=== PATIENT | female | born 1945 | race Caucasian/White ===

== ENCOUNTER → 2017-07-17 13:17 | Outpatient (CLI) | payer MEDICARE, SELFPAY ==
--- NOTE | 2017-07-17 13:24 | CT_ITS ---
STUDY: CT WRIST WITHOUT CONTRAST RIGHT REASON FOR EXAM: Female, 71 years old. Pain denies injury RADIATION DOSAGE (If Supplied By Facility): CTDIvol = ( 24.58 ) mGy, DLP = ( 517.58 ) mGycm. Individualized dose optimization techniques were used for this CT.? TECHNIQUE: Multiple axial images of the wrist were obtained from the distal radius and ulna to the mid phalanges. Sagittal coronal reformatted images are performed. COMPARISON: None. FINDINGS: The visualized fourth fifth second metacarpophalangeal joint show no significant evidence of degenerative change. However there is joint space narrowing and osteophyte formation seen in the third digit metacarpophalangeal joint. There is trace degenerative change in the first metacarpophalangeal joint. There is visualization of osteophyte formation at the first carpometacarpal joint. There is advanced degenerative change at the scaphoid trapezium joint space with bony erosion sclerosis and minimal heterotopic bone formation. There is partially visualized degenerative change in the distal interphalangeal joint of the first digit. There is a small focus of bone cyst or erosion within the lunate without evidence of collapse. There is a small focus of bone cysts involving the triquetrum and slight irregularity without evidence of an acute fracture. There is visualized degenerative change within the hamate and the triquetrum. There is minimal sclerosis or narrowing of the radiocarpal joint. There is a well-corticated density distal to the ulna suggesting possible old fracture. There is bony demineralization of the wrist which is somewhat patchy seen on images such as image #47 axial view of the coronal view image #23. There is no visualized soft tissue mass. There is minimal visible soft tissue swelling. CT/Extremity Upper without Contra IMPRESSION: There are mixed degenerative changes seen in the metacarpal joints and distal interphalangeal joint of the first digit with common osteoarthritic areas of the first carpometacarpal joint and the scaphoid trapezium joint space. Findings are most suggestive of probable osteoarthritis. Recommend correlation with rheumatoid laboratory values. There is no visualized evidence of an acute fracture. There is a somewhat patchy appearance of the bony mineralization of the distal radius which may represent osteoporosis however if possible recommend consideration for follow-up bone scan and/or MRI as well as correlation with any metastatic or metabolic bone history. Electronically Signed: Gabriela Teran MD at 13:59 EDT Tel , Service support ,
== END ==
PROVIDERS: Family Provider Student in an Organized Health Care Education/Training Program; PCP Student in an Organized Health Care Education/Training Program; Visit Provider Specialist
DX: M19.031 Primary osteoarthritis, right wrist (principal)
CPT/HCPCS: 73200

== ENCOUNTER → 2017-10-12 16:42 | Outpatient (CLI) | payer MEDICARE, SELFPAY | PROVIDERS: Visit Provider Obstetrics & Gynecology | DX: N76.4 Abscess of vulva (principal) | CPT/HCPCS: 87070; 87077; 87186; 87205 ==

== ENCOUNTER 2017-12-24 10:14 | Day surgery (SDC) | payer MEDICARE, SELFPAY ==
[2017-12-24] VITALS (9 sets, daily range): BP systolic 91–155; BP diastolic 65–88; PULSE 73–81; RESP 16; TEMP 36.1–37.3; O2SAT 93–97; BMI 35.6
--- NOTE | 2017-12-24 | IMM_PTH ---
PATIENT: JAD GORMAN [place] [facility] [id number] AGE/SX: 72/F ROOM: RE12/24/[address]: Dr. Elana Salamanca MD : 1945 BED: DIS: 12/24/2017 SPEC #: [id number] RECD: 12/25/17 14:45 STATUS: KHADRA REQ #: [id number] HAKEEM: 12/24/17 00:[address]: Elana Salamanca DEPT: IMMUNOHISTOCHEMISTRY RECD BY: Carolina Hoang ENTERED: 12/25/17 14:47 SP TYPE: IMMUNO OTHR DR: Dr. Addi Nicole, DO Tissues: A - Uterine cervix, NOS Procedures: MSH2 (add) MLH-1 (add) MSH6 (add) Anti-PMS2 (add) CEA (add) CK20 (add) CK7 (add) KI-67 (add) P53 (add) AK (add) Vimentin (add) 34BE12 (add) ER (initial) PHYSICIAN & [address] [address] SPECIMEN INFORMATION: Tissue Source: B - Uterine polyps Clinical Info: Postmenopausal bleeding, endometrial hyperplasia Specimen Number: [id number] CPT code: 50401, 24099 x12 METHODOLOGY: Deparaffinized sections of prefer/formalin-fixed tissue or PAP/DQ stained slides are incubated with monoclonal/polyclonal antibodies/oligonucleotide probes. Localization is made via biotin free immunoperoxidase method. Appropriate controls are performed and reacted as expected. Results on target cell population are indicated in the following table: RESULTS: ANTIBODY / CLONE RESULT Block B ER (6F11) positive, dim AK (1E2) positive, dim CK7 (OV-TL12/30) positive CK20 (KS20.8) negative Vimentin (V9) positive CEA (11-7/TF-3HB-1) negative 34BE12 (34BE12) positive, focal Ki-67 (30-9) positive, moderate to high P53 (DO-7) positive, >95% MSH2 (25D12) positive MSH6 (44) positive MLH-1 (M1) positive PMS2 (FPW8578) positive These tests were developed and their performance characteristics determined by [facility]. They may not have been cleared or approved by the U.S. Food and Drug Administration. The FDA has determined that such clearance or approval is not necessary. INTERPRETATION: B. Uterine polyps: Endometrial adenocarcinoma, FIGO 3/3. AM:tony 12/26/17
--- NOTE | 2017-12-24 12:05 | UTC_PTH ---
PATIENT: JAD GORMAN LOC: [facility] [place] U#:[id number] AGE/SX: 72/F ROOM: RE12/24/[address]: Dr. Elana Salamanca MD : 1945 BED: DIS: 12/24/2017 SPEC #: [id number] RECD: 12/24/17 13:52 STATUS: KHADRA REIleana #: [id number] HAKEEM: 12/24/17 12:[address]: Elana Salamanca DEPT: SURGICAL PATHOLOGY RECD BY: Devan Carrasco ENTERED: 12/24/17 14:37 SP TYPE: CO CUR OTHR DR: Dr. Addi Nicole, DO Tissues: A - Uterine cervix, NOS B - POLYP Procedures: Surgery Specimen Level IV HEADER OPERATION: Hysteroscopy, D & C, polypectomy, Symphion PRE-OP DIAGNOSIS: Postmenopausal bleeding, endometrial hyperplasia, abnormal findings on diagnostic imaging TISSUE SUBMITTED: A - Uterine curettings, B - Uterine polyps MICROSCOPIC DIAGNOSIS A. Endometrium, curettings: Endometrial adenocarcinoma, , FIGO grade 3. B. Uterine polyps, biopsy: Endometrial adenocarcinoma,, FIGO grade 3. See Comment. AM:tony 12/25/17 COMMENT B. Immunohistochemistry ([id number]) supports the above diagnosis. Sections show a high grade endometrial adenocarcinoma with glandular, solid and focal papillary architrecture Case has been reviewed in consultation with Dr. Story who concurs with the above diagnosis. IDC:SJ MICROSCOPIC DESCRIPTION . GROSS DESCRIPTION A - Received in fixative is one container labeled with the patient's name and designated uterine curettings. The specimen consists of multiple irregular fragments of parada-pink soft tissue mixed with blood clot that in aggregate measure 3 x 2.5 x 0.3 cm. The specimen is totally submitted in one cassette. B - Received in fixative is one container labeled with the patient's name and designated uterine polyps. The specimen consists of multiple irregular fragments of parada-pink soft tissue that in aggregate measure 3 x 2.5 x 0.3 cm. The specimen is totally submitted in one cassette. / JEN:tony 12/24/17 TC:0 CPT: 69715 x2
--- NOTE | 2017-12-24 12:07 | PCM.DC.D&C ---
Discharge Diet: No Restrictions Discharge Activity: May not drive while taking narcotic pain medications., May Shower, May Take a Tub Bath Return to work on:: 12/24/17 May resume sexual activity in: 1 week Call your doctor if you observe: Fever of 101 or Higher, Inability to have a bowel movement, Using more than one pad per hour, Uncontrolled pain Additional Instructions: tylenol or ibuprofen for milder pain and cramping. Tylenol #3 for more moderate to severe pain. Allergies/Adverse Reactions: Allergies naproxen [From Aleve] Allergy (Verified 12/20/17 09:28) Hives Medications to take at Discharge Celecoxib [Celebrex] 200 mg PO DAILY 12/20/17 Duloxetine Hcl [Cymbalta] 60 mg PO DAILY 12/20/17 Gabapentin [Neurontin] 300 mg PO DAILY 12/20/17 Hydrochlorothiazide [Hctz] 12.5 mg PO DAILY 12/20/17 Losartan Potassium [Cozaar] 100 mg PO DAILY 12/20/17 Magnesium 250 mg PO DAILY 12/20/17 Montelukast Sodium [Singulair] 10 mg PO DAILY 12/20/17 Multivitamin/Iron/Folic Acid [One Daily Multivitamin-Iron Tb] 1 each PO DAILY 12/20/17 Turmeric Root Extract [Turmeric] 500 mg PO DAILY 12/20/17 Acetaminophen/Codeine #3 [Tylenol#3] 1 tablet PO Q6H PRN PRN 2 Days #5 tablet 12/24/17 The following prescriptions were given: Acetaminophen/Codeine #3 [Tylenol#3] 1 tablet PO Q6H PRN PRN 2 Days #5 tablet PRN Reason: Mod-Severe Pain (4-12/26) Primary Care Physician: Addi Nicole DO [Primary Care Provider] - Test Results: Test results from this visit will be discussed in further detail at your follow-up appointment, if applicable. Please Follow Up With: Elana Salamanca MD - [phone] When: in 2 wks for postop check up Proposed Discharge Date: 12/24/17
--- NOTE | 2017-12-24 12:12 | DCINST_ITS ---
Discharge Diet: No Restrictions Discharge Activity: May not drive while taking narcotic pain medications., May Shower, May Take a Tub Bath Return to work on:: 12/24/17 May resume sexual activity in: 1 week Call your doctor if you observe: Fever of 101 or Higher, Inability to have a bowel movement, Using more than one pad per hour, Uncontrolled pain Additional Instructions: tylenol or ibuprofen for milder pain and cramping. Tylenol #3 for more moderate to severe pain. Allergies/Adverse Reactions: Allergies naproxen [From Aleve] Allergy (Verified 12/20/17 09:28) Hives Medications to take at Discharge Celecoxib [Celebrex] 200 mg PO DAILY 12/20/17 Duloxetine Hcl [Cymbalta] 60 mg PO DAILY 12/20/17 Gabapentin [Neurontin] 300 mg PO DAILY 12/20/17 Hydrochlorothiazide [Hctz] 12.5 mg PO DAILY 12/20/17 Losartan Potassium [Cozaar] 100 mg PO DAILY 12/20/17 Magnesium 250 mg PO DAILY 12/20/17 Montelukast Sodium [Singulair] 10 mg PO DAILY 12/20/17 Multivitamin/Iron/Folic Acid [One Daily Multivitamin-Iron Tb] 1 each PO DAILY 12/20/17 Turmeric Root Extract [Turmeric] 500 mg PO DAILY 12/20/17 Acetaminophen/Codeine #3 [Tylenol#3] 1 tablet PO Q6H PRN PRN 2 Days #5 tablet 12/24/17 The following prescriptions were given: Acetaminophen/Codeine #3 [Tylenol#3] 1 tablet PO Q6H PRN PRN 2 Days #5 tablet PRN Reason: Mod-Severe Pain (4-12/26) Primary Care Physician: Addi Nicole DO [Primary Care Provider] - Test Results: Test results from this visit will be discussed in further detail at your follow- up appointment, if applicable. Please Follow Up With: Elana Salamanca MD - [phone] When: in 2 wks for postop check up Proposed Discharge Date: 12/24/17
--- NOTE | 2017-12-24 18:34 | OP.PCM_ITS ---
Operative Report Date of Procedure: 12/24/17 PROCEDURE: Hysteroscopy, Dilation and curettage, Endometrial polypectomy (Symphion) Preoperative Diagnosis: Thickened endometrial stripe on pelvic ultrasound Cervical stenosis Postop diagnosis: Thickened endometrial stripe on pelvic ultrasound Cervical stenosis Anesthesia: MAC IV sedation Rashi Pittman CRNA 10 cc 2% lidocaine paracervical block (Brittany Salamanca) Surgeon: Elana Salamanca MD EBL: Minimal for case Drains: Red Martin, minimal clear yellow urine Complications: none Fluids: replacement Findings: Atrophic appearing cervix, stenotic Fluffy appearing endometrium. Tubal ostia poorly visualized Possible endometrial polyp at posterior lower uterine segment. removed by Symphion Narrative account After the R,B,Alternatives of the procedure were reviewed with the patient and her , informed consent was obtained. The patient was taken to the operating room with an IV running and placed in dorsal supine position of the operating table. She was given MAC IV sedation and repositioned to the dorsal lithotomy position and prepped and draped in the usual sterile fashion. A graves speculum was placed into the vagina and the cervix was brought into view. The cervix was atrophic appearing and Hegar dilators were opened. A single toothed tenaculum was applied to the anterior lip of the cervix. The cervix was instilled with 10cc of 2% lidocaine as a paracervical block using a 20 G spinal needle. The cervix was then gently probed and sequentially dilated to allow admission of the hysteroscope into the endometrial cavity. The hysteroscopy was performed with findings noted as above. Photos were taken. There was fluffy appearing endometrium throughout the uterine cavity with possible small polyps noted at posterior lower uterine segment. Several directed biopsies were taken with the Symphion. A sharp curettage was performed and multiple small pieces of tissue were withdrawn and set aside. One final pass was conducted with the sharp curette tip advanced through the cervix to the uterine fundus . The multiple pieces of tissue were set aside for later pathology review. Excellent hemostasis was noted. The single toothed tenaculum was removed from the cervix and a RayTec was used to remove any remaining tissue and blood from the upper va leydi and cervix. The procedure was terminated. The speculum was removed. The patient was returned to dorsal supine position and awakened from IV sedation and transferred to her recovery room bed in stable condition after tolerating the procedure well. Sponge, lap, needle and instrument counts were correct x two. medications given intraoperatively included 10 cc of 2% lidocaine without epinephrine instilled as a paracervical block. For a complete listing of the medications given intraoperatively, see the anesthesia record.
== END 2017-12-24 15:33 | disposition home or self-care (01) ==
LOC: SDC 10:17 → AC 10:17
PROVIDERS: Family Provider Student in an Organized Health Care Education/Training Program; PCP Student in an Organized Health Care Education/Training Program; Referring Provider Obstetrics & Gynecology; Visit Provider Obstetrics & Gynecology
PROC: (CPT 58558; principal; 2017-12-24 11:50)
DX: C54.0 Malignant neoplasm of isthmus uteri (principal); N88.2 Stricture and stenosis of cervix uteri; N95.0 Postmenopausal bleeding; I10 Essential (primary) hypertension; Z79.899 Other long term (current) drug therapy
CPT/HCPCS: 58558; 88305; 88341; 88342; J7120; J2405

== ENCOUNTER 2018-01-29 06:24 | Day surgery (SDC) | payer MEDICARE, SELFPAY ==
[2018-01-29] VITALS (8 sets, daily range): BP systolic 130–143; BP diastolic 70–87; PULSE 81–90; RESP 14–18; TEMP 36.2–37.1; O2SAT 95–96; BMI 35.4
[2018-01-29] MEDS: Cefazolin 2 GM in 0.9% Normal Saline 100 ML IV (07:54)
[2018-01-29] MEDS: Bupiv/Epi 0.5% Mpf 30 ML Vial (08:22)
--- NOTE | 2018-01-29 08:44 | RAD_ITS ---
STUDY: X-RAY CHEST REASON FOR EXAM: Female, 72 years old. Port placement. TECHNIQUE: Single AP portable view of the chest. COMPARISON: None. FINDINGS: A right-sided portacatheter as been placed. The tip is in the mid portion of the superior vena cava. The lungs are clear and expanded. There is no demonstrated pleural abnormality. Normal size heart. Normal mediastinum and mendez. Normal visualized pulmonary arteries. There is atherosclerotic calcification of the aortic arch with tortuosity. Minimal dextroscoliosis. Normal visualized ribs, clavicles, and shoulders. There is no demonstrated abnormality of the visualized soft tissue structures of the upper abdomen. RAD/CXR for Line Placement IMPRESSION: The tip of the mario catheter is in the midportion of the superior vena cava. Electronically Signed: Bulmaro Alas MD at 9:16 EST Tel [phone], Service support ,
--- NOTE | 2018-01-29 08:56 | OP.PCM_ITS ---
Problem List (1) Encounter for adjustment or management of vascular access device Status: Acute (2) Endometrial adenocarcinoma Status: Acute Report of Operation Date of Procedure: 01/29/18 Pre-Operative Diagnosis: Endometrial carcinoma need for vascular access port Post-Operative Diagnosis: Same Surgery/Procedure Performed:: Ultrasound and fluoroscopy-guided right chest port placement utilizing right IJ Description of Procedure: After obtaining informed consent patient was brought back to the operating room MAC anesthesia was induced and the right chest and neck were prepped in normal sterile fashion. Ultrasound was used to evaluate both IJ is in the right IJ was selected. Next, using a needle, the right IJ was accessed and a guidewire was passed on into the superior vena cava under fluoroscopy guidance. A small incision was made over the puncture site and the dilator introducer was placed over the guidewire. Next this was capped and the pocket was made for the port. 1% lidocaine with epinephrine was injected in the proposed port site. An incision was made with scalpel. Electrocautery was used to make a pocket under the skin and subcutaneous tissue. Hemostasis was obtained. Next, the catheter was tunneled up to the neck incision site and placed through the introducer. The peel-away introducer was removed and the position of the catheter was confirmed on fluoroscopy. Next, the catheter was trimmed and attached to the port with the locking device. Interrupted 2-0 PDS were used to anchor the port to the chest wall and then the port was placed inside the pocket. The pocket was then flushed with saline and the port irrigated with saline. There was good blood return and the port flushed easily. Next, heparin was injected into the port. The skin was closed with subcutaneous interrupted 3-0 Vicryl sutures and Steri strips. A single 3-0 Vicryl sutures placed under the skin at the neck incision site. Steri-Strips were placed as well as op sites. Patient tolerated procedure well, was taken to PACU in stable condition. Chest x-ray will be obtained. Grafts/Implants Used: 8 [place] [employer]
--- NOTE | 2018-01-29 08:56 | DCINST_ITS ---
Discharge Diet: No Restrictions - Pain medication may cause nausea. You should typically eat light foods as you take your pain medication. Discharge Activity: Return to Normal Activity, May Shower - with your bandage in place in 1-2 days after surgery. DO NOT SHOWER WHEN YOUR PORT IS ACCESSED. Call your doctor if your incision/area has: Continuous Slow Oozing, Sudden Increased Bleeding, Increased Pain/ Swelling, Increased Redness Call your doctor if you observe: Fever of 101 or Higher Remove Dressing in (days):: 3 - When you remove the bandage, leave the steri- strips intact until they fall off. Allergies/Adverse Reactions: Allergies naproxen [From Aleve] Allergy (Verified 01/24/18 13:11) Hives Medications to take at Discharge Celecoxib [Celebrex] 200 mg PO DAILY 12/20/17 Duloxetine Hcl [Cymbalta] 60 mg PO DAILY 12/20/17 Gabapentin [Neurontin] 300 mg PO DAILY 12/20/17 Hydrochlorothiazide [Hctz] 12.5 mg PO DAILY 12/20/17 Losartan Potassium [Cozaar] 100 mg PO DAILY 12/20/17 Montelukast Sodium [Singulair] 10 mg PO DAILY 12/20/17 Docusate Sodium [Colace] 100 mg PO BID 01/28/18 Primary Care Physician: Addi Nicole DO [Primary Care Provider] - Test Results: Test results from this visit will be discussed in further detail at your follow- up appointment, if applicable. Please Follow Up With: Yovani Sterling MD When: Please call to schedule 2 week follow up appointment. [phone]
== END 2018-01-29 09:46 | disposition home or self-care (01) ==
LOC: SDC 06:24 → AC 06:26
PROVIDERS: Family Provider Student in an Organized Health Care Education/Training Program; PCP Student in an Organized Health Care Education/Training Program; Referring Provider Surgery; Visit Provider Surgery
PROC: (CPT 36571; principal; 2018-01-29 07:45)
DX: Z45.2 Encounter for adjustment and management of vascular access device (principal); C54.1 Malignant neoplasm of endometrium; I10 Essential (primary) hypertension; M19.90 Unspecified osteoarthritis, unspecified site; Z79.899 Other long term (current) drug therapy
CPT/HCPCS: 00532; 36571; 71045; 77001; J7120; C1788

== ENCOUNTER → 2018-01-30 07:31 | Outpatient (CLI) | payer MEDICARE, SELFPAY ==
--- NOTE | 2018-01-30 07:32 | CT_ITS ---
STUDY: CT CHEST WITH CONTRAST REASON FOR EXAM: Female, 72 years old. New diagnosis of endometrial carcinoma. RADIATION DOSAGE (If Supplied By Facility): CTDIvol = ( 19.09 ) mGy, DLP = ( 1863.3 ) mGycm TECHNIQUE: Transaxial imaging was performed following intravenous administration of 100 ml of Isovue 300 contrast material. Multiplanar coronal and sagittal images were reformatted. Individualized dose optimization techniques were used for this CT. COMPARISON: Comparison is made with prior study dated May 04, 2009. FINDINGS: Images appearance of the thyroid more prominent on the left side. This most likely represents goitrous change. A right-sided portacatheter is seen. Small benign-appearing bilateral axillary lymph nodes. Minimal increased interstitial markings of the lung bases suggests a mild degree of scarring. There is no demonstrated pleural abnormality. Normal heart and pericardium. Normal mediastinum. Normal hilar regions. Normal enhanced pulmonary arteries. Normal aorta arch and descending thoracic aorta. There are degenerative changes of the thoracic spine. Fatty infiltration of the liver. Small hiatal hernia. CT/Chest WITH Contrast IMPRESSION: Findings suggest mild degree of the scarring at the lung bases. Electronically Signed: Bulmaro Alas MD at 12:59 EST Tel [phone], Service support ,
--- NOTE | 2018-01-30 07:32 | CT_ITS ---
STUDY: CT ABDOMEN AND PELVIS WITH CONTRAST REASON FOR EXAM: Female, 72 years old. Endometrial cancer, new diagnosis. Power port placed yesterday. History of total abdominal hysterectomy and bilateral salpingo-oophorectomy. History of hypertension. RADIATION DOSAGE (If Supplied By Facility): DLP = ( 1863.3 ) mGycm TECHNIQUE: Transaxial images were obtained from the dome of the diaphragm to the symphysis pubis without oral contrast. 100 ml of Isovue 300 contrast was administered. Sagittal and coronal images were reconstructed. Individualized dose optimization techniques were used for this CT. COMPARISON: CT chest 01/30/2018. FINDINGS: Body wall soft tissues: No acute process. Osseous structures: Mild scoliosis, osteopenia, moderate prominent degenerative disc disease between L3 and S1 associated with mild facet arthropathy, L4-L5 grade 1 spondylolisthesis with disc bulge contributing to bilateral foraminal stenosis. Inferior chest: Lung bases are clear. Normal distal esophagus. Borderline cardiomegaly without pericardial effusion, with no visible coronary calcifications. Hepatobiliary: Gallbladder absent. Normal liver parenchyma, intrahepatic biliary tree and common bile duct. Pancreas: Minimal pancreatic ductal ectasia and mild pancreatic atrophy. No suspicious lesions. Spleen: Normal. Adrenal glands: Normal. Urogenital: Normal kidneys with symmetric nephrograms. Normal collecting systems, ureters, urinary bladder. Uterus absent. There is no adnexal mass or cyst. Pelvic floor and sidewalls and retroperitoneum: There is no lymphadenopathy of the pelvic floor or pelvic sidewalls, or within the retroperitoneum. Just to the left of the distal most abdominal aorta, intimately associated with the margin of the proximal left common iliac artery there is an oval homogeneously low-density circumscribed lesion measuring approximately 4.4 cm craniocaudal, up to 2.6 cm transverse, and up to 3.1 cm anterior-posterior. The central density of this collection is approximately 10 Hounsfield units, near water density. This is inconsistent with an enlarged lymph node. This could be a lymphatic sac fluid collection of the retroperitoneum, or chronic seroma. Lymphatic sac Cisterna Chyli typically presents more proximally in the retroperitoneum near the diaphragmatic tushar. An alternative etiology might be a metastatic lesion from a cystic/mucinous neoplasm. Vasculature: Mild atherosclerosis. Stomach: No acute process. Small bowel and mesentery: Normal small bowel and mesentery. There is no evidence of mesenteric or omental mass or lymphadenopathy. Large bowel: Normal appendix. Normal large bowel and rectum. Free fluid or free air: None. 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 Discussed in detail above, including differential considerations. Prior imaging is not available for direct comparison. Correlate with any outside imaging if available. This lesion may be amenable to percutaneous sampling/drainage via a left paraspinous approach with CT guidance, if desired. PET/CT may be indicated depending upon suspicion of malignancy. At a minimum, close interval surveillance follow-up would be recommended, follow-up contrast-enhanced CT abdomen and pelvis within 3 months for surveillance of stability. There is no other acute abdominopelvic abnormality. Electronically Signed: Rikki Coon, at 15:20 EST Tel , Service support ,
== END ==
PROVIDERS: Family Provider Student in an Organized Health Care Education/Training Program; PCP Student in an Organized Health Care Education/Training Program; Referring Provider Internal Medicine Medical Oncology; Visit Provider Internal Medicine Medical Oncology
DX: C54.1 Malignant neoplasm of endometrium (principal)
CPT/HCPCS: 71260; 74177; Q9967

== ENCOUNTER → 2018-04-13 08:36 | Outpatient (CLI) | payer MEDICARE, SELFPAY ==
[2018-01-31 09:56] VITALS: BMI 35.6
[2018-02-21 10:58] VITALS: BMI 35.7
[2018-03-28 10:32] VITALS: BMI 36.3
--- NOTE | 2018-04-13 08:49 | BI_ITS ---
MAMMOGRAPHY - BILATERAL SCREENING REASON FOR EXAM: Female, 72 years old. Routine annual screening examination. PERTINENT HISTORY: Mother with breast cancer. History of bilateral breast reduction. TECHNIQUE: Digital bilateral breast kelsea (3D mammographic acquisition) in the CC and MLO projections. 2-D mediolateral oblique (MLO) and craniocaudad (CC) views of both breasts were obtained. CAD: Full Field Digital Mammography with Computer Added Detection was performed. COMPARISON: Comparison is made with prior study dated March 07, 2017 and February 22, 2016. FINDINGS: Breast Composition: There are scattered areas of fibroglandular density. There are no dominant masses or suspicious calcifications. No other significant abnormalities are identified. There has been no significant change since the prior study. BI/SCREENING MAMM (CAD), BILAT IMPRESSION: Stable bilateral screening mammogram. Yearly follow-up mammogram recommended. (A) ASSESSMENT CATEGORY: BIRADS Category 1: Negative. A letter regarding these results will be sent to the patient by the facility within 30 days. Approximately 10% of breast cancers are not detected by mammography. A normal mammogram should not delay biopsy of a clinically suspicious abnormality. [id number] Electronically Signed: Bulmaro Alas MD at 9:37 EST , Service support ,
== END ==
PROVIDERS: Family Provider Student in an Organized Health Care Education/Training Program; PCP Student in an Organized Health Care Education/Training Program; Referring Provider Obstetrics & Gynecology; Visit Provider Obstetrics & Gynecology
DX: Z12.31 Encounter for screening mammogram for malignant neoplasm of breast (principal); Z80.3 Family history of malignant neoplasm of breast
CPT/HCPCS: 77063; 77067

== ENCOUNTER → 2018-08-13 07:36 | Outpatient (CLI) | payer MEDICARE, SELFPAY ==
[2018-01-31 09:56] VITALS: BMI 35.6
[2018-07-17 09:16] VITALS: BMI 36.7
[2018-07-31 09:01] VITALS: BMI 36.7
--- NOTE | 2018-08-13 07:40 | CT_ITS ---
STUDY: CT CHEST WITH CONTRAST REASON FOR EXAM: Female, 72 years old. Endometrial cancer. RADIATION DOSAGE (If Supplied By Facility): CTDIvol = ( 20.62 ) mGy, DLP = ( 2094.59 ) mGycm TECHNIQUE: Transaxial imaging was performed following intravenous administration of 100 IV Isovue 300. Individualized dose optimization techniques were used for this CT. COMPARISON: January 30, 2018 FINDINGS: There is a stable round low-attenuation focus within the left lobe of the thyroid gland which may reflect an underlying cyst. There is no new focal consolidation. There is minimal stable atelectasis and/or scarring at the left lung base. There is minimal stable dependent atelectasis within the lower lobes. Normal heart and pericardium. Normal mediastinum. Normal hilar regions. Normal enhanced pulmonary arteries. There is atherosclerotic calcification of the aortic arch. There are multi-level degenerative changes of the thoracic spine. There is a Mediport within the right anterior chest wall. Please note there is a separate dedicated CT report of the abdomen and pelvis. CT/Chest WITH Contrast IMPRESSION: Stable examination demonstrating no evidence of metastases. Electronically Signed: Sarah Riddle MD at 17:05 EDT Tel , Service support ,
--- NOTE | 2018-08-13 07:43 | CT_ITS ---
STUDY: CT ABDOMEN AND PELVIS WITH CONTRAST REASON FOR EXAM: Female, 72 years old. Endometrial cancer. RADIATION DOSAGE (If Supplied By Facility): CTDIvol = ( 20.62 ) mGy, DLP = ( 2094.59 ) mGycm TECHNIQUE: Transaxial images were obtained from the dome of the diaphragm to the symphysis pubis without oral contrast. 100 IV/Oral Isovue 300 was administered. Sagittal and coronal images were reconstructed. Individualized dose optimization techniques were used for this CT. COMPARISON: January 30, 2018 FINDINGS: Please note there is a separate dedicated CT report of the chest. There is decreased attenuation of the liver consistent with steatosis. There is non-visualization of the gallbladder, which may be secondary to either contraction or a prior cholecystectomy. Normal spleen. Normal pancreas. Normal bilateral adrenal glands. Normal right kidney. Normal left kidney. Normal visualized stomach. Normal small intestine. Normal colon. The appendix is visualized and appears normal. There is diffuse atherosclerotic calcification of the abdominal aorta, without a demonstrated aneurysm. Normal inferior vena cava. There is an interval decrease in size of a round low-attenuation focus abutting the distal abdominal aorta and left common iliac artery measuring 2.1 x 1.9 x 3.8 cm previously measuring by my measurements 3.0 x 2.8 x 4.1 cm. There is a stable round low-attenuation focus within the right gonadal vein (image 67 series 3). Normal urinary bladder. There is absence of the uterus consistent with a prior hysterectomy. There is a small umbilical hernia containing fat. There are diffuse degenerative changes of the visualized lumbar spine. There is a stable grade 1 anterior spondylolisthesis of L4 on L5. CT/Abdomen/Pelvis WITH Contrast IMPRESSION: Interval decrease in size of round low-attenuation focus within the distal left retroperitoneum which may reflect an enlarged lymph node. 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 Fatty infiltration of the liver. Atherosclerosis. Electronically Signed: Sarah Riddle MD at 16:57 EDT Tel , Service support ,
[2018-08-13 08:24] LABS: Absolute Lymphocyte Count 0.47 X10^3/ul (0.83-4.51); Absolute Neutrophil Count 2.5 X10^3/uL (2.0-7.7); Basophil# 0.01 X10^3/uL; Basophil% 0.3 % (0-1); Eosinophil# 0.19 X10^3/uL; Eosinophils% 5.1 % (0-5); Hematocrit 32.2 % (37-47); Hemoglobin 10.7 g/dl (12.0-15.0); Lymphocyte # 0.47 X10^3/ul (4.0); Lymphocyte % 12.7 % (19-41); Mean Corp Hgb Conc 33.2 g/gl (32-36); Mean Corpuscular Hgb 31.9 pg (27.0-32.0); Mean Corpuscular Volume 96.1 fL (81-99); Mean Platelet Vol. 9.5 fl (6.2-12.0); Monocyte# 0.56 X10^3/uL; Monocyte% 15.2 % (0-10); Neutrophil # 2.46 X10^3/uL (2.7-7.7); Neutrophil % 66.7 % (47-70); Platelet Count 190 K/mm3 (150-450); RBC Distribution Width CV 16.1 % (11.6-14.6); Red Blood Count 3.35 M/mm3 (4.2-5.4); White Blood Count 3.7 K/mm3 (4.4-11.0)
[2018-08-13 08:27] LABS: Differential Indicated SCAN CRITERIA MET; POSITIVE COUNT NO; POSITIVE DIFFERENTIAL YES; POSITIVE MORPHOLOGY NO
[2018-08-13 08:54] LABS: AST(SGOT) 21 U/L (15-37); Alanine Aminotransfer ALT/SGPT 29 U/L (13-56); Albumin, Serum 3.4 g/dL (3.2-5.0); Alkaline Phosphatase 95 U/L (45-117); Anion Gap 9 (5-15); BUN 11 mg/dL (7-18); Calcium,Total 8.9 mg/dL (8.5-10.1); Chloride 103 mmol/L (98-107); EST Glomerular Filtration Rate 58 mL/min (>60); Est Glom Filt Rate - Afr Amer 70 mL/min (>60); Globulin 3.4 g/dL (2.2-4.2); Glucose 111 mg/dL (74-106); Potassium 3.7 mmol/L (3.5-5.1); Protein, Total 6.8 g/dL (6.4-8.2); Sodium Level 141 mmol/L (136-145)
[2018-08-14 12:05] LABS: Pathologist Review Reviewed
[2018-08-14 15:51] LABS: Cancer Antigen 125 11.4 U/mL (0.0-38.1)
== END ==
PROVIDERS: Family Provider Student in an Organized Health Care Education/Training Program; PCP Student in an Organized Health Care Education/Training Program; Referring Provider Internal Medicine Medical Oncology; Visit Provider Internal Medicine Medical Oncology
DX: C54.1 Malignant neoplasm of endometrium (principal)
CPT/HCPCS: 71260; 74177; 80053; 85025; 86304; Q9967; A4216

== ENCOUNTER → 2018-12-30 07:09 | Outpatient (CLI) | payer MEDICARE, SELFPAY ==
[2018-01-31 09:56] VITALS: BMI 35.6
[2018-11-06 10:32] VITALS: BMI 36.9
--- NOTE | 2018-12-30 07:10 | CT_ITS ---
STUDY: CT ABDOMEN AND PELVIS WITH CONTRAST REASON FOR EXAM: Female, 73 years old. PET/CT October 17, 2018. CT abdomen pelvis August 13, 2018. RADIATION DOSAGE (If Supplied By Facility): DLP = ( 1152.40 ) mGycm TECHNIQUE: Transaxial images were obtained from the dome of the diaphragm to the symphysis pubis with oral contrast. 100CC ml of Isovue 300 contrast was administered. Sagittal and coronal images were reconstructed. Individualized dose optimization techniques were used for this CT. COMPARISON: None. FINDINGS: The visualized lung bases are clear. The visualized portions of the heart and pericardium are within normal limits. The gallbladder is absent. There is decreased hepatic attenuation. There are no suspicious hepatic lesions. The spleen is normal in size. The pancreas is within normal limits. The adrenal glands are within normal limits. There are no obstructing renal stones. There is no hydronephrosis. There are no focal renal lesions. Normal visualized stomach. There is no bowel obstruction or inflammation. Post hysterectomy changes are present. The aorta is normal in caliber. There is no abdominal or pelvic free air, free fluid, or fluid collection. There is very mild bilateral pelvic periureteral lymph node prominence. There are no destructive osseous lesions. Multilevel degenerative changes are present throughout the spine. Grade 1 spondylolisthesis is present at the L4-L5 level. CT/Abdomen/Pelvis WITH Contrast IMPRESSION: No acute abdominal or pelvic pathology. Very mild bilateral periureteral pelvic lymph node prominence, previously described, nonspecific. Correlate clinically. Fatty liver. Electronically Signed: Jef Maarvilla, at 17:27 EDT Tel , Service support ,
[2018-12-30 08:42] LABS: Absolute Lymphocyte Count 0.46 X10^3/uL (0.83-4.51); Absolute Neutrophil Count 2.7 X10^3/uL (2.0-7.7); Basophil# 0.03 X10^3/uL; Basophil% 0.8 % (0-1); Eosinophil# 0.34 X10^3/uL; Eosinophils% 8.8 % (0-5); Hemoglobin 13.6 g/dL (12.0-15.0); Lymphocyte # 0.46 X10^3/ul (4.0); Lymphocyte % 11.9 % (19-41); Mean Corp Hgb Conc 33.2 g/dL (32-36); Mean Corpuscular Hgb 30.2 pg (27.0-32.0); Mean Corpuscular Volume 91.1 fL (81-99); Mean Platelet Vol. 8.9 fl (6.2-12.0); Monocyte# 0.36 X10^3/uL; Monocyte% 9.3 % (0-10); NRBC Flagged by Analyzer 0 % (0-5); Neutrophil # 2.68 X10^3/uL (2.7-7.7); Neutrophil % 68.9 % (47-70); POSITIVE DIFFERENTIAL YES; Platelet Count 247 K/mm3 (150-450); RBC Distribution Width CV 13.3 % (11.6-14.6); RBC Distribution Width SD 44.6 fl (35.1-43.9); White Blood Count 3.9 K/mm3 (4.4-11.0)
[2018-12-30 08:43] LABS: Differential Indicated SCAN CRITERIA MET
[2018-12-30 08:58] LABS: ALB/GLOB Ratio 1.1 RATIO (0.9-2.4); AST(SGOT) 27 U/L (15-37); Alanine Aminotransfer ALT/SGPT 41 U/L (13-56); Albumin, Serum 3.8 g/dL (3.2-5.0); Alkaline Phosphatase 84 U/L (45-117); Anion Gap 5 (5-15); BUN 11 mg/dL (7-18); BUN/Creat Ratio 11.6 RATIO (10-20); Chloride 102 mmol/L (98-107); Creatinine, Serum 0.95 mg/dL (0.55-1.02); EST Glomerular Filtration Rate 62 mL/min (>60); Est Glom Filt Rate - Afr Amer 75 mL/min (>60); Globulin 3.5 g/dL (2.2-4.2); Glucose 105 mg/dL (74-106); Potassium 3.6 mmol/L (3.5-5.1); Protein, Total 7.3 g/dL (6.4-8.2); Sodium Level 138 mmol/L (136-145)
[2018-12-30 15:04] LABS: Pathologist Review Reviewed
[2018-12-31 09:59] LABS: Cancer Antigen 125 8.6 U/mL (0.0-38.1)
== END ==
PROVIDERS: Family Provider Student in an Organized Health Care Education/Training Program; PCP Student in an Organized Health Care Education/Training Program; Referring Provider Internal Medicine Medical Oncology; Visit Provider Internal Medicine Medical Oncology
DX: C54.1 Malignant neoplasm of endometrium (principal)
CPT/HCPCS: 74177; 80053; 85025; 86304; Q9967; A4216

== ENCOUNTER → 2019-04-17 10:47 | Outpatient (CLI) | payer MEDICARE, SELFPAY ==
[2018-01-31 09:56] VITALS: BMI 35.6
[2019-01-01 14:02] VITALS: BMI 41.5
--- NOTE | 2019-04-17 10:50 | BI_ITS ---
MAMMOGRAPHY - BILATERAL SCREENING REASON FOR EXAM: Female, 73 years old. Routine annual screening examination. PERTINENT HISTORY: Mother with breast cancer. Remote bilateral breast reduction surgery. TECHNIQUE: Digital bilateral breast robert (3D mammographic acquisition) in the CC and MLO projections. 2-D mediolateral oblique (MLO) and craniocaudad (CC) views of both breasts were obtained. CAD: Full Field Digital Mammography with Computer Added Detection was performed. COMPARISON: Comparison is made with prior study dated April 13, 2018 and March 07, 2017. FINDINGS: Breast Composition: There are scattered areas of fibroglandular density. There are no dominant masses or suspicious calcifications. Stable small bilateral benign appearing axillary lymph nodes. No other significant abnormalities are identified. There has been no significant change since the prior study. BI/SCREEN MAMM (CAD) W/ROBERT BILAT IMPRESSION: Stable bilateral screening mammogram. Yearly follow-up mammogram recommended. (A) ASSESSMENT CATEGORY: BIRADS Category 2: Benign. A letter regarding these results will be sent to the patient by the facility within 30 days. Approximately 10% of breast cancers are not detected by mammography. A normal mammogram should not delay biopsy of a clinically suspicious abnormality. [id number] Electronically Signed: Bulmaro Alas, at 12:14 EST , Service support ,
== END ==
PROVIDERS: Family Provider Student in an Organized Health Care Education/Training Program; PCP Student in an Organized Health Care Education/Training Program; Referring Provider Student in an Organized Health Care Education/Training Program; Visit Provider Student in an Organized Health Care Education/Training Program
DX: Z12.31 Encounter for screening mammogram for malignant neoplasm of breast (principal); Z80.3 Family history of malignant neoplasm of breast
CPT/HCPCS: 77063; 77067

== ENCOUNTER → 2019-06-30 07:32 | Outpatient (CLI) | payer MEDICARE, SELFPAY ==
[2018-01-31 09:56] VITALS: BMI 35.6
[2019-01-01 14:02] VITALS: BMI 41.5
--- NOTE | 2019-06-30 07:36 | CT_ITS ---
STUDY: CT ABDOMEN AND PELVIS WITH CONTRAST REASON FOR EXAM: Female, 73 years old. Endometrial cancer surveillance, c/o abdominal discomfort. Prior cholecystectomy, JODIE/BSO, radiation, chemotherapy 07/2018. RADIATION DOSAGE (If Supplied By Facility): CTDIvol = ( 20.93 ) mGy, DLP = ( 1124.06 ) mGycm TECHNIQUE: Transaxial images were obtained from the dome of the diaphragm to the symphysis pubis with oral contrast. Oral and amp; IV Readi-CAT and amp; 100mL Isovue-370 was administered. Sagittal and coronal images were reconstructed. Individualized dose optimization techniques were used for this CT. COMPARISON: Comparison is made with prior examination December 30, 2018. FINDINGS: The visualized lung bases are unremarkable. The visualized portions of the heart are within normal limits. There is decreased attenuation of the liver consistent with steatosis. The patient is status post cholecystectomy. Normal spleen. Normal pancreas. There is a small, circumscribed, smooth, low attenuation left adrenal mass, consistent with an adrenal adenoma. This measures 1 cm. Normal right adrenal gland. Normal right kidney. Small left parapelvic renal cysts. Normal visualized stomach. Normal small intestine. Normal colon. The appendix is visualized and appears normal. There is scattered atherosclerotic calcification of the abdominal aorta, without a demonstrated aneurysm. Normal inferior vena cava. Normal retroperitoneum. Normal urinary bladder. There is absence of the uterus consistent with a prior hysterectomy. The patient is status post bilateral salpingo-oophorectomy. Normal abdominal wall. There are diffuse degenerative changes of the visualized lumbar spine. CT/Abdomen/Pelvis WITH Contrast IMPRESSION: Diffuse fatty infiltration of the liver. There has been no change since prior study. Electronically Signed: Bulmaro Alas, at 8:46 EDT , Service support ,
[2019-06-30 07:56] LABS: CREATININE FINGERSTICK 0.9 mg/dL (0.55-1.02); EGFR FINGERSTICK > 60.0000 mL/min (>60)
[2019-06-30 08:15] LABS: Absolute Lymphocyte Count 0.79 X10^3/uL (0.83-4.51); Absolute Neutrophil Count 3.3 X10^3/uL (2.0-7.7); Basophil# 0.02 X10^3/uL; Basophil% 0.4 % (0-1); Eosinophil# 0.23 X10^3/uL; Eosinophils% 4.6 % (0-5); Hematocrit 41.1 % (37-47); Hemoglobin 13.7 g/dL (12.0-15.0); Lymphocyte # 0.79 X10^3/ul (4.0); Lymphocyte % 15.8 % (19-41); Mean Corp Hgb Conc 33.3 g/dL (32-36); Mean Corpuscular Hgb 30.8 pg (27.0-32.0); Mean Corpuscular Volume 92.4 fL (81-99); Mean Platelet Vol. 9.4 fl (6.2-12.0); Monocyte# 0.68 X10^3/uL; Monocyte% 13.6 % (0-10); NRBC Flagged by Analyzer 0 % (0-5); Neutrophil # 3.28 X10^3/uL (2.7-7.7); Neutrophil % 65.4 % (47-70); Platelet Count 245 K/mm3 (150-450); RBC Distribution Width CV 12.7 % (11.6-14.6); RBC Distribution Width SD 42.8 fl (35.1-43.9); Red Blood Count 4.45 M/mm3 (4.2-5.4)
[2019-06-30 08:33] LABS: ALB/GLOB Ratio 1.1 RATIO (0.9-2.4); AST(SGOT) 22 U/L (15-37); Alanine Aminotransfer ALT/SGPT 38 U/L (13-56); Albumin, Serum 3.6 g/dL (3.2-5.0); Alkaline Phosphatase 79 U/L (45-117); Anion Gap 4 (5-15); BUN 15 mg/dL (7-18); BUN/Creat Ratio 15.5 RATIO (10-20); Chloride 104 mmol/L (98-107); Creatinine, Serum 0.97 mg/dL (0.55-1.02); EST Glomerular Filtration Rate 60 mL/min (>60); Est Glom Filt Rate - Afr Amer 73 mL/min (>60); Globulin 3.4 g/dL (2.2-4.2); Glucose 95 mg/dL (74-106); LDH 182 U/L (84-246); Potassium 3.8 mmol/L (3.5-5.1); Sodium Level 138 mmol/L (136-145)
[2019-06-30] MEDS: 0.9% Saline Lock 10 ML Syringe IV (08:53)
[2019-07-01 12:43] LABS: Cancer Antigen 125 6.8 U/mL (0.0-38.1)
== END ==
PROVIDERS: Family Provider Student in an Organized Health Care Education/Training Program; PCP Student in an Organized Health Care Education/Training Program; Referring Provider Internal Medicine Medical Oncology; Visit Provider Internal Medicine Medical Oncology
DX: C54.1 Malignant neoplasm of endometrium (principal)
CPT/HCPCS: 74177; 80053; 83615; 85025; 86304; Q9967; A4216

== ENCOUNTER → 2019-11-26 14:06 | Outpatient (CLI) | payer MEDICARE, SELFPAY ==
[2018-01-31 09:56] VITALS: BMI 35.6
[2019-11-26 12:06] VITALS: BMI 37.5
--- NOTE | 2019-11-26 14:10 | VDLE_ITS ---
Reason For Study: Pain RIGHT LEFT GSV is normal. CFV is compressible, spontaneous, phasic, CFV is compressible, spontaneous, phasic, competent, and demonstrates normal competent and demonstrates normal augmentation. augmentation. FV is compressible, spontaneous, phasic, competent and demonstrates normal augmentation. POP V is compressible, spontaneous, phasic, competent and demonstrates normal augmentation. T/P Trunk is compressible. PTV is compressible. RT PerV is compressible. Procedure Exam performed in department. A preliminary report was called and/or faxed to Dr. Bustos. Interpretation Summary There is no evidence of right lower extremity deep vein thrombosis. Right great saphenous vein appears patent and compressible segmentally. Patent and compressible left common femoral vein Ordering Physician: David Bustos Referring Physician: Addi Nicole Performed By: Alix Lyons, KEYONA, RVT
== END ==
PROVIDERS: PCP Student in an Organized Health Care Education/Training Program; Referring Provider Internal Medicine Cardiovascular Disease; Visit Provider Internal Medicine Cardiovascular Disease
DX: M79.661 Pain in right lower leg (principal)
CPT/HCPCS: 93971

== ENCOUNTER → 2019-12-24 08:18 | Outpatient (CLI) | payer MEDICARE, SELFPAY ==
[2018-01-31 09:56] VITALS: BMI 35.6
[2019-07-02 13:41] VITALS: BMI 37.7
[2019-11-26 12:06] VITALS: BMI 37.5
--- NOTE | 2019-12-24 08:19 | CT_ITS ---
STUDY: CT ABDOMEN AND PELVIS WITH CONTRAST REASON FOR EXAM: Female, 74 years old. ENDOMETRIAL CA FOLLOW UP. PRIOR HYSTERECTOMY WITH CHEMO AND RADIATION 2 YEARS AGO RADIATION DOSAGE (If Supplied By Facility): CTDIvol = ( 17.60 ) mGy, DLP = ( 1128.96 ) mGycm TECHNIQUE: Transaxial images were obtained from the dome of the diaphragm to the symphysis pubis with oral contrast. 100 mL ISOVUE-300 was administered. Sagittal and coronal images were reconstructed. Individualized dose optimization techniques were used for this CT. COMPARISON: 06/30/2019 FINDINGS: There are chronic interstitial fibrotic changes of the lung bases. The visualized portions of the heart are within normal limits. There is decreased attenuation of the liver consistent with steatosis. Normal gallbladder and extrahepatic biliary system. Normal spleen. Normal pancreas. Stable nodular thickening of the left adrenal gland. The right adrenal gland is normal. No solid renal masses or hydronephrosis. Normal visualized stomach. Normal small intestine. There is moderate fecal retention throughout the colon but no colon wall thickening or pericolonic stranding. There is non-visualization of the appendix. Mild scattered atherosclerosis of the abdominal aorta. Normal inferior vena cava. Normal retroperitoneum. Normal urinary bladder. There is absence of the uterus consistent with a prior hysterectomy. No pelvic sidewall adenopathy or pelvic mass. Normal abdominal wall. Degenerative disc disease at multiple lumbar levels with acquired canal stenosis at L3-L4 and L4-L5. Anterolisthesis of L4-L5 due to facet arthropathy is stable. CT/Abdomen/Pelvis WITH Contrast IMPRESSION: 1. Since 06/30/2019, stable exam. No intra-abdominal/pelvic mass/metastasis. Electronically Signed: Eliud Barillas MD ([place]) at 11:30 EDT , Service support ,
[2019-12-24 08:51] LABS: CREATININE FINGERSTICK 0.7 mg/dL (0.55-1.02)
[2019-12-24 09:04] LABS: Absolute Lymphocyte Count 0.62 X10^3/uL (0.83-4.51); Basophil# 0.02 X10^3/uL; Basophil% 0.5 % (0-1); Eosinophil# 0.22 X10^3/uL; Eosinophils% 5.1 % (0-5); Hematocrit 41.2 % (37-47); Hemoglobin 13.7 g/dL (12.0-15.0); Lymphocyte # 0.62 X10^3/ul (4.0); Lymphocyte % 14.3 % (19-41); Mean Corp Hgb Conc 33.3 g/dL (32-36); Mean Corpuscular Hgb 31.1 pg (27.0-32.0); Mean Corpuscular Volume 93.4 fL (81-99); Mean Platelet Vol. 9.5 fl (6.2-12.0); Monocyte# 0.52 X10^3/uL; NRBC Flagged by Analyzer 0 % (0-5); Neutrophil # 2.95 X10^3/uL (2.7-7.7); Neutrophil % 67.9 % (47-70); Platelet Count 240 K/mm3 (150-450); RBC Distribution Width CV 12.2 % (11.6-14.6); RBC Distribution Width SD 42.4 fl (35.1-43.9); Red Blood Count 4.41 M/mm3 (4.2-5.4); White Blood Count 4.3 K/mm3 (4.4-11.0)
[2019-12-24] MEDS: 0.9% Saline Lock 10 ML Syringe IV (09:12)
[2019-12-24 09:21] LABS: ALB/GLOB Ratio 1.1 RATIO (0.9-2.4); AST(SGOT) 20 U/L (15-37); Alanine Aminotransfer ALT/SGPT 39 U/L (13-56); Albumin, Serum 3.6 g/dL (3.2-5.0); Alkaline Phosphatase 78 U/L (45-117); Anion Gap 4 (5-15); BUN 12 mg/dL (7-18); BUN/Creat Ratio 12.2 RATIO (10-20); Calcium,Total 9.1 mg/dL (8.5-10.1); Chloride 103 mmol/L (98-107); Creatinine, Serum 0.98 mg/dL (0.55-1.02); EST Glomerular Filtration Rate 59 mL/min (>60); Est Glom Filt Rate - Afr Amer 71 mL/min (>60); Globulin 3.4 g/dL (2.2-4.2); Glucose 106 mg/dL (74-106); LDH 180 U/L (84-246); Potassium 3.6 mmol/L (3.5-5.1); Sodium Level 138 mmol/L (136-145)
[2019-12-25 05:12] LABS: Cancer Antigen 125 7.5 U/mL (0.0-38.1)
== END ==
PROVIDERS: PCP Student in an Organized Health Care Education/Training Program; Referring Provider Internal Medicine Medical Oncology; Visit Provider Internal Medicine Medical Oncology
DX: C54.1 Malignant neoplasm of endometrium (principal)
CPT/HCPCS: 74177; 80053; 83615; 85025; 86304; A4216

== ENCOUNTER → 2020-04-19 09:44 | Outpatient (CLI) | payer MEDICARE, SELFPAY ==
[2018-01-31 09:56] VITALS: BMI 35.6
[2019-11-26 12:06] VITALS: BMI 37.5
--- NOTE | 2020-04-19 09:47 | BI_ITS ---
MAMMOGRAPHY - BILATERAL SCREENING REASON FOR EXAM: Female, 74 years old. Routine annual screening examination. PERTINENT HISTORY: Mother with breast cancer. History of remote bilateral breast reduction surgery. TECHNIQUE: Digital bilateral breast robert (3D mammographic acquisition) in the CC and MLO projections. 2-D mediolateral oblique (MLO) and craniocaudad (CC) views of both breasts were obtained. CAD: Full Field Digital Mammography with Computer Added Detection was performed. COMPARISON: Comparison is made with prior study dated 04/17/2019 and 04/13/2018. FINDINGS: Breast Composition: There are scattered areas of fibroglandular density. There are no dominant masses or suspicious calcifications. Stable small benign-appearing bilateral axillary lymph nodes. No other significant abnormalities are identified. There has been no significant change since the prior study. BI/SCRN MAMM (CAD)W/ROBERT BILAT IMPRESSION: Stable bilateral screening mammogram. Yearly follow-up mammogram recommended. (A) ASSESSMENT CATEGORY: BIRADS Category 2: Benign. A letter regarding these results will be sent to the patient by the facility within 30 days. Approximately 10% of breast cancers are not detected by mammography. A normal mammogram should not delay biopsy of a clinically suspicious abnormality. [id number] Electronically Signed: Bulmaro Alas MD at 14:14 EST , Service support ,
== END ==
PROVIDERS: PCP Student in an Organized Health Care Education/Training Program; Referring Provider Student in an Organized Health Care Education/Training Program; Visit Provider Student in an Organized Health Care Education/Training Program
DX: Z12.31 Encounter for screening mammogram for malignant neoplasm of breast (principal)
CPT/HCPCS: 77063; 77067

== ENCOUNTER 2020-05-17 09:33 | Outpatient (RCR) | payer MEDICARE, SELFPAY ==
[2018-01-31 09:56] VITALS: BMI 35.6
[2019-11-26 12:06] VITALS: BMI 37.5
== END 2020-05-17 23:59 ==
LOC: IMMUN 09:33
PROVIDERS: PCP Student in an Organized Health Care Education/Training Program; Visit Provider Family Medicine
DX: Z23 Encounter for immunization (principal)
CPT/HCPCS: 0011A; 0012A

== ENCOUNTER → 2020-06-23 08:08 | Outpatient (CLI) | payer MEDICARE, SELFPAY ==
[2018-01-31 09:56] VITALS: BMI 35.6
[2019-11-26 12:06] VITALS: BMI 37.5
--- NOTE | 2020-06-23 08:14 | CT_ITS ---
STUDY: CT ABDOMEN AND PELVIS WITH CONTRAST REASON FOR EXAM: Female, 74 years old. Abdominal pain, distention, history of uterine cancer RADIATION DOSAGE (If Supplied By Facility): CTDIvol = ( 16.55 ) mGy, DLP = ( 1172.48 ) mGycm TECHNIQUE: Transaxial images were obtained from the dome of the diaphragm to the symphysis pubis without oral contrast. Oral and amp; IV Readi-CAT and amp; 100mL Isovue-300 was administered. Sagittal and coronal images were reconstructed. Individualized dose optimization techniques were used for this CT. COMPARISON: 12/24/2019 FINDINGS: The visualized lung bases are unremarkable. The visualized portions of the heart are within normal limits. There is decreased attenuation of the liver consistent with steatosis. There is non-visualization of the gallbladder, which may be secondary to either contraction or a prior cholecystectomy. Normal spleen. Normal pancreas. Normal bilateral adrenal glands. Normal right kidney. Normal left kidney. Normal visualized stomach. Normal small intestine. Retained stool noted throughout the colon. There is non-visualization of the appendix. Normal abdominal aorta. Normal inferior vena cava. Normal retroperitoneum. Normal urinary bladder. Normal abdominal wall. There are diffuse degenerative changes of the visualized lumbar spine, and pelvis. There is a grade 1 spondylolisthesis at L4-5 CT/Abdomen/Pelvis WITH Contrast IMPRESSION: Fatty liver, no discrete lesion No free intraperitoneal fluid, air, or suspicious adenopathy No CT evidence of metastasis Degenerative bony changes No interval change Electronically Signed: Juan Diego Hmalin MD at 9:51 EDT , Service support ,
[2020-06-23] MEDS: 0.9 % NaCl (Sterile) Posiflush 10 mL IV (08:40)
[2020-06-23] MEDS: 0.9% Saline Lock 10 ML Syringe IV (08:40)
== END ==
PROVIDERS: PCP Student in an Organized Health Care Education/Training Program; Referring Provider Internal Medicine Medical Oncology; Visit Provider Internal Medicine Medical Oncology
DX: C54.1 Malignant neoplasm of endometrium (principal); Z85.42 Personal history of malignant neoplasm of other parts of uterus
CPT/HCPCS: 74177; Q9967; A4216

== ENCOUNTER → 2020-07-26 07:50 | Outpatient (CLI) | payer MEDICARE, SELFPAY ==
[2018-01-31 09:56] VITALS: BMI 35.6
[2020-06-28 14:02] VITALS: BMI 37.5
--- NOTE | 2020-07-26 07:53 | NM_ITS ---
CLINICAL: 74-year-old female with reported history of endometrial carcinoma and current complaint of low back discomfort. WHOLE BODY 99m Tc MDP RADIONUCLIDE BONE SCINTIGRAPHY COMPARISON: CT of the abdomen-pelvis report 06/23/2020 FINDINGS: Following the intravenous administration of 26.0 mCi of 99m Tc MDP, whole body bone images reveal: 1. Increased radiopharmaceutical concentration is demonstrated in the mid cervical spine posteriorly on the right, lower cervical spine posteriorly on the left, fifth lumbar vertebra posteriorly on the left, the acromioclavicular and sternoclavicular compartments of both shoulders, the right knee, the posterior compartment of the left ankle. 2. The remaining skeletal structures are scintigraphically unremarkable with normal-appearing renal images and urinary bladder activity identified. NM/Bone Scan Whole Body IMPRESSION: 1. The increase in radiopharmaceutical concentration defined in the cervical and lumbar spine, bilateral shoulders, the right knee and left ankle is most consistent with degenerative arthritis. Dedicated plain film radiography may be of benefit in the region of the lower lumbar spine. 2. There is no definitive typical scintigraphic evidence of diffuse axial skeletal metastatic disease on the current examination. Electronically Signed: Rikki Alves DO at 22:16 EDT Tel , Service support ,
== END ==
PROVIDERS: PCP Student in an Organized Health Care Education/Training Program; Referring Provider Internal Medicine Medical Oncology; Visit Provider Internal Medicine Medical Oncology
DX: C54.1 Malignant neoplasm of endometrium (principal); M54.9 Dorsalgia, unspecified
CPT/HCPCS: 78306; A9503; A4216

== ENCOUNTER → 2020-07-29 10:26 | Outpatient (CLI) | payer MEDICARE, SELFPAY ==
[2018-01-31 09:56] VITALS: BMI 35.6
[2020-07-28 14:38] VITALS: BMI 37.3
--- NOTE | 2020-07-29 10:27 | RAD_ITS ---
STUDY: X-RAY - LUMBAR SPINE REASON FOR EXAM: Female, 74 years old. BACK PAIN TECHNIQUE: 5 view(s) of the lumbar spine were obtained. COMPARISON: None FINDINGS: Normal lumbar lordosis. Mild levoscoliosis centered at L3. 10 mm of anterolisthesis of L4 on L5. There is multilevel endplate spondylosis of the lumbar vertebrae. There is multi-level degenerative disc disease with multi-level disc space narrowing. The soft tissue structures are unremarkable. RAD/L/S Spine Min 4 Views IMPRESSION: Mild levoscoliosis with degenerative disc disease and 10 mm of anterolisthesis of L4 on L5. Electronically Signed: Rikki Valdez MD at 10:53 EDT Tel , Service support ,
--- NOTE | 2020-07-29 10:27 | RAD_ITS ---
STUDY: X-RAY - PELVIS REASON FOR EXAM: Female, 74 years old. BACK PAIN TECHNIQUE: One view of the pelvis was obtained. COMPARISON: None. FINDINGS: There is a non-specific bowel gas pattern. Normal visualized soft tissue structures. Normal bilateral iliac wings, sacroiliac joints and visualized sacrum. Normal visualized bilateral superior and inferior pubic rami. Normal pubic symphysis. Normal ischial tuberosities. Normal visualized right femoral head. Normal right acetabulum. Normal right hip joint. Normal visualized left femoral head. Normal left acetabulum. Normal left hip joint. RAD/Pelvis 1 or 2 Views IMPRESSION: Normal x-ray examination of the pelvis. Electronically Signed: Rikki Valdez MD at 10:52 EDT Tel , Service support ,
== END ==
PROVIDERS: PCP Student in an Organized Health Care Education/Training Program; Referring Provider Internal Medicine Medical Oncology; Visit Provider Internal Medicine Medical Oncology
DX: M43.16 Spondylolisthesis, lumbar region (principal); M51.36 Other intervertebral disc degeneration, lumbar region; M48.061 Spinal stenosis, lumbar region without neurogenic claudication
CPT/HCPCS: 72110; 72170

== ENCOUNTER 2020-08-19 10:30 | Outpatient (RCR) | payer MEDICARE, SELFPAY ==
[2018-01-31 09:56] VITALS: BMI 35.6
[2020-07-28 14:38] VITALS: BMI 37.3
--- NOTE | 2020-08-09 13:41 | HP.PTEVAL_ITS ---
Patient's Visit Information JAD GORMAN is a 74 year old F referred to Physical Therapy by Dr. Addi Nicole DO with a diagnosis of Midline LBP. Date of Evaluation: 08/09/20 Physical Therapist: Keon Livingston DPT, OCS, CSCS - Visit Plan Frequency: 2-3x /Week Duration: 4-6 Weeks Plan: 2-3x/week for 4-6 weeks for. 1. Neutral spine focus and strengthening. 2. strech ROM low back flexion bias to HEP. MH, lossing tx as needed. Pt has vacation scheduled in two weeks which we will work around. - Subjective Early June had some sciatica for the first time ever. Descried as LBP adn L leg. Back does not hurt anymore for the most part, left with pain from L knee to L ankle going numb intermittently. Toes are numb all the time from previous chemo endometrial CA. These symptoms happen with standing. Feels pretty good in sitting. Retired 8 yrs ago and is admitedly sedentary and lazy. 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 Sunday tried to use weed eater ad back hurt during but she worked through it for 45 minutes. Hurt a little bit the following day. Basic ADLS are getting done. Cleans floors on knees and it does not hurt. No active hobbies. No regular exercises. Can lean on cat at [employer] and walk, without it she is done qucikly. - Pain L leg numbness Pain Intensity (Out of 10): 0 Pain Intensity Range: 0, 3 - Objective Increased lumbar lordosis posture, kyphoitc thoracic spine. No tenderness in musce tissue in low back or upper gluts. Walking I with short steps adn no antalgia. Transfers I, steps reciprocally with one rail, some weakness feeling on L. LB ext min deficits no pain, flexion mod deficits no pain, SB mod deficts no pain. Walking 200 feet today gives L anterior lower leg numbness. reflexes 2/3 patella R adn 1/3 , achilles 2/3 B. Sensation LE WNL to gross light touch. Strength is 4-/5 throughout LE except L hip flexion whcih is 3+ - Goals Goal 1:: Pt I in appropriate NS ex for LB Goal Time Frame: 4-6 Weeks Goal 2:: Walk 400 feet without any evidence of symptoms in LE. Goal Time Frame: 4-6 Weeks Goal 3:: Pt score 10 or less on oswestry Goal Time Frame: 4-6 Weeks Goal 4:: Pt feel 75% better in overall activity and function Goal Time Frame: 4-6 Weeks - Rehabilitation Potential Physical Therapy Diagnosis: Likely stenosis limiting walking distance. Rehabilitation Potential: Fair - Anticipated Interventions Patient/Client Instruction: Educate patient on: Condition For the Purpose of:: To decrease pain, To increase ROM, To improve muscle performance and motor function Therapeutic Exercise to Include: Strength training, Postural training, Flexibilty training, Gait and locomotor training, Neuromotor development, Passive ROM, Active ROM For the Purpose of:: To decrease pain, To increase ROM, To improve nutrient delivery to tissue, To improve muscle performance and motor function, To increase tolerance to activity/condition/position, To improve gait and locomotor functions Manual Therapy Techniques to Include: Mobilization, Soft tissue mobilization For the Purpose of:: To decrease pain, To increase ROM Thermo therapy (hot pack): Yes Pelvic traction supine: Yes For the Purpose of:: To decrease pain Thank you for the opportunity to evaluate your patient. For Medicare and Medicare HMO plans, please review the plan of care and approve it. It will need to be FAXED BACK to us at [phone] for Medicare purposes. For Medicare only, by signing this I certify the plan of care. Please let me know if there are questions or concerns regarding this plan of care. Physician Signature: Date:
--- NOTE | 2020-09-02 11:17 | HP.PTREVAL ---
Dr. Addi Nicole, DO, It has been my pleasure to treat JAD GORMAN over the last 6 visits for Midline LBP. Please see the progress note below for an update on the physical therapy plan of care! Subjective: Vacation was good. L leg numb from knee to ankle, did not get worse or better while she was gone. L hip hurts at t iems and she has to sit. About the same as before vacation. Sciatica is gone. Pt wants to f/u with knee doctor before continuing any therapy or going back to Dr. Nicole. Objective/Function: ext and flexion of spine still very stiff but no pain. Has numbness L distal leg laterally consistently. No other major changes. Pt wanted to see knee doctor as she had injections 6 weeks ago and wants to know options there. Willing to f/u in 2-3 weeks and learn strengthening at that time if still problematic. Plan Plan: f/u 3 weeks to check LB and leg numbness symptoms and teach mat strength as needed /desired. may need to get back to dr. Nicole if not improving or f/u after taht in PT if willing to do strengthening. Goals Goal 1:: Pt I in appropriate NS ex for LB Goal Time Frame: 4-6 Weeks Goal Progress: stretch, not strength yet Goal 2:: Walk 400 feet without any evidence of symptoms in LE. Goal Time Frame: 4-6 Weeks Goal Progress: still numbnes much of anthony Goal 3:: Pt score 10 or less on oswestry Goal Time Frame: 4-6 Weeks Goal Progress: close Goal 4:: Pt feel 75% better in overall activity and function Goal Time Frame: 4-6 Weeks Goal Progress: Goal Met Anticipated Interventions Patient/Client Instruction: Educate patient on: Condition For the Purpose of:: To decrease pain, To increase ROM, To improve muscle performance and motor function Therapeutic Exercise to Include: Strength training, Postural training, Flexibilty training, Gait and locomotor training, Neuromotor development, Passive ROM, Active ROM For the Purpose of:: To decrease pain, To increase ROM, To improve nutrient delivery to tissue, To improve muscle performance and motor function, To increase tolerance to activity/condition/position, To improve gait and locomotor functions Manual Therapy Techniques to Include: Mobilization, Soft tissue mobilization For the Purpose of:: To decrease pain, To increase ROM Thermo therapy (hot pack): Yes Pelvic traction supine: Yes For the Purpose of:: To decrease pain Please do not hesitate to contact me at [phone] by phone or if you have questions or concerns regarding this new plan of care! Sincerely, Keon Livingston, DPT, OCS, CSCS
--- NOTE | 2020-10-28 12:12 | HP.PT.NRP ---
JAD GORMAN was seen in my office for initial evaluation on 08/09/20. The following Plan of Care was established for this patient: Initial Frequency: 2-3x /Week Initial Duration: 4-6 Weeks Patient/Client Instruction: Educate patient on: Condition For the Purpose of:: To decrease pain, To increase ROM, To improve muscle performance and motor function Therapeutic Exercise to Include: Strength training, Postural training, Flexibilty training, Gait and locomotor training, Neuromotor development, Passive ROM, Active ROM For the Purpose of:: To decrease pain, To increase ROM, To improve nutrient delivery to tissue, To improve muscle performance and motor function, To increase tolerance to activity/condition/position, To improve gait and locomotor functions Manual Therapy Techniques to Include: Mobilization, Soft tissue mobilization For the Purpose of:: To decrease pain, To increase ROM Thermo therapy (hot pack): Yes Pelvic traction supine: Yes For the Purpose of:: To decrease pain This patient was last seen in our office 09/02/20. Pertinent comments regarding their Physical therapy will appear below: Pt seen 7 visits and was 80% improved at last attendance. She was to f/u one month later but cancelled that visit. at this point, I will discontinue due to nonattendance. At this point I will be discontinuing this patient from physical therapy. I would be happy to see this patient again in the future if found appropriate by the physician. Thank you! Keon Livingston, DPT, OCS, CSCS Balance/Gait/Functional tests - Balance/Special Test Scores Oswestry Low Back Score: 11
== END 2020-08-19 19:00 | disposition home or self-care (01) ==
LOC: PT 10:30
PROVIDERS: PCP Student in an Organized Health Care Education/Training Program; Referring Provider Student in an Organized Health Care Education/Training Program; Visit Provider Student in an Organized Health Care Education/Training Program
DX: M54.5 Low back pain (principal)
CPT/HCPCS: 97012; 97110; 97162; 97530

== ENCOUNTER → 2020-12-23 08:02 | Outpatient (CLI) | payer MEDICARE, SELFPAY ==
[2018-01-31 09:56] VITALS: BMI 35.6
--- NOTE | 2020-12-23 08:15 | CT_ITS ---
CT of the left lower extremity without contrast INDICATION: Left knee arthrosis, preop knee arthroplasty TECHNIQUE: Multiple thin section axial CT images of the left lower extremity were obtained through the hip, knee, and ankle without the administration of intravenous contrast and filmed in bone windows. Furthermore, multiple sagittal and coronal reconstructions were performed. Dose limiting techniques were utilized. FINDINGS: No abnormal soft tissue mass, lymphadenopathy, or fluid collection. Left hip: No acute fracture or dislocation. No lytic or blastic lesions. No severe arthrosis. Left knee: No acute fracture or dislocation. No lytic or blastic lesions. Moderate joint space narrowing of the medial compartment consistent with moderate arthrosis. Mild lateral compartment arthrosis. Some lateral tibial translation. Left ankle: No acute fracture or dislocation. No lytic or blastic lesions. No arthrosis. IMPRESSION: Moderate left knee arthrosis. Electronically Signed: Rikki Valdez MD at 12:42 EDT Tel , Service support , CT/Extremity Lower without Contra
--- NOTE | 2020-12-23 08:15 | RAD_ITS ---
STUDY: X-RAY CHEST REASON FOR EXAM: Female, 75 years old. Preoperative evaluation. TECHNIQUE: Frontal and lateral views of the chest. COMPARISON: Chest CT dated 08/13/2018. FINDINGS: Right internal jugular catheter with tip projected over the upper SVC. The lungs are clear and expanded. There is no demonstrated pleural abnormality. Cardiomegaly. Normal mediastinum and mendez. Normal visualized pulmonary arteries. Aortic tortuosity with calcification. Diffuse thoracic spondylosis. Normal visualized ribs, clavicles, and shoulders. There is no demonstrated abnormality of the visualized soft tissue structures of the upper abdomen. RAD/Chest PA and Lateral IMPRESSION: Cardiomegaly with no acute or active cardiopulmonary disease. Right internal jugular catheter with tip projected over the upper SVC. Electronically Signed: Bruce Pollard MD at 10:00 EDT , Service support ,
[2020-12-23 09:13] LABS: Absolute Lymphocyte Count 0.57 X10^3/uL (0.83-4.51); Basophil# 0.03 X10^3/uL; Basophil% 0.5 % (0-1); Eosinophil# 0.38 X10^3/uL; Eosinophils% 6.9 % (0-5); Hematocrit 42.9 % (37-47); Hemoglobin 14.2 g/dL (12.0-15.0); Lymphocyte # 0.57 X10^3/ul (0.83-4.51); Lymphocyte % 10.3 % (19-41); Mean Corp Hgb Conc 33.1 g/dL (32-36); Mean Corpuscular Hgb 30.7 pg (27.0-32.0); Mean Corpuscular Volume 92.7 fL (81-99); Monocyte# 0.55 X10^3/uL; Monocyte% 9.9 % (0-10); NRBC Flagged by Analyzer 0 % (0-5); Neutrophil # 3.98 X10^3/uL (2.7-7.7); Neutrophil % 71.9 % (47-70); POSITIVE DIFFERENTIAL YES; Platelet Count 260 K/mm3 (150-450); RBC Distribution Width CV 12.7 % (11.6-14.6); RBC Distribution Width SD 43.3 fl (35.1-43.9); Red Blood Count 4.63 M/mm3 (4.2-5.4); White Blood Count 5.5 K/mm3 (4.4-11.0)
[2020-12-23 09:25] LABS: Differential Indicated SCAN CRITERIA MET
[2020-12-23 09:56] LABS: Anion Gap 8 (5-15); BUN 16 mg/dL (7-18); BUN/Creat Ratio 16.1 RATIO (10-20); Chloride 105 mmol/L (98-107); Creatinine, Serum 0.99 mg/dL (0.55-1.02); EST Glomerular Filtration Rate 58 mL/min (>60); Est Glom Filt Rate - Afr Amer 70 mL/min (>60); Glucose 128 mg/dL (74-106); Potassium 3.9 mmol/L (3.5-5.1); Sodium Level 142 mmol/L (136-145)
== END ==
PROVIDERS: Physician Assistant Surgical; PCP Student in an Organized Health Care Education/Training Program; Referring Provider Specialist; Visit Provider Specialist
DX: Z01.818 Encounter for other preprocedural examination (principal); M21.162 Varus deformity, not elsewhere classified, left knee
CPT/HCPCS: 36415; 71046; 73700; 80048; 85025

== ENCOUNTER → 2020-12-31 13:14 | Outpatient (CLI) | payer MEDICARE, SELFPAY ==
[2018-01-31 09:56] VITALS: BMI 35.6
[2020-12-31 14:21] LABS: Albumin, Serum 3.4 g/dL (3.2-5.0)
== END ==
PROVIDERS: PCP Student in an Organized Health Care Education/Training Program; Referring Provider Specialist; Visit Provider Specialist
DX: Z01.812 Encounter for preprocedural laboratory examination (principal)
CPT/HCPCS: 36415; 82040

== ENCOUNTER 2021-04-12 09:45 | Emergency (ER) | payer MEDICARE, SELFPAY ==
[2018-01-31 09:56] VITALS: BMI 35.6
[2021-04-12 09:46] VITALS: BP 163/91; PULSE 102; RESP 16; TEMP 36.2; O2SAT 95; BMI 36.9
--- NOTE | 2021-04-12 10:09 | EDS_ITS ---
HPI HPI - URI History of Present Illness Chief Complaint: Nosebleed Informant: patient and spouse/S.O. Onset/Context/Timing Onset: Hours (2-3) Context: Sudden Onset (atraumatic) Timing: Continuous Location: left side Current Severity: Severe Maximum Severity: Severe Narrative Narrative: Patient was spontaneous left-sided nosebleed that started a couple hours prior to evaluation. She states when holding her nose, the bleeding does not stop and just goes back into her throat and she has been swallowing some blood. No vomiting. No lightheadedness, chest pain, or any other symptoms of anemia. No history of this. Does not take any antiplatelet or anticoagulant me dications. ROS ROS ED Constitutional Constitutional ED: Denies chills or fever(s) Eyes Eyes: Denies change in vision or diplopia ENT ENT ED: Reports as per HPI and epistaxis; Denies sinus pain or sore throat Cardiovascular Cardiovascular: Denies chest pain or palpitations Respiratory/Chest Respiratory/Chest: Denies cough or dyspnea Gastrointestinal Gastrointestinal: Denies abdominal pain, diarrhea, nausea or vomiting Genitourinary Genitourinary ED: Denies dysuria or hematuria Musculoskeletal Musculoskeletal: Denies back pain or neck pain Integumentary Denies abscess or rash Neurologic Neurologic: Denies headache(s), paresthesias or weakness Psychiatric Psychiatric: Denies anxiety or suicidal thoughts [facility] Medical History Chemotherapy management, encounter for Educational circumstance Encounter for adjustment or management of vascular access device Endometrial adenocarcinoma Essential (primary) hypertension Hyperlipidemia Hypertrophic obstructive cardiomyopathy (HOCM) Osteoarthritis Peripheral neuropathy Home Medications celecoxib 200 mg PO DAILY 12/20/17 [History Last Taken Unknown] duloxetine 60 mg PO DAILY 12/20/17 [History Last Taken Unknown] losartan 100 mg PO DAILY 12/20/17 [History Last Taken 01/29/18 05:00 100 MG] montelukast 10 mg PO DAILY 12/20/17 [History Last Taken Unknown] lorazepam 0.5 mg PO TID PRN PRN 06/19/18 [History Last Taken Unknown] amitriptyline 25 mg PO QHS 07/25/18 [History Last Taken Unknown] cholecalciferol (vitamin D3) 2,000 unit PO DAILY 07/25/18 [History Last Taken Unknown] multivit with min-folic acid 200 mcg PO QHS 09/09/18 [History Last Taken Unknown] lidocaine-prilocaine 1 applicatio TP DAILY PRN PRN 30 Days #1 tube 09/22/19 [Rx Last Taken Unknown] furosemide 20 mg tablet 20 mg PO DAILY PRN tab 11/26/19 [History Last Taken Unknown] magnesium 250 mg tablet 250 mg PO DAILY 11/26/19 [History Last Taken Unknown] pyridoxine (vitamin B6) 100 mg tablet 100 mg PO DAILY 11/26/19 [History Last Taken Unknown] gabapentin 300 mg capsule 900 mg PO QHS cap 11/25/20 [History Last Taken Unknown] oxybutynin chloride 5 mg tablet 5 mg PO DAILY 11/25/20 [History Last Taken Unknown] metoprolol succinate 50 mg tablet,extended release 24 hr 50 mg PO DAILY #90 tab 12/17/20 [Rx Last Taken Unknown] meloxicam 7.5 mg tablet 7.5 mg PO tab 01/20/21 [History Last Taken Unknown] oxycodone 5 mg tablet ea PO 01/20/21 [History Last Taken Unknown] Allergy/AdvReac Type Severity Reaction Status Date / Time naproxen [From Aleve] Allergy Intermediate Hives Verified 04/12/21 09:46 Family History Father Diabetes Myocardial infarction Mother Breast cancer Macular degeneration Glaucoma Daughter Endometrial cancer Grandmother Cervical cancer Brother Glaucoma Surgical History H/O bilateral breast reduction surgery History of colonoscopy History of dilation and curettage History of tonsillectomy and adenoidectomy History of total hysterectomy Hx of cholecystectomy Hx of left knee surgery s/p port placement Status post hysteroscopic polypectomy Social History Smoking Status: Never smoker alcohol intake: never substance use type: does not use caffeine: Yes Type: coffee EXAM Physical Exam Const Vital Signs: 04/12/21 09:46 Temperature 97.1 F L Temperature Source Temporal Pulse Rate 102 H Respiratory Rate 16 Blood Pressure 163/91 H Blood Pressure Mean 115 Pulse Ox 95 Oxygen Delivery Method Room Air Positive well nourished and well developed General Appearance ED: well developed and NAD HEENT Reports moist mucous membranes HEENT Narrative: Left naris is full of clots, there is mild active bleeding posteriorly in the oropharynx, and minimal oozing anteriorly. Limited evaluation due to clots. Right side is clear. No stridor, handling secretions. normocephalic and atraumatic Eyes PERRL and EOMs intact bilaterally Neck full ROM and supple Resp normal respiratory effort and no use of accessory muscles Back/Spine normal ROM General Back: other FROM Extremity normal to inspection General Extremety ED: Negative for edema, pulses abnormal or tenderness General Extremity: Negative for edema or pulses abnormal Neuro oriented x3, CN's II-XII intact bilaterally and no sensory deficits noted Sensorium / Orientation: awake and alert Motor Exam: strength 5/5 throughout Skin no rashes or lesions noted and no wounds MDM MDM MDM Narrative Medical decision making narrative: See the procedure note, her labs were noted she is not anemic, her vital signs remained stable although a little hypertensive as she was anxious. Hemostasis was obtained with a an anterior rapid Rhino. She will follow up with otolaryngology in 2 days for removal. We discussed managing tips at home and reasons to return. Lab Data Attestation: I reviewed the patient's lab results. Labs: Laboratory Results - last 24 hr 04/12/21 10:18 WBC 5.8 RBC 4.89 Hgb 14.6 Hct 44.9 MCV 91.8 MCH 29.9 MCHC 32.5 RDW Std Deviation 43.9 RDW Coeff of Yajaira 13.1 Plt Count 259 MPV 10.2 Procedures Other Procedures Procedure(s): Epistaxis care/nasal packing: Initially patient was unable to blow clots out of the left naris. I assisted her with suction using the Yankauer gently anteriorly, we were able to bring the clot more anterior and then she was able to pull it out and then blow the rest of the clots and blood from the left side, until she was able to blow air through both sides clearly. She had persistent brisk venous oozing from the left side. Immediately, [address] Garner's solution was instilled, the patient did feel the liquid in her posterior oropharynx, and she held pressure for 10 minutes breathing through her mouth. This resulted in temporary hemostasis without swallowing blood, however when she let off the pressure the bleeding persisted. It was brisk and further evaluation was very limited. Therefore emergently, a 5.5 cm rapid Rhino not inflatable was inserted. Patient was observed for another 15 or 20 minutes, and good hemostasis was obtained. No posterior oropharyngeal bleeding. Her labs were noted. Tolerated relatively well without complications. Critical Care Time Critical Care Time: Yes Critical care time (excluding procedures): 30-74 minutes (30 min), Including time spent:, Discussing w/Patient &/or Family/Telephone Clerks Supervisor and Performing Direct Patient Care at Bedside (not including procedure of nasal packing) Discharge Plan Triage Chief Complaint: Nosebleed ED Provider: Eric Umana Dx/Rx/DC Orders Clinical Impression: Acute anterior epistaxis Instructions: ED Epistaxis (Adult) Prescriptions: No Action furosemide 20 mg tablet 20 mg PO DAILY PRN (Reason: edema) RF: 0 magnesium 250 mg tablet 250 mg PO DAILY RF: 0 pyridoxine (vitamin B6) 100 mg tablet 100 mg PO DAILY RF: 0 metoprolol succinate [Toprol XL] 50 mg tablet extended release 24 hr 50 mg PO DAILY Qty: 90 RF: 3 oxybutynin chloride 5 mg tablet 5 mg PO DAILY RF: 0 meloxicam 7.5 mg tablet 7.5 mg PO RF: 0 oxycodone 5 mg tablet PO RF: 0 celecoxib 200 MG capsule 200 mg PO DAILY RF: 0 montelukast 10 MG tablet 10 mg PO DAILY RF: 0 losartan 100 MG tablet 100 mg PO DAILY RF: 0 duloxetine 60 MG capsule 60 mg PO DAILY RF: 0 gabapentin 300 mg capsule 900 mg PO QHS RF: 0 lorazepam 0.5 MG tablet 0.5 mg PO TID PRN PRN (Reason: Anxiety) RF: 0 amitriptyline 25 MG tablet 25 mg PO QHS RF: 0 cholecalciferol (vitamin D3) 2,000 UNIT capsule 2,000 unit PO DAILY RF: 0 multivit with min-folic acid 200 MCG tablet,chewable 200 mcg PO QHS RF: 0 lidocaine-prilocaine 30 GM cream 1 applicatio TP DAILY PRN PRN (Reason: Not Specified) 30 Days Qty: 1 RF: 2 Primary Care Provider: Addi Nicole Referrals: Keon Caldera MD [STAFF PHYSICIAN] - 04/14/21 (Call for appointment. If they are not able to get you into the , that is okay.) Addi Nicole DO [Primary Care Provider] - Disposition Disposition: Home, Self Care
[2021-04-12] MEDS: Mixture 30 ML Bottle 5 ML TOPICAL (10:20)
[2021-04-12 10:25] LABS: Hematocrit 44.9 % (37-47); Hemoglobin 14.6 g/dL (12.0-15.0); Mean Corp Hgb Conc 32.5 g/dL (32-36); Mean Corpuscular Hgb 29.9 pg (27.0-32.0); Mean Corpuscular Volume 91.8 fL (81-99); Mean Platelet Vol. 10.2 fl (6.2-12.0); Platelet Count 259 K/mm3 (150-450); RBC Distribution Width CV 13.1 % (11.6-14.6); RBC Distribution Width SD 43.9 fl (35.1-43.9); Red Blood Count 4.89 M/mm3 (4.2-5.4); White Blood Count 5.8 K/mm3 (4.4-11.0)
== END 2021-04-12 11:31 | disposition home or self-care (01) ==
PROVIDERS: Emergency Provider Emergency Medicine; PCP Student in an Organized Health Care Education/Training Program; Visit Provider Emergency Medicine
DX: R04.0 Epistaxis (principal); I42.1 Obstructive hypertrophic cardiomyopathy; E78.5 Hyperlipidemia, unspecified; I10 Essential (primary) hypertension; M19.90 Unspecified osteoarthritis, unspecified site; G62.9 Polyneuropathy, unspecified; Z79.899 Other long term (current) drug therapy
CPT/HCPCS: 30901; 85027; 99283; A4216

== ENCOUNTER 2021-04-19 10:32 | Outpatient (CLI) | payer MEDICARE, SELFPAY ==
[2018-01-31 09:56] VITALS: BMI 35.6
--- NOTE | 2021-04-19 10:54 | BI_ITS ---
MAMMOGRAPHY - BILATERAL SCREENING REASON FOR EXAM: Female, 75 years old. Routine annual screening examination. PERTINENT HISTORY: Mother with breast cancer. History of prior bilateral breast reduction surgery. History of endometrial carcinoma. TECHNIQUE: Digital bilateral breast robert (3D mammographic acquisition) in the CC and MLO projections. 2-D mediolateral oblique (MLO) and craniocaudad (CC) views of both breasts were obtained. CAD: Full Field Digital Mammography with Computer Added Detection was performed. COMPARISON: Comparison is made with prior study dated 04/19/2020 and 04/17/2019. FINDINGS: Breast Composition: There are scattered areas of fibroglandular density. There are no dominant masses or suspicious calcifications. Stable small benign-appearing bilateral axillary lymph nodes. No other significant abnormalities are identified. There has been no significant change since the prior study. BI/SCRN MAMM (CAD)W/ROBERT BILAT IMPRESSION: Stable bilateral screening mammogram. Yearly follow-up mammogram recommended. (A) ASSESSMENT CATEGORY: BIRADS Category 2: Benign. A letter regarding these results will be sent to the patient by the facility within 30 days. Approximately 10% of breast cancers are not detected by mammography. A normal mammogram should not delay biopsy of a clinically suspicious abnormality. [id number] Electronically Signed: Bulmaro Alas MD at 12:30 EST ,
== END 2021-04-19 23:59 | disposition short-term general hospital (02) ==
PROVIDERS: PCP Student in an Organized Health Care Education/Training Program; Referring Provider Student in an Organized Health Care Education/Training Program; Visit Provider Student in an Organized Health Care Education/Training Program
DX: Z12.31 Encounter for screening mammogram for malignant neoplasm of breast (principal)
CPT/HCPCS: 77063; 77067

== ENCOUNTER → 2022-04-20 | Outpatient (CLI) | payer MEDICARE, SELFPAY ==
[2018-01-31 09:56] VITALS: BMI 35.6
--- NOTE | 2022-04-20 09:40 | BI_ITS ---
MAMMOGRAPHY - BILATERAL SCREENING REASON FOR EXAM: Female, 76 years old. Routine annual screening examination. PERTINENT HISTORY: Mother with breast cancer. Remote bilateral breast reduction surgery. TECHNIQUE: Digital bilateral breast robert (3D mammographic acquisition) in the CC and MLO projections. 2-D mediolateral oblique (MLO) and craniocaudad (CC) views of both breasts were obtained. CAD: Full Field Digital Mammography with Computer Added Detection was performed. COMPARISON: Comparison is made with prior study dated 04/19/2021 and 04/19/2020. FINDINGS: Breast Composition: There are scattered areas of fibroglandular density. There are no dominant masses or suspicious calcifications. No other significant abnormalities are identified. There has been no significant change since the prior study. BI/SCRN MAMM (CAD)W/ROBERT BILAT IMPRESSION: Stable bilateral screening mammogram. Yearly follow-up mammogram recommended. (A) ASSESSMENT CATEGORY: BIRADS Category 1: Negative. A letter regarding these results will be sent to the patient by the facility within 30 days. Approximately 10% of breast cancers are not detected by mammography. A normal mammogram should not delay biopsy of a clinically suspicious abnormality. [id number] Electronically Signed: Bulmaro Alas MD at 11:24 EST ,
== END | disposition home or self-care (01) ==
PROVIDERS: PCP Student in an Organized Health Care Education/Training Program; Visit Provider Student in an Organized Health Care Education/Training Program
DX: Z12.31 Encounter for screening mammogram for malignant neoplasm of breast (principal)
CPT/HCPCS: 77063; 77067

== ENCOUNTER → 2022-12-28 | Outpatient (CLI) | payer MEDICARE, SELFPAY ==
[2018-01-31 09:56] VITALS: BMI 35.6
--- NOTE | 2022-12-28 14:39 | ECHOCS_ITS ---
Reason For Study: HOCM Procedure This was a 2D Doppler, Color Flow transthoracic echocardiogram. The study was technically difficult. Contrast injection was performed. Exam performed in department. Left Ventricle Normal LV size. Left ventricular systolic function is normal. The estimated ejection fraction is 65 %. Stage 1 diastolic dysfunction. Valsalva LV gradient 30 mmHg. No regional wall motion abnormalities noted. Right Ventricle Normal RV size. Normal systolic function. Atria Normal left atrium. Mitral Valve Normal mitral valve. Tricuspid Valve Normal tricuspid valve. Aortic Valve Normal aortic valve. Pulmonic Valve The pulmonic valve is not well visualized. Great Vessels Normal aortic root. The pulmonary artery is normal size. Normal inferior vena cava. Pericardium/Pleural No pericardial effusion. Medication 22 gauge I.V. with prn adaptor inserted into right arm. Diluted definity 2.5ml given slow IV push to enhance endocardial definition. MMode/2D Measurements & Calculations LVIDd: 4.0 cm IVSd: 0.74 cm Ao root diam: 3.1 cm LVIDs: 2.3 cm LVPWd: 0.85 cm LA dimension: 3.9 cm FS: 43.3 % LAV(MOD-sp4): 44.9 ml LA A4 area: 16.1 cm2 TAPSE: 2.1 cm Time Measurements MV dec time: 0.35 sec Doppler Measurements & Calculations MV E max joseph: 54.5 cm/sec Lat Peak E' Joseph: 5.6 cm/sec Med Peak E' Joseph: 8.4 cm/sec MV A max joseph: 105.6 cm/sec E/E' lat: 9.8 E/E' med: 6.5 MV E/A: 0.52 MV V2 max: 125.5 cm/sec MV P1/2t max joseph: 78.6 cm/sec Ao V2 max: 129.6 cm/sec MV max P.3 mmHg MV P1/2t: 119.3 msec Ao max P.7 mmHg MV V2 mean: 57.2 cm/sec MV dec slope: 192.9 cm/sec2 MV mean P.6 mmHg MV V2 VTI: 29.7 cm MVA(P1/2t): 1.8 cm2 LV V1 max: 84.9 cm/sec PA V2 max: 83.1 cm/sec LV V1 max P.9 mmHg ECHO/Echo Complete W/ Contrast Interpretation Summary Normal LV size. Left ventricular systolic function is normal. The estimated ejection fraction is 65 %. Stage 1 diastolic dysfunction. Valsalva LV gradient 30 mmHg. Contrast injection was performed. Ordering Physician: David Bustos Referring Physician: David Bustos Performed By: Damon Hess RCS
== END | disposition home or self-care (01) ==
LOC: CVS 14:38
PROVIDERS: PCP Student in an Organized Health Care Education/Training Program; Referring Provider Internal Medicine Cardiovascular Disease; Visit Provider Internal Medicine Cardiovascular Disease
DX: I42.1 Obstructive hypertrophic cardiomyopathy (principal)
CPT/HCPCS: 93306; Q9957; A4216; C8929

== ENCOUNTER → 2023-04-24 | Outpatient (CLI) | payer MEDICARE, SELFPAY ==
[2018-01-31 09:56] VITALS: BMI 35.6
[2023-03-01 07:28] VITALS: BMI 35.6
--- NOTE | 2023-04-24 09:10 | BI_ITS ---
MAMMOGRAPHY - BILATERAL SCREENING REASON FOR EXAM: Female, 77 years old. Routine annual screening examination. PERTINENT HISTORY: Mother with breast cancer. History of prior bilateral breast reduction surgery. History of remote endometrial cancer. TECHNIQUE: Digital bilateral breast robert (3D mammographic acquisition) in the CC and MLO projections. 2-D mediolateral oblique (MLO) and craniocaudad (CC) views of both breasts were obtained. CAD: Full Field Digital Mammography with Computer Added Detection was performed. COMPARISON: Comparison is made with prior study dated April 20, 2022 and April 19, 2021. FINDINGS: Breast Composition: There are scattered areas of fibroglandular density. There are no dominant masses or suspicious calcifications. No other significant abnormalities are identified. There has been no significant change since the prior study. BI/SCRN MAMM (CAD)W/ROBERT BILAT IMPRESSION: Stable bilateral screening mammogram. Yearly follow-up mammogram recommended. (A) ASSESSMENT CATEGORY: BIRADS Category 1: Negative. A letter regarding these results will be sent to the patient by the facility within 30 days. Approximately 10% of breast cancers are not detected by mammography. A normal mammogram should not delay biopsy of a clinically suspicious abnormality. [id number] Electronically Signed: Bulmaro Alas MD at 9:59 EST ,
--- OUTSIDE RECORDS SUMMARY | 2023-04-24 09:29 | XMS RPT_ITS | CCD ---
Author Name Unknown Address [address] [place] [address] Organization [facility] Care Team Providers Care Marble Setter Helper Name Role Phone Thiago Shah Unavailable Unavailable PROVIDER, UNKNOWN Unavailable Unavailable Corey Addi Unavailable Unavailable Thiago Shah Unavailable Unavailable PROVIDER, UNKNOWN Unavailable Unavailable Corey Addi Unavailable Unavailable ADDI TRIVEDI DO Primary Care Physician Addi Trivedi DO Primary Care Provider Addi Trivedi DO Primary Care Provider ADDI TRIVEDI DO Primary Care Physician ADELAIDA RON MD Attending Unavailable TRIVEDI DO ADDI Primary Care Unavailable ADELAIDA RON MD Attending Unavailable TRIVEDI DOADDI Primary Care Unavailable ADELAIDA RON MD Attending Unavailable TRIVEDI DO, ADDI Primary Care Unavailable ADELAIDA RON MD Attending Unavailable TRIVEDI DOADDI Primary Care Unavailable ADELAIDA RON MD Attending Unavailable TRIVEDI DO ADDI Primary Care Unavailable Trivedi DO Addi Nanci Primary Care Provider Addi Trivedi DO Primary Care Provider Addi Trivedi Primary Care Provider Thiago Shah MD Unavailable Magi Whelan APRN, CNP Unavailable MAGI VILLA Attending Unavailable TRIVEDI, ADDI Primary Care Unavailable MAGI VILLA Attending Unavailable TRIVEDI, ADDI Primary Care Unavailable TRIVEDI, ADDI L Primary Care Unavailable TRIVEDI, ADDI L Attending Unavailable TRIVEDI, ADDI L Primary Care Unavailable TRIVEDI ADDI L Primary Care Unavailable TRIVEDI, ADDI L Referring Unavailable TRIVEDI, ADDI L Primary Care Unavailable TRIVEDI, ADDI L Attending Unavailable ADDI TRIVEDI Primary Care Unavailable ADDI TRIVEDI Attending Unavailable ADDI TRIVEDI Primary Care Unavailable ADDI TRIVEDI Referring Unavailable ADDI TRIVEDI Primary Care Unavailable ADDI TRIVEDI Referring Unavailable ADDI TRIVEDI Primary Care Unavailable ADDI TRIVEDI Referring Unavailable Allergies Allergy Classification Reported Allergen(s) Allergy Type Date of Onset Reaction(s) Facility (6 sources) Naproxen; Translations: [naproxen] Drug Allergy 6 [facility] (20 sources) Grass pollen; Translations: [GRASS POLLEN] Propensity to adverse reactions [address] [place] [address] Work Phone: (20 sources) Naproxen; Translations: [NAPROXEN SODIUM] Drug Allergy 6 [facility] Work Phone: (20 sources) Seasonal [Other] Propensity to adverse reactions 6 [facility] Work Phone: (1 source) Grass pollen Drug Intolerance 6 [facility] (1 source) OTHER; Translations: [OTHER] Propensity to adverse reactions (disorder) 6 [facility] Repository Medications Current Medications Medication Drug Class(es) Dates Sig (Normalized) Sig (Original) amLODIPine 5 mg oral tablet (9 sources) Dihydropyridine Calcium Channel Jd Start: 06-28-2022 End: 12-20-2022 amLODIPine (Norvasc) 5 MG tablet Take 5 mg by mouth. 0 06/28/2022 Active Completed/Discontinued Medications Medication Drug Class(es) Dates Sig (Normalized) Sig (Original) amitriptyline hydrochloride 25 mg oral tablet (20 sources) Tricyclic Antidepressant Start: 09-15-2022 take 1 tablet by mouth once daily at bedtime amitriptyline (ELAVIL) 25 mg tablet Take 1 tablet by mouth daily at bedtime. 90 tablet 1 09/15/2022 Active Problems Active Problems Problem Classification Problem Date Documented Date Episodic/Chronic Anxiety disorders (20 sources) Anxiety disorder, unspecified; Translations: [Anxiety] Onset: 11-22-2012 11-22-2012 Chronic Cancer of ovary (2 sources) Malignant neoplasm of unspecified ovary; Translations: [Malignant neoplasm of unspecified ovary] Onset: 01-02-2018 Chronic Cancer of uterus (15 sources) Malignant neoplasm of endometrium; Translations: [Endometrial carcinoma] Onset: 01-03-2018 06-17-2018 Chronic Chronic obstructive pulmonary disease and bronchiectasis (1 source) Bronchitis; Translations: [Bronchitis, not specified as acute or chronic] Episodic Disorders of lipid metabolism (20 sources) Mixed hyperlipidemia; Translations: [Mixed hyperlipidemia] Onset: 10-18-2018 10-18-2018 Chronic Diverticulosis and diverticulitis (20 sources) Diverticulosis of colon; Translations: [Diverticulosis of large intestine without perforation or abscess without bleeding] Onset: 12-01-2009 12-01-2009 Chronic Essential hypertension (20 sources) Essential (primary) hypertension; Translations: [Benign essential hypertension] Onset: 10-23-2007 10-23-2007 Chronic Genitourinary symptoms and ill-defined conditions (20 sources) Mixed urinary incontinence; Translations: [Mixed incontinence] Onset: 10-20-2020 10-20-2020 Chronic Immunizations and screening for infectious disease (1 source) Needs influenza immunization; Translations: [Encounter for immunization] Episodic Menopausal disorders (1 source) Vaginal dryness; Translations: [Menopausal and female climacteric states] 02-20-2023 Chronic Mood disorders (9 sources) Dysthymia; Translations: [Dysthymic disorder] Onset: 06-29-2022 06-29-2022 Chronic Nonmalignant breast conditions (20 sources) Fibrocystic disease of breast; Translations: [Diffuse cystic mastopathy of unspecified breast] Onset: 02-28-2007 02-28-2007 Chronic Nutritional deficiencies (20 sources) Vitamin D deficiency; Translations: [Vitamin D deficiency, unspecified] Onset: 04-23-2020 04-23-2020 Chronic Osteoarthritis (20 sources) Unspecified osteoarthritis, unspecified site; Translations: [Arthritis of right knee] Onset: 01-03-2018 04-23-2020 Chronic Other and ill-defined heart disease (20 sources) Cardiomegaly; Translations: [Cardiomegaly] Onset: 10-17-2018 10-25-2018 Chronic Other and ill-defined heart disease (20 sources) Left ventricular hypertrophy; Translations: [Cardiomegaly] Onset: 04-23-2020 04-23-2020 Chronic Other bone disease and musculoskeletal deformities (5 sources) Senile osteopenia; Translations: [Other specified disorders of bone density and structure, unspecified site] Onset: 11-01-2022 11-01-2022 Episodic Other circulatory disease (1 source) Wheeze - rhonchi; Translations: [Other specified symptoms and signs involving the circulatory and respiratory systems] Episodic Other connective tissue disease (10 sources) History of prosthetic unicompartmental arthroplasty of left knee; Translations: [Presence of left artificial knee joint] Onset: 01-21-2021 01-21-2021 Chronic Other connective tissue disease (10 sources) History of prosthetic unicompartmental arthroplasty of right knee; Translations: [Presence of right artificial knee joint] Onset: 02-28-2022 Chronic Other inflammatory condition of skin (20 sources) Rosacea; Translations: [Rosacea, unspecified] Onset: 06-16-2008 06-16-2008 Chronic Other lower respiratory disease (1 source) Lower respiratory tract infection; Translations: [Unspecified acute lower respiratory infection] Episodic Other nervous system disorders (1 source) Other chronic pain; Translations: [Chronic midline low back pain without sciatica] Onset: 10-31-2022 Chronic Other non-traumatic joint disorders (1 source) Arthropathy, unspecified; Translations: [Arthritis, multiple joint involvement] Onset: 02-28-2023 Chronic Other nutritional; endocrine; and metabolic disorders (20 sources) Obese class II; Translations: [Obesity, unspecified] Onset: 06-17-2018 06-17-2018 Chronic Other nutritional; endocrine; and metabolic disorders (4 sources) Body mass index 40+ - severely obese; Translations: [Body mass index (BMI) 40.0-44.9, adult] Onset: 11-01-2022 11-01-2022 Chronic Other nutritional; endocrine; and metabolic disorders (1 source) Body mass index (BMI) 40.0-44.9, adult; Translations: [Body mass index (BMI) 40.0-44.9, adult ([facility])] Onset: 11-01-2022 Chronic Other skin disorders (1 source) Other skin changes; Translations: [Vesicle of skin] Onset: 12-13-2023 Episodic Other upper respiratory disease (20 sources) Allergic rhinitis; Translations: [Allergic rhinitis, unspecified] Onset: 10-23-2007 06-30-2020 Chronic Elizabeth-; endo-; and myocarditis; cardiomyopathy (except that caused by tuberculosis or sexually transmitted disease) (8 sources) Hypertrophic cardiomyopathy; Translations: [Other hypertrophic cardiomyopathy] Onset: 06-29-2022 06-29-2022 Chronic Spondylosis; intervertebral disc disorders; other back problems (20 sources) Intervertebral disc disorder of cervical region with myelopathy; Translations: [Cervical disc disorder with myelopathy, unspecified cervical region] Onset: 10-09-2014 10-09-2014 Chronic Spondylosis; intervertebral disc disorders; other back problems (20 sources) Cervical radiculopathy; Translations: [Radiculopathy, cervical region] Onset: 12-02-2013 12-02-2013 Episodic Unclassified (2 sources) Endometrial Cancer; Translations: [Endometrial Cancer] Onset: 02-20-2023 Unclassified (1 source) Chronic midline low back pain without sciatica; Translations: [Chronic midline low back pain without sciatica] Onset: 10-31-2022 Past or Other Problems Problem Classification Problem Date Documented Da te Episodic/Chronic Biliary tract disease (20 sources) Gallstone; Translations: [Calculus of gallbladder without cholecystitis without obstruction] Onset: 05-27-2009 05-27-2009 Episodic Cancer of uterus (20 sources) History of malignant neoplasm of endometrium; Translations: [Personal history of malignant neoplasm of other parts of uterus] Onset: 04-23-2020 04-23-2020 Episodic Diabetes mellitus without complication (20 sources) Impaired fasting glycemia; Translations: [Impaired fasting glucose] Onset: 01-21-2021 01-21-2021 Episodic Mycoses (20 sources) Onychomycosis due to dermatophyte ; Translations: [Tinea unguium] Onset: 07-06-2009 07-06-2009 Episodic Nutritional deficiencies (14 sources) Cobalamin deficiency; Translations: [Deficiency of other specified B group vitamins] Onset: 10-26-2021 Episodic Other bone disease and musculoskeletal deformities (1 source) Other specified disorders of bone density and structure, unspecified site; Translations: [Osteopenia, senile] Onset: 11-01-2022 Episodic Other gastrointestinal disorders (20 sources) Constipation; Translations: [Constipation, unspecified] Onset: 11-12-2009 11-12-2009 Episodic Other lower respiratory disease (20 sources) Dyspnea; Translations: [Shortness of breath] Onset: 10-18-2018 10-18-2018 Episodic Other nervous system disorders (20 sources) Skin sensation disturbance; Translations: [Unspecified disturbances of skin sensation] Onset: 10-09-2014 10-09-2014 Episodic Other non-traumatic joint disorders (11 sources) Shoulder joint pain; Translations: [Pain in unspecified shoulder] Onset: 10-09-2014 10-09-2014 Episodic Other non-traumatic joint disorders (20 sources) Pain in right knee; Translations: [Pain in joint, lower leg] Onset: 10-20-2020 10-20-2020 Episodic Other screening for suspected conditions (not mental disorders or infectious disease) (8 sources) Patient encounter status; Translations: [Encounter for screening mammogram for malignant neoplasm of breast] Onset: 11-01-2022 Episodic Skin and subcutaneous tissue infections (20 sources) Pustule ; Translations: [Local infection of the skin and subcutaneous tissue, unspecified] Onset: 06-17-2018 06-17-2018 Episodic Sprains and strains (20 sources) Neck sprain; Translations: [Sprain of joints and ligaments of unspecified parts of neck, initial encounter] Onset: 03-14-2011 03-14-2011 Episodic Results Test Name Value Interpretation Reference Range Facil ity Vital Signs Date Time Vital Sign Value Performing Clinician Facility 02-20-2023 11:30-0500 Body height 152.4 cm Magi Yuri [employer] Work Phone: [email or web address] 02-20-2023 11:30-0500 Body mass index (BMI) [Ratio] 39.45 kg/m2 Magi Villa FINISHING POWDER PRESS OPERATOR [employer] Work Phone: [email or web address] 02-20-2023 11:30-0500 Body weight 91.63 kg Magi Villa FINISHING POWDER PRESS OPERATOR [employer] Work Phone: [email or web address] 02-20-2023 11:30-0500 Diastolic blood pressure 83 mm[Hg] Magi Villa FINISHING POWDER PRESS OPERATOR [employer] Work Phone: [email or web address] 02-20-2023 11:30-0500 Heart rate 70 /min Magi Yuri FINISHING POWDER PRESS OPERATOR - [employer]STATE SALES MANAGER Work Phone: [facility] 02-20-2023 11:30-0500 Systolic blood pressure 135 mm[Hg] Magi Bondod FINISHING POWDER PRESS OPERATOR - REAL ESTATE SALES MANAGER Work Phone: [facility] 02-27-2022 10:43-0500 Body temperature 97.7 [degF] Addi Trivedi DO Work Phone: [facility] 02-27-2022 10:43-0500 Body weight 90.27 kg Addi Trivedi DO Work Phone: [facility] 02-27-2022 10:43-0500 Diastolic blood pressure 80 mm[Hg] Addi Trivedi DO Work Phone: [facility] 02-27-2022 10:43-0500 Heart rate 80 /min Addi Trivedi DO Work Phone: [facility] 02-27-2022 10:43-0500 Respiratory rate 16 /min Addi Trivedi DO Work Phone: [facility] 02-27-2022 10:43-0500 Systolic blood pressure 132 mm[Hg] Addi Trivedi DO Work Phone: [facility] 01-17-2022 11:27-0400 Body temperature 99.19 [degF] Basilio Leslie FINISHING POWDER PRESS OPERATOR.REAL ESTATE SALES MANAGER Work Phone: [facility] 01-17-2022 11:27-0400 Body weight 91.63 kg Basilio Leslie FINISHING POWDER PRESS OPERATOR.REAL ESTATE SALES MANAGER Work Phone: [facility] 01-17-2022 11:27-0400 Diastolic blood pressure 80 mm[Hg] Basilio Anuj FINISHING POWDER PRESS OPERATOR.REAL ESTATE SALES MANAGER Work Phone: [facility] 01-17-2022 11:27-0400 Heart rate 78 /min Basilio Anuj FINISHING POWDER PRESS OPERATOR.REAL ESTATE SALES MANAGER Work Phone: [facility] 01-17-2022 11:27-0400 Respiratory rate 16 /min Basilio Anuj FINISHING POWDER PRESS OPERATOR.REAL ESTATE SALES MANAGER Work Phone: [facility] 01-17-2022 11:27-0400 SaO2% (BldA) [Mass fraction] 95 % Basilio Leslie APRN.REAL ESTATE SALES MANAGER Work Phone: [facility] 01-17-2022 11:27-0400 Systolic blood pressure 122 mm[Hg] Basilio Leslie APRN.REAL ESTATE SALES MANAGER Work Phone: [facility] 12-27-2021 11:07-0400 Diastolic Blood Pressure NBP [address] ADELAIDA RON MD [facility] 12-27-2021 11:07-0400 Heart rate 82 /min DR ADELAIDA RON MD [facility] 12-27-2021 11:07-0400 Systolic Blood Pressure NBP [address] ADELAIDA RON MD [facility] 12-27-2021 10:41-0400 Diastolic Blood Pressure NBP [address] ADELAIDA RON MD [facility] 12-27-2021 10:41-0400 Heart rate 77 /min DR ADELAIDA RON MD [facility] 12-27-2021 10:41-0400 Respiratory rate 18 /min DR ADELAIDA RON MD [facility] 12-27-2021 10:41-0400 Systolic Blood Pressure NBP [address] ADELAIDA RON MD [facility] 12-27-2021 10:33-0400 Diastolic Blood Pressure NBP [address] ADELAIDA RON MD [facility] 12-27-2021 10:33-0400 Heart rate 78 /min DR ADELAIDA RON MD [facility] 12-27-2021 10:33-0400 Respiratory rate 15 /min DR ADELAIDA RON MD [facility] 12-27-2021 10:33-0400 Systolic Blood Pressure NBP [address] ADELAIDA RON MD [facility] 12-27-2021 10:23-0400 Respiratory rate 19 /min DR ADELAIDA RON MD [facility] 12-27-2021 09:55-0400 Body temperature 96.26 [degF] DR ADELAIDA RON MD [facility] 12-27-2021 07:10-0400 Body height 152.[address] ADELAIDA RON MD [facility] 12-27-2021 07:10-0400 Body temperature 98.96 [degF] DR ADELAIDA RON MD [facility] 12-27-2021 07:10-0400 Body weight [address] ADELAIDA RON MD [facility] 12-27-2021 07:10-0400 Heart rate 79 /min DR ADELAIDA RON MD [facility] 12-16-2021 08:13-0400 Body height 152.[address] ADELAIDA RON MD [facility] 12-16-2021 08:13-0400 Body weight [address] ADELAIDA RON MD [facility] 12-16-2021 08:13-0400 Body weight 38.75 kg/m2 DR ADELAIDA RON MD [facility] 12-16-2021 08:13-0400 diastolic 80 mm[Hg] DR ADELAIDA RON MD [facility] 12-16-2021 08:13-0400 Heart rate 74 /min DR ADELAIDA RON MD [facility] 12-16-2021 08:13-0400 Respiratory rate 20 /min DR ADELAIDA RON MD [facility] 12-16-2021 08:13-0400 systolic 148 mm[Hg] DR ADELAIDA RON MD [facility] 10-26-2021 15:12-0400 Body temperature 97.81 [degF] Addi Trivedi DO Work Phone: [facility] 10-26-2021 15:12-0400 Body weight 90.27 kg Addi Trivedi DO Work Phone: [facility] 10-26-2021 15:12-0400 Diastolic blood pressure 84 mm[Hg] Addi Trivedi DO Work Phone: [facility] 10-26-2021 15:12-0400 Heart rate 76 /min Addi Trivedi DO Work Phone: [facility] 10-26-2021 15:12-0400 Respiratory rate 16 /min Addi Trivedi DO Work Phone: [facility] 10-26-2021 15:12-0400 Systolic blood pressure 130 mm[Hg] Addi Trivedi DO Work Phone: [facility] 07-26-2021 10:07-0400 Body temperature 96.8 [degF] Addi Trivedi DO Work Phone: [facility] 07-26-2021 10:07-0400 Body weight 90.27 kg Addi Trivedi DO Work Phone: [facility] 07-26-2021 10:07-0400 Diastolic blood pressure 90 mm[Hg] Addi Trivedi DO Work Phone: [facility] 07-26-2021 10:07-0400 Heart rate 68 /min Addi Trivedi DO Work Phone: [facility] 07-26-2021 10:07-0400 Respiratory rate 20 /min Addi Trivedi DO Work Phone: [facility] 07-26-2021 10:07-0400 Systolic blood pressure 150 mm[Hg] Addi Trivedi DO Work Phone: [facility] 01-18-2021 17:25-0400 Diastolic Blood Pressure NBP [address] ADELAIDA RON MD [facility] 01-18-2021 17:25-0400 Heart rate 78 /min DR ADELAIDA RON MD [facility] 01-18-2021 17:25-0400 Respiratory rate 18 /min DR ADELAIDA RON MD [facility] 01-18-2021 17:25-0400 Systolic Blood Pressure NBP [address] ADELAIDA RON MD [facility] 01-18-2021 16:30-0400 Diastolic Blood Pressure NBP [address] ADELAIDA RON MD [facility] 01-18-2021 16:30-0400 Heart rate 70 /min DR ADELAIDA RON MD [facility] 01-18-2021 16:30-0400 Respiratory rate 18 /min DR ADELAIDA RON MD [facility] 01-18-2021 16:30-0400 Systolic Blood Pressure NBP [address] ADELAIDA RON MD [facility] 01-18-2021 15:20-0400 Diastolic Blood Pressure NBP [address] ADELAIDA RON MD [facility] 01-18-2021 15:20-0400 Heart rate 62 /min DR ADELAIDA RON MD [facility] 01-18-2021 15:20-0400 Respiratory rate 16 /min DR ADELAIDA RON MD [facility] 01-18-2021 15:20-0400 Systolic Blood Pressure NBP [address] ADELAIDA RON MD [facility] 01-18-2021 14:59-0400 Heart rate 76 /min DR ADELAIDA RON MD [facility] 01-18-2021 14:44-0400 Heart rate 78 /min DR ADELAIDA RON MD [facility] 01-18-2021 14:29-0400 Body temperature 96.44 [degF] DR ADELAIDA RON MD [facility] 01-18-2021 13:45-0400 Body temperature 96.8 [degF] DR ADELAIDA RON MD [facility] 01-18-2021 11:53-0400 Heart rate 71 /min DR ADELAIDA RON MD [facility] 01-18-2021 11:09-0400 Body height 152.[address] ADELAIDA RON MD [facility] 01-18-2021 11:09-0400 Body temperature 98.42 [degF] DR ADELAIDA RON MD [facility] 01-18-2021 11:09-0400 Body weight 88.[address] ADELAIDA RON MD [facility] 01-18-2021 11:09-0400 Heart rate 76 /min DR ADELAIDA RON MD [facility] 01-07-2021 12:51-0400 Body height 152.[address] ADELAIDA RON MD [facility] 01-07-2021 12:51-0400 Body weight 90.[address] ADELAIDA RON MD [facility] 01-07-2021 12:51-0400 Body weight 38.97 kg/m2 DR ADELAIDA RON MD [facility] 01-07-2021 12:51-0400 diastolic 88 mm[Hg] DR ADELAIDA RON MD [facility] 01-07-2021 12:51-0400 Heart rate 78 /min DR ADELAIDA RON MD [facility] 01-07-2021 12:51-0400 Respiratory rate 20 /min DR ADELAIDA RON MD [facility] 01-07-2021 12:51-0400 systolic 154 mm[Hg] DR ADELAIDA RON MD [facility] Encounters Encounter Date Encounter Type Care Provider Facility Start: 02-26-2023 End: 02-27-2023 ambulatory ADDI TRIVEDI Facility:[facility] Start: 02-20-2023 End: 02-20-2023 ambulatory MAGI VILLA [facility] Start: 02-20-2023 End: 02-20-2023 Office outpatient visit 25 minutes Magi Villa FINISHING POWDER PRESS OPERATOR - [employer] SALES MANAGER Work Phone: [facility] Gynecologic Oncology Procedures Date Procedure Procedure Detail Performing Clinician Start: 11-07-2022 Dxa bone density study 1/> sites axial skel Addi Trivedi DO Work Phone: Start: 08-01-2022 Follow-up visit Follow-up MAGI VILLA Start: 06-29-2022 Lipid 1996 panel - Serum or Plasma Bone Wstr Work Phone: Start: 02-27-2022 INFLUENZA SEASONAL QUADRIVALENT HIGH DOSE AGE 65+ Addi Jerryrison DO Work Phone: Start: 01-17-2022 Radiologic exam chest 2 views Basilio Leslie APRN.RE[employer] ESTATE SALES MANAGER Work Phone: Start: 10-19-2021 Adult depression screening assessment Addi Trivedi DO Work Phone: Start: 04-19-2021 Mammography Addi Trivedi DO Work Phone: Start: 01-21-2021 History of operative procedure on knee Status post left partial knee replacement Addi Trivedi DO Work Phone: Start: 10-15-2020 Adult depression screening assessment Addi Trivedi DO Work Phone: Start: 09-21-2020 Colonoscopy Addi Trivedi DO Work Phone: Cholecystectomy DR ADELAIDA HAN MD Colonoscopy DR ADELAIDA Sheikh MD Decompression of med diego nerve DR ADELAIDA RON MD Plan of Treatment Date Care Activity Detail Author Start: 06-30-2027 Lipid 1996 panel - Serum or Plasma Lipid Screening [facility] Start: 06-30-2027 LIPID SCREEN LIPID SCREEN [facility] Start: 02-21-2026 DTaP/Tdap/Td Vaccines (3 - Td or Tdap) DTaP/Tdap/Td Vaccines (3 - Td or Tdap) [facility] Start: 02-21-2026 Urine microalbumin profile [facility] Start: 09-21-2025 Colonoscopy COLONOSCOPY [facility] Start: 09-21-2025 COLORECTAL CANCER SCREENING COLORECTAL CANCER SCREENING [facility] Start: 06-29-2025 Diabetes mellitus screening Diabetes Screening [facility] Start: 06-29-2025 DIABETES SCREEN DIABETES SCREEN [facility] Start: 06-29-2025 Diabetes Screening Diabetes Screening [facility] Start: 05-03-2025 LIPID SCREEN LIPID SCREEN [facility] Start: 11-01-2023 ANNUAL PCP TEAM CHRONIC DISEASE VISIT ANNUAL PCP TEAM CHRONIC DISEASE VISIT [facility] Start: 08-24-2023 End: 08-24-2023 Patient encounter procedure 08/24/2023 11:30 AM EDT Office Visit [facility] Gynecologic Oncology [address] [place] [address] Magi Villa APRN - CNP [address] [place], [place] [id number] [facility] Gynecologic Oncology Start: 06-29-2023 ANNUAL PCP TEAM CHRONIC DISEASE VISIT ANNUAL PCP TEAM CHRONIC DISEASE VISIT [facility] Start: 06-29-2023 BP CONTROLLED (<130/80) BP CONTROLLED (<130/80) [facility] Start: 05-03-2023 DIABETES SCREEN DIABETES SCREEN [facility] Start: 02-27-2023 ANNUAL PCP TEAM CHRONIC DISEASE VISIT ANNUAL PCP TEAM CHRONIC DISEASE VISIT [facility] Start: 11-17-2022 Covid-19 Vaccine ( season) Covid-19 Vaccine ( season) [facility] Start: 11-17-2022 Influenza vaccination [facility] Start: 10-26-2022 ANNUAL PCP TEAM CHRONIC DISEASE VISIT ANNUAL PCP TEAM CHRONIC DISEASE VISIT [facility] Start: 10-19-2022 Adult depression screening assessment DEPRESSION SCREENING [facility] Start: 07-26-2022 ANNUAL PCP TEAM CHRONIC DISEASE VISIT ANNUAL PCP TEAM CHRONIC DISEASE VISIT [facility] Start: 04-26-2022 BP CONTROLLED (<130/80) BP CONTROLLED (<130/80) [facility] Start: 04-25-2022 ANNUAL PCP TEAM CHRONIC DISEASE VISIT ANNUAL PCP TEAM CHRONIC DISEASE VISIT [facility] Start: 04-19-2022 Mammography MAMMOGRAM [facility] Start: 02-27-2022 End: 04-29-2022 CBC W Auto Differential panel - Blood CBC + DIFF Lab Routine Hyperlipidemia, mixed Expected: 02/27/2022, Expires: 04/29/2022 [facility] Work Phone: Immunizations Immunization Date Immunization Notes Care Provider Ceasar khan 01-23-2023 influenza, high dose seasonal, preservative-free Addi Trivedi DO Work Phone: [facility] 01-23-2023 respiratory syncytia l virus (RSV) vaccine, adjuvanted (AREXVY) Addi Trivedi DO Work Phone: [facility] 10-31-2022 pneumococcal (PCV20) vaccine, 20 valent (PREVNAR 20) Addi Trivedi DO Work Phone: [facility] Work Phone: 02-27-2022 influenza, high-dose , quadrivalent vaccine (FLUZONE HIGH DOSE QUADRIVALENT) Addi Trivedi DO Work Phone: [facility] Work Phone: 02-27-2022 influenza virus vacc ine, unspecified formulation Bone Wstr Work Phone: [facility] 04-28-2021 zoster vaccine recombinant Addi Trivedi DO Work Phone: [facility] 03-13-2021 COVID-19 vaccine, booster dose (MODERNA) Adid Trivedi DO Work Phone: [facility] 12-29-2020 influenza, high-dose , quadrivalent vaccine (FLUZONE HIGH DOSE QUADRIVALENT) Addi Trivedi DO Work Phone: [facility] 06-30-2020 zoster vaccine recombinant Addi Trivedi DO Work Phone: [facility] 06-14-2020 COVID-19 vaccine, fu ll dose (MODERNA) Addi Trivedi DO Work Phone: [facility] 05-17-2020 COVID-19 vaccine, fu ll dose (MODERNA) Addi Trivedi DO Work Phone: [facility] 12-03-2019 influenza, injectabl e, quadrivalent, preservative free Addi Trivedi DO Work Phone: [facility] 12-23-2018 influenza, high dose seasonal, preservative-free Addi Trivedi DO Work Phone: [facility] 12-17-2017 influenza, high dose seasonal, preservative-free Addi Trivedi DO Work Phone: [facility] Work Phone: 12-21-2016 influenza, high dose seasonal, preservative-free Addi Trivedi DO Work Phone: [facility] 02-22-2016 tetanus toxoid, redu yolanda diphtheria toxoid, and acellular pertussis vaccine, adsorbed Addi Trivedi DO Work Phone: [facility] 11-30-2015 influenza, high dose seasonal, preservative-free Addi Trivedi DO Work Phone: [facility] Work Phone: 01-20-2015 influenza, high dose seasonal, preservative-free Addi Trivedi DO Work Phone: [facility] Work Phone: 01-20-2015 pneumococcal conjuga te vaccine, 13 valent Addi Trivedi DO Work Phone: [facility] Work Phone: 03-02-2014 zoster vaccine, live Addi Trivedi DO Work Phone: [facility] Work Phone: 12-02-2013 influenza, high dose seasonal, preservative-free Addi Trivedi DO Work Phone: [facility] 10-25-2012 pneumococcal polysaccharide vaccine, 23 valent Addi Trivedi DO Work Phone: [facility] Work Phone: 12-27-2011 influenza virus vacc ine, unspecified formulation Addi Trivedi DO Work Phone: [facility] Work Phone: 02-03-2011 influenza virus vacc ine, unspecified formulation Addi Trivedi DO Work Phone: [facility] Work Phone: 05-12-2005 tetanus toxoid, redu yolanda diphtheria toxoid, and acellular pertussis vaccine, adsorbed Addi Trivedi DO Work Phone: [facility] Work Phone: 02-23-2005 influenza virus vacc ine, whole virus Addi Trivedi DO Work Phone: [facility] Work Phone: Payers Date Payer Category Payer Medicare [employer]M MEDICARE ADVANTAGE [facility] MEDICARE ADVANTAGE [id number] 2021-Present [address] [place] [address] Medicare HMO [id number] 2021 Unknown 2021 Unknown [id number] 2015 Unknown [id number] 1947 Unknown [id number] 1947 Unknown [id number] 1947 Unknown [id number] 1947 Unknown [id number] 1947 Unknown [id number] 1947 Unknown [id number] 1947 Unknown [id number] Social History Date Type Detail Facility Start: 01-07-2021 Never smoked tobacco (finding) [facility] Start: 1945 Sex Assigned At Female [facility] Start: 04-25-2021 End: 02-20-2023 Alcohol intake Current non-drinker of alcohol (finding) [facility] Start: 01-27-2020 End: 02-21-2022 History SDOH Alcohol Frequency 2 [facility] Start: 04-21-2019 End: 02-21-2022 History SDOH Alcohol Std Drinks 1 [facility] Start: 01-27-2020 End: 02-21-2022 History SDOH Social Connections Phone 5 [facility] Start: 04-21-2019 End: 02-21-2022 History SDOH Social Connections Living 3 [facility] Start: 04-21-2019 End: 02-21-2022 History SDOH Physical Activity DPW 0 [facility] Start: 01-27-2020 Education 12 [facility] Start: 1945 Sex Assigned At Not on file [facility] Start: 07-16-2021 End: 01-17-2022 Exposure to SARS-CoV-2 (event) Not sure [facility] Work Phone: Start: 02-21-2022 History SDOH Social Connections Get Together 4 [facility] Start: 02-21-2022 History SDOH Social Connections Restorationism 98 [facility] Start: 02-20-2022 End: 03-07-2022 History of Social function [facility] Start: 02-20-2022 End: 03-07-2022 Social connection and isolation panel [facility] How often do you att end baptist or druze services? Patient refused [facility] Do you belong to any clubs or organizations such as baptist groups, unions, fraternal or athletic groups, or school groups? No [facility] Are you now , , , , never or living with a partner? [facility] How often to you hav e a drink containing alcohol? Never [facility] Do you feel stress - tense, restless, nervous, or anxious, or unable to sleep at night because your mind is troubled all the time - these days [OSQ] Only a little [facility] (I/We) worried wheth er (my/our) food would run out before (I/we) got money to buy more. Never true [facility] Start: 10-19-2021 Gender identity Identifies as female gender (finding) [facility] Start: 10-19-2021 Sexual orientation Heterosexual (finding) [facility] Functional Status Date Assessment Result Facility 12-27-2021 Functional Status Mod I [facility] 12-27-2021 Functional Status ice on [facility] 12-27-2021 Functional Status Maintained, More than 8 hours [facility] 12-16-2021 Functional Status Sensory Deficits None A [facility] Mental Status Date Assessment Result Facility 12-27-2021 Mental Status Orientation Oriented x 4 [facility] 12-27-2021 Mental Status [facility] 12-27-2021 Mental Status [facility] Clinical Notes 10-20-2020 to 02-26-2023 MARGARITA Calhoun CNP - 02/20/2023 11:30 AM ESTTelephone Encounter - Bettina Lobo - 01/22/2023 4:29 PM ESTTelephone Encounter - Jennifer Venegas APRN.CNP - 01/22/2023 1:31 PM EST Note Date & Type Note Facility 02-26-2023 Note HNO ID: [id number] Author: Addi Trivedi, DO Service: ? Author Type: Physician Type: Progress Notes Filed: 02/28/2023 8:26 AM Note Text: lindy [facility] 02-26-2023 Note HNO ID: [id number] Author: Addi Trivedi, DO Service: ? Author Type: Physician Type: Progress Notes Filed: 02/28/2023 8:26 AM Note Text: CC: Mikayla Gorman is a 77 year old female who presents to the office for follow up HPI: Seen in office on 10/31/22 Right knee pain, started in August/September. Hx of right total knee replacement surgery 12/27/[address] [facility]. Was seen by Dr. Ron in September and told to restart PHYSICAL THERAPY. Worse with prolonged walking. Was told by DR. Ron that it is likely due to inflammation in soft tissue. Has been taking NSAID intermittently, no use of any topical medication right now. Hx of endometrial cancer, now she is 5 years from diagnosis and treatment. 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 No recent xrays, no bowel or bladder changes that are new. Worse right leg than left leg Last BMD was 2 years ago Currently Blisters on her right inner buttock, started a couple days ago, no fevers or chills. No known hx of shingles or herpes. Hx of endometrial cancer, now she is 5 years from diagnosis and treatment. 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 Not interested in pelvic floor therapy. Chronic low back pain, use of gabapentin as prescribed. Arthritis multiple joints, use of cymbalta and celebrex as needed. Mood, use of prn ativan and cymbalta, stable depression and anxiety symptoms, has good support BLOOD PRESSURE is well controlled, no CP or dyspnea or dizziness/Lh or edema. PAST MEDICAL HISTORY Diagnosis Date Abnormal glandular Papanicolaou smear of cervix Abn. Pap smear (cervix) Allergic rhinitis Arthritis Bilateral primary osteoarthritis of knee by Kory Espinoza on 10/04, 10/11, 10/18/2020 Chronic pain nerve related, neck, chronic Delayed emergence from general anesthesia Endometrial ca (HCC) 10/2017 Hypertension Mild concentric left ventricular hypertrophy (LVH) 10/2018 Mild left ventricular hypertrophy 10/2018 Rosacea PAST SURGICAL HISTORY Procedure Laterality Date ABDOMINAL SURGERY HX BIOPSY BREAST OPEN INCISIONAL Bx of breast, incisional, right, benign BREAST SURGERY HX COLONOSCOPY FLX DX W/COLLJ SPEC WHEN PFRMD 09/21/2020 COLPOSCOPY CERVIX UPPER/ADJACENT VAGINA Colposcopy DILATION AND CURETTAGE DXAND/THER NONOBSTETRIC 12/24/2017 Dilation AND curettage EYE SURGERY HX HYSTERECTOMY HX 2018 w/ bilateral BSO LAPS SURG CHOLECYSTECTOMY W/CHOLANGIOGRAPHY 06/03/2009 Normal IOC NEUROPLASTY AND/TRANSPOS MEDIAN NRV CARPAL TUNNE Carpal tunnel decomp, right REDUCTION OF LARGE BREAST Breast reduction TONSILLECTOMY HX VAGINAL HYSTERECTOMY Current Outpatient Medications Medication Sig amLODIPine (NORVASC) 5 mg tablet Take 1 tablet by mouth once daily. DULoxetine (CYMBALTA) 60 mg capsule Take 1 capsule by mouth once daily. TAKE ONE CAPSULE BY MOUTH EVERY DAY FOR pinched nerve fluticasone (FLONASE) 50 mcg/actuation nasal spray Use 2 Sprays in each nostril once daily. Rinse mouth after use. celecoxib (CELEBREX) 200 mg capsule Take 1 capsule by mouth twice daily. gabapentin (NEURONTIN) 300 mg capsule Take 1-2 capsules by mouth daily at bedtime for 115 days. For pinched nerve metoprolol tartrate, short acting, (LOPRESSOR) 50 mg tablet Take 50 mg by mouth twice daily. multivit-minerals/folic/ginkgo (ONE DAILY WOMEN 50 PLUS ORAL) Take by mouth. vitamin B complex (B COMPLEX 1 ORAL) Take by mouth. vit A/vit C/vit E/zinc/copper (OCUVITE PRESERVISION ORAL) Take by mouth twice daily. Zinc 50 mg tab Take by mouth. glycopyrrolate (ROBINUL) 1 mg tablet Take 1 tablet by mouth twice daily. As needed for sweating Magnesium 30 mg tablet Take 30 mg by mouth twice daily. cholecalciferol (VITAMIN D3) 2,000 unit tablet Take 1 tablet by mouth once daily. losartan (COZAAR) 100 mg tablet Take 1 tablet by mouth once daily. amitriptyline (ELAVIL) 25 mg tablet Take 1 tablet by mouth daily at bedtime. montelukast (SINGULAIR) 10 mg tablet Take 1 tablet by mouth once daily. LORazepam (ATIVAN) 0.5 mg Take 1 tablet by mouth three times a day as needed for up to 30 days. valACYclovir (VALTREX) 1 gram tablet Take 1 tablet by mouth three times a day for 7 days. diclofenac (VOLTAREN ARTHRITIS PAIN) 1 % topical gel Apply 2 g to affected area twice daily. Right knee pain furosemide (LASIX) 20 mg tablet Take 1 tablet by mouth twice daily. As needed for leg swelling No current facility-administered medications for this visit. ALLERGIES Allergen Reactions Aleve [Naproxen Sod* Hives Grass Pollen Social History Tobacco Use Smoking status: Never Smokeless tobacco: Never Substance Use Topics Alcohol use: No Drug use: No ROS: See HPI PE: BP 116/80 Pulse 76 Temp (Src) 97 (Right Tympanic) Resp 20 Wt 203 lb (92.1kg) Ge (more content not included)... [facility] 02-20-2023 History of Presen t illness Narrative Images from the original note were not included. 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 She was treated with robotic hysterectomy with bilateral salpingo-oophorectomy along with pelvic and para-aortic lymph node dissection followed by combined chemoradiotherapy using the sandwhich technique. She underwent 3 cycles of carboplatinum and Taxol in March and April. She then underwent 4500 cGy of whole pelvic radiation therapy, which ended on 05/10/2018 and reinitiating chemotherapy in May 2018.. She received her last dose in on 07/19/2018. Computed tomography scan of the chest in July 2018 was negative. Computed tomography scan of the abdomen and pelvis shows a decrease in the seroma involving the left common iliac artery. No other evidence of disease was noted. She underwent a PET scan in October which did show some increased FDG concentration in the mid to lower pelvic mesentery. She had a repeat computed tomography scan in December 2018 which was read as no evidence of disease. Patient was recently seen by radiation oncology and the following is an update of her imaging status. Patient was seen by radiation oncology in May of this year. No evidence of recurrent disease was noted. CA 125 Nov 2 was 9. Interval History: Patient is now 5 years status post diagnosis. She denies any new abdominal pain, pelvic pain, vaginal bleeding, adenopathy, no bowel or bladder problems. Recently had knee replacement which is healing up nicely. Has no new signs or symptoms of recurrent disease. Has urinary urge incontinence- Went to a pelvic floor therapy. Offered referral to [facility], not interested at this time. Encouraged to use dilator 2-3 times/week. Having vaginal dryness that is preventing her from having intercourse. Discussed several different lubricants. Gave information to a sex therapist for more information. CA-125 has remained normal- Dr Villalba is Oncologist in [place] who orders and monitors this. Past Medical History: Diagnosis Date Anxiety Arthritis neck hands knees Endometrial adenocarcinoma (CMS/HCC) (HCC) FIGO GRADE 3 Hypertension Social History Socioeconomic History Marital status: Tobacco Use Smoking status: Never Smokeless tobacco: Never Substance and Sexual Activity Alcohol use: No Drug use: No Past Surgical History: Procedure Laterality Date BREAST SURGERY CARPAL TUNNEL RELEASE CHOLECYSTECTOMY COLONOSCOPY ENDOMETRIAL BIOPSY EYE SURGERY Bilateral cataracts HYSTERECTOMY 01/03/2018 Robotic TLH/BSO/pelvic and para-aortic LND DR. THIAGO [facility] HYSTEROSCOPY D&C, ENDOMETRIAL POLYPECTOMY TONSILLECTOMY AND ADENOIDECTOMY (HISTORICAL) Review of Systems Gastrointestinal: Negative for abdominal distention and abdominal pain. Genitourinary: Negative for pelvic pain and vaginal bleeding. Hematological: Negative for adenopathy. Naproxen and Grass pollen(k-o-r-t-swt abbie) Current Outpatient Medications Medication Sig Dispense Refill amitriptyline (Elavil) 25 MG tablet Take 1 tablet by mouth Nightly. amLODIPine (Norvasc) 5 MG tablet Take 5 mg by mouth. celecoxib (CeleBREX) 200 MG capsule Take 200 mg by mouth in the morning and 200 mg in the evening. cholecalciferol (Vitamin D-3) 25 MCG (1000 UT) capsule Take by mouth. DULoxetine (Cymbalta) [address] capsule TAKE ONE CAPSULE BY MOUTH EVERY DAY FOR pinched nerve fluticasone (Flonase) 50 MCG/ACT nasal spray Use 2 Sprays in each nostril once daily. Rinse mouth after use. gabapentin (Neurontin) 300 MG capsule Take 1-2 capsules by mouth daily at bedtime for 115 days. For pinched nerve LORazepam (Ativan) 0.5 MG tablet Take 1 tablet by mouth three times daily as needed for up to 30 days. losartan (Cozaar) 100 MG tablet Take 100 mg by mouth in the morning. magnesium 250 MG tablet Take 250 mg by mouth in the morning. metoprolol succinate XL (Toprol-XL) 50 MG 24 hr tablet Take 50 mg by mouth in the morning. montelukast (Singulair) 10 MG tablet Take 10 mg by mouth in the morning. No current facility-administered medications for this visit. BP 135/83 Pulse 70 Ht 1.524 m (5') Wt 91.6 kg (202 lb) BMI 39.45 kg/m Physical Exam Vitals and nursing note reviewed. Exam conducted with a commercial portfolio manager present. Constitutional: Appearance: She is obese. Abdominal: General: Abdomen is flat. Comments: Well-healed robotic incisions without nodules Genitourinary: General: Normal vulva. Comments: Uterus/tubes/ovaries are absent Vagina: well healed cuff. No masses BME: no masses Bladder: no masses Urethra: midline and mobile Lymphadenopathy: Upper Body: Right upper body: No supraclavicular adenopathy. Left upper body: No supraclavicular adenopathy. Lower Body: No right inguinal adenopathy. No left inguinal adenopathy. Skin: General: Skin is warm and dry. Neurological: Mental Status: She is alert. Psychiatric: Mood and Affect: Mood normal. Behavior: Behavior normal. Assessment: No evidence of recurrent disease on exam The signs and symptoms of recurrence were reviewed and the patient will contact our office in the interim should any of these arise. - discussed several different lubricants for vaginal dryness. Encouraged to call office with any questions or concerns. The patient had an opportunity to ask questions, all of which were answered to the best of my ability. She is in agreement with the above noted plan. Plan: Follow-up every 6 months until 5 years out then annually. To follow-up with our nurse practitioners in 6 months total visit time was 15 minutes documented in this encounter [facility] 01-22-2023 Miscellaneous Notes Order faxed Bettina Lobo Order signed. Please fax and let pt know once completed. Thank you, Jennifer Venegas APRN.CNP Order pended, if agreeable, please file. Nursing to fax order to [facility] and inform patient. Alix Mcleod MA documented in this encounter [facility] 11-10-2022 Miscellaneous Notes Pt notified of results via Signpost. Amanda Roque Ma Called and left a detailed voicemail notifying patient of providers message. Hospital phone number was left so patient could call back and answer providers questions. Marilyn Noriega RN Please inform patient that her xrays of her lumbar spine show significant ddd of L4/L5 of her low back as well as arthritis changes. She can consider PHYSICAL THERAPY and pain management if interested in injections Addi Trivedi DO documented in this encounter [facility] 11-07-2022 Note HNO ID: [id number] Author: Celina Doran RT(R) Service: Radiology Author Type: Technologist Type: Progress Notes Filed: 11/07/2022 9:15 AM Note Text: Radiology Service Progress Note PATIENT NAME: Mikayla Gorman DATE OF SERVICE: November 07, 2022 TIME: 9:04 AM PATIENT IDENTITY VERIFICATION COMPLETED USING TWO (2) IDENTIFIERS: Name and Date of confirmed by patient verbally. FALL SCREENING: Has the patient had 2 falls in the last year or 1 fall with injury or currently using an Ambulatory Assistive Device (Walker, Cane, Wheelchair, Crutches, etc.)? No PATIENT GENDER DATA: Female. status: : No status: NO. PATIENT RELEVANT IMPLANT DATA REVIEWED: Not Applicable RADIOLOGY DEPARTMENT: General X-ray: Exam(s) Completed: Spine X-Ray(s): Lumbar AP / LAT / L5-S1 PERIPHERAL IV DATA: Not applicable SIGNED BY: RT Peter(R) November 07, 2022 9:04 AM [facility] 11-07-2022 Note HNO ID: [id number] Author: Antonio Wisdom RT(R) Service: ? Author Type: Technologist Type: Progress Notes Filed: 11/07/2022 9:30 AM Note Text: Radiology Service Progress Note PATIENT NAME: Mikayla Gorman DATE OF SERVICE: November 07, 2022 TIME: 9:15 AM PATIENT IDENTITY VERIFICATION COMPLETED USING TWO (2) IDENTIFIERS: Name and Date of confirmed by patient verbally. FALL SCREENING: Has the patient had 2 falls in the last year or 1 fall with injury or currently using an Ambulatory Assistive Device (Walker, Cane, Wheelchair, Crutches, etc.)? No PATIENT GENDER DATA: Female. status: : No status: NO. PATIENT RELEVANT IMPLANT DATA REVIEWED: Not Applicable RADIOLOGY DEPARTMENT: Bone Density PERIPHERAL IV DATA: Not applicable SIGNED BY: RT Lucy(R) November 07, 2022 9:15 AM [facility] 11-07-2022 History of Presen t illness Narrative Radiology Service Progress Note PATIENT NAME: Mikayla Gorman DATE OF SERVICE: November 07, 2022 TIME: 9:15 AM PATIENT IDENTITY VERIFICATION COMPLETED USING TWO (2) IDENTIFIERS: Name and Date of confirmed by patient verbally. FALL SCREENING: Has the patient had 2 falls in the last year or 1 fall with injury or currently using an Ambulatory Assistive Device (Walker, Cane, Wheelchair, Crutches, etc.)? No PATIENT GENDER DATA: Female. status: : No status: NO. PATIENT RELEVANT IMPLANT DATA REVIEWED: Not Applicable RADIOLOGY DEPARTMENT: Bone Density PERIPHERAL IV DATA: Not applicable SIGNED BY: RT Lucy(R) November 07, 2022 9:15 AM documented in this encounter [facility] 10-31-2022 Note HNO ID: [id number] Author: Addi Trivedi, DO Service: ? Author Type: Physician Type: Progress Notes Filed: 11/01/2022 12:03 PM Note Text: CC: Mikayla Gorman is a 77 year old female who presents to the office to establish care. HPI: Right knee pain, started in . Hx of right total knee replacement surgery 12/27/[address] [facility]. Was seen by Dr. Ron in September and told to restart PHYSICAL THERAPY. Worse with prolonged walking. Was told by DR. Ron that it is likely due to inflammation in soft tissue. Has been taking NSAID intermittently, no use of any topical medication right now. Hx of endometrial cancer, now she is 5 years from diagnosis and treatment. 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 No recent xrays, no bowel or bladder changes that are new. Worse right leg than left leg Last BMD was 2 years ago PAST MEDICAL HISTORY Diagnosis Date Abnormal glandular Papanicolaou smear of cervix Abn. Pap smear (cervix) Allergic rhinitis Arthritis Bilateral primary osteoarthritis of knee by Kory Espinoza on 10/04, 10/11, 10/18/2020 Chronic pain nerve related, neck, chronic Delayed emergence from general anesthesia Endometrial ca (HCC) 10/2017 Hypertension Mild concentric left ventricular hypertrophy (LVH) 10/2018 Mild left ventricular hypertrophy 10/2018 Rosacea PAST SURGICAL HISTORY Procedure Laterality Date ABDOMINAL SURGERY HX BIOPSY BREAST OPEN INCISIONAL Bx of breast, incisional, right, benign BREAST SURGERY HX COLONOSCOPY FLX DX W/COLLJ SPEC WHEN PFRMD 09/21/2020 COLPOSCOPY CERVIX UPPER/ADJACENT VAGINA Colposcopy DILATION AND CURETTAGE DXAND/THER NONOBSTETRIC 12/24/2017 Dilation AND curettage EYE SURGERY HX HYSTERECTOMY HX 2018 w/ bilateral BSO LAPS SURG CHOLECYSTECTOMY W/CHOLANGIOGRAPHY 06/03/2009 Normal IOC NEUROPLASTY AND/TRANSPOS MEDIAN NRV CARPAL TUNNE Carpal tunnel decomp, right REDUCTION OF LARGE BREAST Breast reduction TONSILLECTOMY HX VAGINAL HYSTERECTOMY Social History: Social History Tobacco Use Smoking status: Never Smokeless tobacco: Never Substance Use Topics Alcohol use: No Drug use: No FAMILY HISTORY Problem Relation Age of Onset Diabetes Father Coronary Artery Disease Father Hypertension Mother Breast Cancer Mother left other (Macular Degeneration) Mother Cancer Maternal Grandmother Ovarian Cancer Daughter UTERINE Current Outpatient prescriptions: benzonatate (TESSALON PERLE) 100 mg capsule Take 2 capsules by mouth three times daily as needed. amitriptyline (ELAVIL) 25 mg tablet Take 1 tablet by mouth daily at bedtime. DULoxetine (CYMBALTA) 60 mg capsule Take 1 capsule by mouth once daily. TAKE ONE CAPSULE BY MOUTH EVERY DAY FOR pinched nerve fluticasone (FLONASE) 50 mcg/actuation nasal spray Use 2 Sprays in each nostril once daily. Rinse mouth after use. losartan (COZAAR) 100 mg tablet Take 1 tablet by mouth once daily. furosemide (LASIX) 20 mg tablet Take 1 tablet by mouth twice daily. As needed for leg swelling montelukast (SINGULAIR) 10 mg tablet Take 1 tablet by mouth once daily. amLODIPine (NORVASC) 5 mg tablet Take 1 tablet by mouth once daily. celecoxib (CELEBREX) 200 mg capsule Take 1 capsule by mouth twice daily. gabapentin (NEURONTIN) 300 mg capsule Take 1-2 capsules by mouth daily at bedtime for 115 days. For pinched nerve metoprolol tartrate, short acting, (LOPRESSOR) 50 mg tablet Take 50 mg by mouth twice daily. multivit-minerals/folic/ginkgo (ONE DAILY WOMEN 50 PLUS ORAL) Take by mouth. vitamin B complex (B COMPLEX 1 ORAL) Take by mouth. vit A/vit C/vit E/zinc/copper (OCUVITE PRESERVISION ORAL) Take by mouth twice daily. Zinc 50 mg tab Take by mouth. glycopyrrolate (ROBINUL) 1 mg tablet Take 1 tablet by mouth twice daily. As needed for sweating Magnesium 30 mg tablet Take 30 mg by mouth twice daily. cholecalciferol (VITAMIN D3) 2,000 unit tablet Take 1 tablet by mouth once daily. Allergies: ALLERGIES Allergen Reactions Aleve [Naproxen Sod* Hives Grass Pollen Seasonal [Other] ROS: See HPI PE: 10/31/22 1251 BP: 130/76 Pulse: 76 Resp: 16 Temp: 36.6 ?C (97.9 ?F) TempSrc: Left Tympanic Weight: 91.6 kg (202 lb) Gen: AANDOX3, NAD, non-toxic appearing HEENT: PERRLA, EOMs intact b/l, nares without drainage, pharynx without erythema, exudate, lesions, or drainage. Uvula midline. Neck: No LAD, no thyromegaly, no meningismus. CV: RRR, no murmur Lungs: CTA b/l, no wheezing Skin: No rashes, lesions, or wounds on exposed skin. No edema, normal pulses Post operative changes and mild warmth right anterior knee joint Mild restriction of right hip muscles/tendons and right calf without signs of swelling or redness Reduced ROM lumbar spine, no spinal TTP, + lumbar paraspinal muscle tension prese (more content not included)... [facility] 10-13-2022 Note HNO ID: [id number] Author: Basilio Leslie APRN.[employer] SALES MANAGER Service: ? Author Type: Nurse Practitioner Type: Progress Notes Filed: 10/13/2022 11:31 AM Note Text: Subjective HPI HPI Mikayla Gorman is a 77 year old female who presents today for CC of cough. This started 10 days ago. Has tried otc medication for relief. Symptoms are worsened by nothing. Risk factors hx of copd. Nonsmoker. .Patient presents with: Cough: x 10 days PAST MEDICAL HISTORY Diagnosis Date Abnormal glandular Papanicolaou smear of cervix Abn. Pap smear (cervix) Allergic rhinitis Arthritis Bilateral primary osteoarthritis of knee by Ray Eshenaur on 10/04, 10/11, 10/18/2020 Chronic pain nerve related, neck, chronic Delayed emergence from general anesthesia Endometrial ca (HCC) 10/2017 Hypertension Mild concentric left ventricular hypertrophy (LVH) 10/2018 Mild left ventricular hypertrophy 10/2018 Rosacea PAST SURGICAL HISTORY Procedure Laterality Date ABDOMINAL SURGERY HX BIOPSY BREAST OPEN INCISIONAL Bx of breast, incisional, right, benign BREAST SURGERY HX COLONOSCOPY FLX DX W/COLLJ SPEC WHEN PFRMD 09/21/2020 COLPOSCOPY CERVIX UPPER/ADJACENT VAGINA Colposcopy DILATION AND CURETTAGE DXAND/THER NONOBSTETRIC 12/24/2017 Dilation AND curettage EYE SURGERY HX HYSTERECTOMY HX 2018 w/ bilateral BSO LAPS SURG CHOLECYSTECTOMY W/CHOLANGIOGRAPHY 06/03/2009 Normal [facility] NEUROPLASTY AND/TRANSPOS MEDIAN NRV CARPAL TUNNE Carpal tunnel decomp, right REDUCTION OF LARGE BREAST Breast reduction TONSILLECTOMY HX VAGINAL HYSTERECTOMY ALLERGIES Aleve [Naproxen Sodium], Grass Pollen, and Seasonal [Other] MEDICATIONS amitriptyline (ELAVIL) 25 mg tablet Take 1 tablet by mouth daily at bedtime. DULoxetine (CYMBALTA) 60 mg capsule Take 1 capsule by mouth once daily. TAKE ONE CAPSULE BY MOUTH EVERY DAY FOR pinched nerve fluticasone (FLONASE) 50 mcg/actuation nasal spray Use 2 Sprays in each nostril once daily. Rinse mouth after use. losartan (COZAAR) 100 mg tablet Take 1 tablet by mouth once daily. furosemide (LASIX) 20 mg tablet Take 1 tablet by mouth twice daily. As needed for leg swelling montelukast (SINGULAIR) 10 mg tablet Take 1 tablet by mouth once daily. amLODIPine (NORVASC) 5 mg tablet Take 1 tablet by mouth once daily. celecoxib (CELEBREX) 200 mg capsule Take 1 capsule by mouth twice daily. gabapentin (NEURONTIN) 300 mg capsule Take 1-2 capsules by mouth daily at bedtime for 115 days. For pinched nerve metoprolol tartrate, short acting, (LOPRESSOR) 50 mg tablet Take 50 mg by mouth twice daily. multivit-minerals/folic/ginkgo (ONE DAILY WOMEN 50 PLUS ORAL) Take by mouth. vitamin B complex (B COMPLEX 1 ORAL) Take by mouth. vit A/vit C/vit E/zinc/copper (OCUVITE PRESERVISION ORAL) Take by mouth twice daily. Zinc 50 mg tab Take by mouth. glycopyrrolate (ROBINUL) 1 mg tablet Take 1 tablet by mouth twice daily. As needed for sweating Magnesium 30 mg tablet Take 30 mg by mouth twice daily. cholecalciferol (VITAMIN D3) 2,000 unit tablet Take 1 tablet by mouth once daily. FAMILY HISTORY Problem Relation Age of Onset Diabetes Father Coronary Artery Disease Father Hypertension Mother Breast Cancer Mother left other (Macular Degeneration) Mother Cancer Maternal Grandmother Ovarian Cancer Daughter UTERINE Social History Tobacco Use Smoking status: Never Smokeless tobacco: Never Substance Use Topics Alcohol use: No Drug use: No ROS Objective Blood pressure 132/86, pulse 80, temperature 36.9 ?C (98.4 ?F), resp. rate 20, weight 91.2 kg (201 lb), SpO2 96 %. Physical Exam Constitutional: General: She is not in acute distress. Appearance: She is not toxic-appearing or diaphoretic. HENT: Head: Normocephalic and atraumatic. Cardiovascular: Rate and Rhythm: Normal rate and regular rhythm. Heart sounds: Normal heart sounds, S1 normal and S2 normal. Pulmonary: Effort: Pulmonary effort is normal. Breath sounds: Normal breath sounds. Comments: Harsh/loose cough during exam. Neurological: Mental Status: She is alert and oriented to person, place, and time. Gait: Gait is intact. ASSESSMENT/PLAN: 1. Lower resp. tract infection - ICD9: 519.8, ICD10: J22 Start prednisone, if s/s do not improve after 3-4 days fill/take atb rx - Discussed supportive care - Limit exposure to smoke and other inhaled irritants - Discussed possible red flags and when to seek medical attention - Follow up in 3-5 days or sooner if no better or worse -If you experience chest pain/shortness of breath go to ER - DOXYCYCLINE MONOHYDRATE 100 MG TABLET Basilio Leslie APRN.CNP [facility] 08-13-2022 Miscellaneous Notes This was ordered on 08/[address] Trivedi. Yaz Trammell APRN.CNP Patient Is requesting lasix medication. Spoke to patient who has had swelling and gets worse in summer and has few vacations planned. Patient is aware holiday weekend and provider will be out was offered appointment to be seen and declined. Advised will route message but provider staff is out so may not get response since pcp is trying to manage charts on top full schedule daily of in office patient care. Trudy Chakraborty Ma documented in this encounter [facility] 07-14-2022 Miscellaneous Notes Pt informed, verbalized understanding. Bettina Lobo She can hold the B complex for now. The B vitamins are water soluble so they are urinated out what isn't needed, not really able to overdose these vitamins Addi Trivedi DO Phoned patient and went over notes from Dr Trivedi. Patient said she is taking liquid Vitamin B Complex with B 12, contains B 12 1200 mcg and B 6 2 mg, Riboflavin 17 mg, Pantothenic acid 20 mg, Niacin 20 mg she takes once daily and also takes Equate Womens 50+ multi vitamin once daily. She was concerned she was taking to much? Please obtain more information, this isn't a concerning high range for vitamin B12 especially if she is taking vitamin B12 supplement separately or with a multivitamin Addi Trivedi DO Dr. Trivedi, My test results from 06/29/2022, shows my Vitamin B-12 is 1780. Standard is 232-12??. ( I forget what the top number is, but its over 1200.). I'm very concerned with my result, considering it can mean liver problems. Please get back with me and let me know your thoughts. Thank you, Mikayla Gorman documented in this encounter [facility] 07-11-2022 Miscellaneous Notes See Telephone note. documented in this encounter [facility] 06-30-2022 Miscellaneous Notes Pt informed, verbalized understanding with no questions. Bettina Lobo Please inform patient that her labs continue to show the prediabetes range of glucose and elevated cholesterol levels. Continue to work on cutting back on carbohydrates and sugars in her diet. Need for less fried/fast/fatty foods and increased lean proteins and vegetables. Addi Trivedi DO documented in this encounter [facility] 06-28-2022 Note HNO ID: [id number] Author: Addi Trivedi DO Service: ? Author Type: Physician Type: Progress Notes Filed: 06/29/2022 10:00 AM Note Text: CC: Mikayla Gorman is a 76 year old female who presents to the office for follow up HPI: Overall feels like she is managing symptoms and recent health issues well. History of endometrial cancer, she has follow up with Dr. Villalba Oncologist and Dr. Moreira Radiation oncologist. No new changes of symptoms. Right knee pain, s/p replacement surgery in the last 6 months, has had symptoms long standing for years. also with a history of left total knee replacement by Dr. [facility] and did well with surgical correction. feels she is getting better at managing navigating the steps up and down without falling Anxiety, mood, stable, taking cymbalta and prn ativan as prescribed. Tolerating well. Low back pain, hx of lumbar spine injections, use of heating pad intermittently Bladder incontinence. Worse after her endometrial cancer, was sent to pelvic floor PHYSICAL THERAPY which she completed. Taylor it did help but knows needs to be more consistent with exercises. Didn't tolerate the oxybutynin well. Caused too dry of mouth. PAST MEDICAL HISTORY Diagnosis Date Abnormal glandular Papanicolaou smear of cervix Abn. Pap smear (cervix) Allergic rhinitis Arthritis Bilateral primary osteoarthritis of knee by Kory Espinoza on 10/04, 10/11, 10/18/2020 Chronic pain nerve related, neck, chronic Delayed emergence from general anesthesia Endometrial ca (HCC) 10/2017 Hypertension Mild concentric left ventricular hypertrophy (LVH) 10/2018 Mild left ventricular hypertrophy 10/2018 Rosacea PAST SURGICAL HISTORY Procedure Laterality Date ABDOMINAL SURGERY HX BIOPSY BREAST OPEN INCISIONAL Bx of breast, incisional, right, benign BREAST SURGERY HX COLONOSCOPY FLX DX W/COLLJ SPEC WHEN PFRMD 09/21/2020 COLPOSCOPY CERVIX UPPER/ADJACENT VAGINA Colposcopy DILATION AND CURETTAGE DXAND/THER NONOBSTETRIC 12/24/2017 Dilation AND curettage EYE SURGERY HX HYSTERECTOMY HX 2018 w/ bilateral BSO LAPS SURG CHOLECYSTECTOMY W/CHOLANGIOGRAPHY 06/03/2009 Normal [facility] NEUROPLASTY AND/TRANSPOS MEDIAN NRV CARPAL TUNNE Carpal tunnel decomp, right REDUCTION OF LARGE BREAST Breast reduction TONSILLECTOMY HX VAGINAL HYSTERECTOMY Social History: Social History Tobacco Use Smoking status: Never Smokeless tobacco: Never Substance Use Topics Alcohol use: No Drug use: No FAMILY HISTORY Problem Relation Age of Onset Diabetes Father Coronary Artery Disease Father Hypertension Mother Breast Cancer Mother left other (Macular Degeneration) Mother Cancer Maternal Grandmother Ovarian Cancer Daughter UTERINE Current Outpatient prescriptions: celecoxib (CELEBREX) 200 mg capsule Take 1 capsule by mouth twice daily. gabapentin (NEURONTIN) 300 mg capsule Take 1-2 capsules by mouth daily at bedtime for 115 days. For pinched nerve metoprolol tartrate, short acting, (LOPRESSOR) 50 mg tablet Take 50 mg by mouth twice daily. multivit-minerals/folic/ginkgo (ONE DAILY WOMEN 50 PLUS ORAL) Take by mouth. vitamin B complex (B COMPLEX 1 ORAL) Take by mouth. vit A/vit C/vit E/zinc/copper (OCUVITE PRESERVISION ORAL) Take by mouth twice daily. Zinc 50 mg tab Take by mouth. glycopyrrolate (ROBINUL) 1 mg tablet Take 1 tablet by mouth twice daily. As needed for sweating Magnesium 30 mg tablet Take 30 mg by mouth twice daily. cholecalciferol (VITAMIN D3) 2,000 unit tablet Take 1 tablet by mouth once daily. amitriptyline (ELAVIL) 25 mg tablet Take 1 tablet by mouth daily at bedtime. DULoxetine (CYMBALTA) 60 mg capsule Take 1 capsule by mouth once daily. TAKE ONE CAPSULE BY MOUTH EVERY DAY FOR pinched nerve fluticasone (FLONASE) 50 mcg/actuation nasal spray Use 2 Sprays in each nostril once daily. Rinse mouth after use. losartan (COZAAR) 100 mg tablet Take 1 tablet by mouth once daily. montelukast (SINGULAIR) 10 mg tablet Take 1 tablet by mouth once daily. LORazepam (ATIVAN) 0.5 mg Take 1 tablet by mouth three times daily as needed for up to 30 days. amLODIPine (NORVASC) 5 mg tablet Take 1 tablet by mouth once daily. Allergies: ALLERGIES Allergen Reactions Aleve [Naproxen Sod* Hives Grass Pollen Seasonal [Other] ROS: See HPI PE: 06/28/22 1149 BP: 148/100 Pulse: 64 Resp: 20 Temp: 37.4 ?C (99.4 ?F) TempSrc: Left Tympanic Weight: 90.3 kg (199 lb) Gen: AANDOX3, NAD, non-toxic appearing HEENT: PERRLA, EOMs intact b/l, nares without drainage, pharynx without erythema, exudate, lesions, or drainage. Uvula midline. Neck: No LAD, no thyromegaly, no meningismus. CV: RRR, no murmur Lungs: CTA b/l, no wheezing Skin: No rashes, lesions, or wounds on exposed skin. No edema, normal pulses Post operative changes and mild warmth right anterior knee joint Mild restriction of right hip muscles/tendo (more content not included)... [facility] 02-28-2022 History of Presen t illness Narrative CC: Mikayla Gorman is a 76 year old female who presents to the office for follow up HPI: Overall feels like she is managing symptoms and recent health issues well. History of endometrial cancer, she has follow up with Dr. Villalba Oncologist and Dr. Moreira Radiation oncologist. No new changes of symptoms. Right knee pain, chronic, has had symptoms long standing for years. History of left total knee replacement by Dr. [facility] and did well with surgical correction. just recently had right partial knee replacement done by Dr. Ron and is recovering well other than feels she has pulled muscles/tendons in right groin and calf after some of the PHYSICAL THERAPY exercises the therapist was having her do- feels this is slowly recovering. Continues to wear her compressive socks if she is walking/standing for prolonged period of time. Anxiety, mood, stable, taking cymbalta and prn ativan as prescribed. Tolerating well. Bladder incontinence. Worse after her endometrial cancer, was sent to pelvic floor PHYSICAL THERAPY which she completed. Taylor it did help but knows needs to be more consistent with exercises. Didn't tolerate the oxybutynin well. Caused too dry of mouth. PAST MEDICAL HISTORY Diagnosis Date Abnormal glandular Papanicolaou smear of cervix Abn. Pap smear (cervix) Allergic rhinitis Arthritis Bilateral primary osteoarthritis of knee by Kory Espinoza on 10/04, 10/11, 10/18/2020 Chronic pain nerve related, neck, chronic Delayed emergence from general anesthesia Endometrial ca (HCC) 10/2017 Hypertension Mild concentric left ventricular hypertrophy (LVH) 10/2018 Mild left ventricular hypertrophy 10/2018 Rosacea PAST SURGICAL HISTORY Procedure Laterality Date ABDOMINAL SURGERY HX BIOPSY BREAST OPEN INCISIONAL Bx of breast, incisional, right, benign BREAST SURGERY HX COLONOSCOPY FLX DX W/COLLJ SPEC WHEN PFRMD 09/21/2020 COLPOSCOPY CERVIX UPPER/ADJACENT VAGINA Colposcopy DILATION & CURETTAGE DX&/THER NONOBSTETRIC 12/24/2017 Dilation & curettage EYE SURGERY HX HYSTERECTOMY HX 2018 w/ bilateral BSO LAPS SURG CHOLECYSTECTOMY W/CHOLANGIOGRAPHY 06/03/2009 Normal [facility] NEUROPLASTY &/TRANSPOS MEDIAN NRV CARPAL TUNNE Carpal tunnel decomp, right REDUCTION OF LARGE BREAST Breast reduction TONSILLECTOMY HX VAGINAL HYSTERECTOMY Current Outpatient Medications Medication Sig metoprolol tartrate, short acting, (LOPRESSOR) 50 mg tablet Take 50 mg by mouth twice daily. multivit-minerals/folic/ginkgo (ONE DAILY WOMEN 50 PLUS ORAL) Take by mouth. vitamin B complex (B COMPLEX 1 ORAL) Take by mouth. vit A/vit C/vit E/zinc/copper (OCUVITE PRESERVISION ORAL) Take by mouth twice daily. Zinc 50 mg tab Take by mouth. glycopyrrolate (ROBINUL) 1 mg tablet Take 1 tablet by mouth twice daily. As needed for sweating Magnesium 30 mg tablet Take 30 mg by mouth twice daily. cholecalciferol (VITAMIN D3) 2,000 unit tablet Take 1 tablet by mouth once daily. LORazepam (ATIVAN) 0.5 mg Take 1 tablet by mouth three times daily as needed for up to 30 days. celecoxib (CELEBREX) 200 mg capsule Take 1 capsule by mouth twice daily. amitriptyline (ELAVIL) 25 mg tablet Take 1 tablet by mouth daily at bedtime. fluticasone (FLONASE) 50 mcg/actuation nasal spray Use 2 Sprays in each nostril once daily. Rinse mouth after use. DULoxetine (CYMBALTA) 60 mg capsule Take 1 capsule by mouth once daily. TAKE ONE CAPSULE BY MOUTH EVERY DAY FOR pinched nerve losartan (COZAAR) 100 mg tablet Take 1 tablet by mouth once daily. gabapentin (NEURONTIN) 300 mg capsule Take 1-2 capsules by mouth daily at bedtime for 115 days. For pinched nerve montelukast (SINGULAIR) 10 mg tablet Take 1 tablet by mouth once daily. No current facility-administered medications for this visit. ALLERGIES Allergen Reactions Aleve [Naproxen Sod* Hives Grass Pollen Seasonal [Other] Social History Tobacco Use Smoking status: Never Smokeless tobacco: Never Substance Use Topics Alcohol use: No Drug use: No ROS: See HPI PE: BP 132/80 Pulse 80 Temp (Src) 97.7 (Left Tympanic) Resp 16 Wt 199 lb (90.3kg) Gen: A&OX3, NAD, non-toxic appearing HEENT: PERRLA, EOMs intact b/l, nares without drainage, pharynx without erythema, exudate, lesions, or drainage. Uvula midline. Neck: No LAD, no thyromegaly, no meningismus. CV: RRR, no murmur Lungs: CTA b/l, no wheezing Skin: No rashes, lesions, or wounds on exposed skin. No edema, normal pulses Post operative changes and mild warmth right anterior knee joint Mild restriction of right hip muscles/tendons and right calf without signs of swelling or redness Gait slightly slowed due to pain ASSESSMENT/PLAN: 1. Essential hypertension, benign - ICD9: 401.1, ICD10: I10 (primary diagnosis) - good control - Continue current medication(s) - Encouraged dietary sodium restriction/DASH diet - Recommended regular aerobic exercise. - Recommend home blood pressure monitoring, to bring results in on next visit - Discussed need and benefit for weight loss. - Goal of BP <130/80 - LOSARTAN 100 MG TABLET 2. Need for influenza vaccination - ICD9: V04.81, ICD10: Z23 - INFLUENZA SEASONAL QUADRIVALENT HIGH DOSE AGE 65+ 3. Anxiety - ICD9: 300.00, ICD10: F41.9 rx refilled, chronic, stable - DULOXETINE 60 MG CAPSULE,DELAYED RELEASE - LORAZEPAM 0.5 MG TABLET 4. Cervical radiculopathy - ICD9: 723.4, ICD10: M54.12 rx refilled, chronic, stable - GABAPENTIN 300 MG CAPSULE 5. Encounter for screening mammogram for malignant neoplasm of breast - ICD9: V76.12, ICD10: Z12.31 - Set up for mammogram, yearly mammogram recommended - Encouraged monthly BSE - Increase calcium intake with supplements or by diet (goal of 4759-8778 mg/day - TIANA SCREENING 6. Vitamin B12 deficiency - ICD9: 266.2, ICD10: E53.8 - continue supplement 7. Vitamin D deficiency - ICD9: 268.9, ICD10: E55.9 Continue supplement 8. IFG (impaired fasting glucose) - ICD9: 790.21, ICD10: R73.01 - recheck labs as orderedl - HGB A1C - TSH BLD 9. Hyperlipidemia, mixed - ICD9: 272.2, ICD10: E78.2 - to be determined upon return of lab results - Continue current medication. - Encouraged following a low fat, low cholesterol diet. - Discussed the benefits of regular aerobic exercise and weight loss. - Check fasting lipid panel - COMP METABOLIC PANEL - CBC + DIFF - LIPID PANEL BASIC - TSH BLD 10. Status post right partial knee replacement - ICD9: V43.65, ICD10: Z96.651 - f/u with Dr. Ron [facility]oped[facility] Addi Trivedi DO Return if no improvement. Follow up with Addi Trivedi DO. To ER if develops chest pain, shortness of breath Discussed risks, benefits, alternatives, and potential side effects of medications. Patient/Guardian expressed understanding and agreed with the plan. See patient instructions. Addi Trivedi DO [id number] [place] [address] documented in this encounter [facility] 01-17-2022 History of Presen t illness Narrative Subjective HPI HPI Mikayla Gorman is a 76 year old female who presents today for CC of cough, congsestion, wheezing. This started 2 weeks ago. Has tried otc medication for relief. Symptoms are worsened by nothing. Risk factors hx of yearly bronchitis. Denies hx of asthma. Nonsmoker. .Patient presents with: Cough: x 2 weeks PAST MEDICAL HISTORY Diagnosis Date Abnormal glandular Papanicolaou smear of cervix Abn. Pap smear (cervix) Allergic rhinitis Arthritis Bilateral primary osteoarthritis of knee by Kory Espinoza on 10/04, 10/11, 10/18/2020 Chronic pain nerve related, neck, chronic Delayed emergence from general anesthesia Endometrial ca (HCC) 10/2017 Hypertension Mild concentric left ventricular hypertrophy (LVH) 10/2018 Mild left ventricular hypertrophy 10/2018 Rosacea PAST SURGICAL HISTORY Procedure Laterality Date ABDOMINAL SURGERY HX BIOPSY BREAST OPEN INCISIONAL Bx of breast, incisional, right, benign BREAST SURGERY HX COLONOSCOPY FLX DX W/COLLJ SPEC WHEN PFRMD 09/21/2020 COLPOSCOPY CERVIX UPPER/ADJACENT VAGINA Colposcopy DILATION & CURETTAGE DX&/THER NONOBSTETRIC 12/24/2017 Dilation & curettage EYE SURGERY HX HYSTERECTOMY HX 2018 w/ bilateral BSO LAPS SURG CHOLECYSTECTOMY W/CHOLANGIOGRAPHY 06/03/2009 Normal [facility] NEUROPLASTY &/TRANSPOS MEDIAN NRV CARPAL TUNNE Carpal tunnel decomp, right REDUCTION OF LARGE BREAST Breast reduction TONSILLECTOMY HX VAGINAL HYSTERECTOMY ALLERGIES Aleve [Naproxen Sodium], Grass Pollen, and Seasonal [Other] MEDICATIONS oxyCODONE IR (ROXICODONE) 5 mg immediate release tablet fluticasone (FLONASE) 50 mcg/actuation nasal spray Use 2 Sprays in each nostril once daily. Rinse mouth after use. DULoxetine (CYMBALTA) 60 mg capsule Take 1 capsule by mouth once daily. TAKE ONE CAPSULE BY MOUTH EVERY DAY FOR pinched nerve losartan (COZAAR) 100 mg tablet Take 1 tablet by mouth once daily. amitriptyline (ELAVIL) 25 mg tablet Take 1 tablet by mouth daily at bedtime. montelukast (SINGULAIR) 10 mg tablet Take 1 tablet by mouth once daily. gabapentin (NEURONTIN) 300 mg capsule Take 1-2 capsules by mouth daily at bedtime for 115 days. For pinched nerve celecoxib (CELEBREX) 200 mg capsule Take 1 capsule by mouth twice daily. metoprolol tartrate, short acting, (LOPRESSOR) 50 mg tablet Take 50 mg by mouth twice daily. multivit-minerals/folic/ginkgo (ONE DAILY WOMEN 50 PLUS ORAL) Take by mouth. vitamin B complex (B COMPLEX 1 ORAL) Take by mouth. vit A/vit C/vit E/zinc/copper (OCUVITE PRESERVISION ORAL) Take by mouth twice daily. Zinc 50 mg tab Take by mouth. glycopyrrolate (ROBINUL) 1 mg tablet Take 1 tablet by mouth twice daily. As needed for sweating Magnesium 30 mg tablet Take 30 mg by mouth twice daily. cholecalciferol (VITAMIN D3) 2,000 unit tablet Take 1 tablet by mouth once daily. FAMILY HISTORY Problem Relation Age of Onset Diabetes Father Coronary Artery Disease Father Hypertension Mother Breast Cancer Mother left other (Macular Degeneration) Mother Cancer Maternal Grandmother Ovarian Cancer Daughter UTERINE Social History Tobacco Use Smoking status: Never Smokeless tobacco: Never Substance Use Topics Alcohol use: No Drug use: No ROS Objective Blood pressure 122/80, pulse 78, temperature 37.3 C (99.2 F), resp. rate 16, weight 91.6 kg (202 lb), SpO2 95 %. Physical Exam Constitutional: General: She is not in acute distress. Appearance: She is not toxic-appearing or diaphoretic. HENT: Head: Normocephalic and atraumatic. Cardiovascular: Rate and Rhythm: Normal rate and regular rhythm. Heart sounds: Normal heart sounds, S1 normal and S2 normal. Pulmonary: Effort: Pulmonary effort is normal. Breath sounds: Examination of the right-middle field reveals rhonchi. Examination of the right-lower field reveals rhonchi. Rhonchi present. No decreased breath sounds, wheezing or rales. Neurological: Mental Status: She is alert and oriented to person, place, and time. Gait: Gait is intact. ASSESSMENT/PLAN: 1. Bronchitis - ICD9: 490, ICD10: J40 (primary diagnosis) Try prednisone -If you experience chest pain/shortness of breath go to ER - PREDNISONE 20 MG TABLET 2. Rhonchi - ICD9: 786.7, ICD10: R09.89 Xr negative - XR CHEST 2V FRONTAL/LAT 3. Lower resp. tract infection - ICD9: 519.8, ICD10: J22 Try prednisone if s/s persist or worsen fill atb rx F/u with pcp in 10 days if s/s persist - DOXYCYCLINE MONOHYDRATE 100 MG TABLET Agrees to plan Basilio Leslie APRN.REAL ESTATE SALES MANAGER documented in this encounter [facility] 12-27-2021 Hospital Discharg e instructions Patient Education 12/27/2021 11:15:06 Venous Thromboembolism Prevention Venous Thromboembolism Prevention Venous thromboembolism (VTE) is a condition in which a blood clot (thrombus) develops in the body. A deep vein thrombosis (DVT) is a blood clot that usually occurs in a deep vein in the leg or the pelvis, but it can also occur in the arm. Sometimes, pieces of a thrombus can break off and travel through the bloodstream to other parts of the body. When that happens, the thrombus is called an embolus. An embolus that travels to the lungs is called a pulmonary embolism. An embolism can block the blood flow in the blood vessels of other organs as well. How can this condition affect me? VTE is a serious health condition that can cause disability or . It is very important to get help right away. Do not ignore your symptoms. What can increase my risk? You are more likely to develop this condition if you: Have had recent major surgery or trauma. Have certain health conditions, such as cancer. Are in the hospital for a sudden illness. Have not moved for a long period of time, such as if you are on bed rest or traveling a long distance. Take certain medicines, such as control pills or hormone replacement therapy. Are or recently gave . Have a personal or family history of VTE. Are overweight. Are 60 years of age or older. Use products that contain nicotine and tobacco. What actions can I take to prevent this? In the hospital A VTE may be prevented by taking medicines that are prescribed to prevent blood clots (anticoagulants). You can also help to prevent VTE while in the hospital by taking these actions: Get out of bed and walk. Ask your health care provider if this is safe for you to do. Ask your health care provider if you should use a sequential compression device (SCD). This is a machine that pumps air into compression sleeves that are wrapped around your legs. Ask your health care provider if you should wear tight, elastic stockings that apply pressure to the lower legs (compression stockings). Compression stockings are sometimes used with SCDs. At home after surgery Understand that you have an increased risk for VTE for the first 4 6 weeks after surgery. During this time: Avoid traveling for more than 4 hours. If you must travel after surgery, ask your health care provider about additional preventive actions that you can take. Avoid sitting or lying still for too long. If possible, get up and walk around one time every hour. Ask your health care provider when this is safe for you to do. While traveling Travel that takes more than 4 hours can increase the risk of a VTE. To prevent VTE when traveling: Exercise your arms and legs every hour. You can do this by standing, stretching, and bending and straightening your arms and legs. If you are traveling by airplane, train, or bus, walk up and down the aisle as often as possible to get your blood moving. If you are traveling by car, stop and get out of the car every hour to exercise your arms and legs and stretch. Other types of exercise might include: ?Keeping your feet flat on the ground and raising your toes. ?Switching from tightening the muscles in your calves and thighs to relaxing those same muscles while you are sitting. ?Pointing and flexing your feet at the ankle joints while you are sitting. Drink enough water to keep your urine pale yellow. Avoid drinking alcohol during long travel. Generally, it is not recommended that you take medicines to prevent DVT during routine travel. Activity Stay active. Avoid sitting or lying in bed for long periods of time without moving your arms and legs. Exercise by moving your arms and legs for 30 minutes or more every day. Try not to bump or injure your legs. Avoid crossing your legs when you are sitting. Lifestyle Do not use any products that contain nicotine or tobacco, such as cigarettes, e-cigarettes, and chewing tobacco. If you need help quitting, ask your health care provider. This is especially important if you take estrogen medicines. Avoid wearing tight clothing around your legs or waist. General information Wear compression stockings as told by your health care provider. These stockings help to prevent blood clots and reduce swelling in your legs. Do not let them bunch up when you are wearing them. Avoid using medicines that contain estrogen if you do not need them. These include control pills and hormone replacement therapy. Do not use pillows under your knees while lying down unless told by your health care provider. Maintain a healthy weight. Where to find more information Centers for Disease Control and Prevention: www.cdc.gov [place] [employer]: www.heart.org Get help right away if: You have chest pain or shortness of breath. You cough up blood. You have a rapid or irregular heartbeat. You feel light-headed or dizzy. You have new or increased pain, swelling, or redness in an arm or leg. You have numbness or tingling in an arm or leg. You have blood in your vomit, stool, or urine. These symptoms may represent a serious problem that is an emergency. Do not wait to see if the symptoms will go away. Get medical help right away. Call your local emergency services (911 in the [place] Do not drive yourself to the hospital. Summary Venous thromboembolism (VTE) is a condition in which a blood clot (thrombus)develops in the body. A deep vein thrombosis (DVT) is a blood clot that usually occurs in a deep vein in the leg or the pelvis, but it can also occur in the arm. VTE is a serious health condition that can cause disability or . It is very important to get help right away. Do not ignore your symptoms. If you are traveling, exercise your arms and legs every hour. Stay active to help prevent blood clots. Avoid sitting or lying in bed for long periods of time without moving your arms and legs. This information is not intended to replace advice given to you by your health care provider. Make sure you discuss any questions you have with your health care provider. Document Released: 02/21/2010 Document Revised: 06/24/2019 Document Reviewed: 05/13/2019 [employer] Patient Education 2020 [employer]. 12/27/2021 11:15:06 Monitored Anesthesia Care, Care After Monitored Anesthesia Care, Care After These instructions provide you with information about caring for yourself after your procedure. Your health care provider may also give you more specific instructions. Your treatment has been planned according to current medical practices, but problems sometimes occur. Call your health care provider if you have any problems or questions after your procedure. What can I expect after the procedure? After your procedure, you may: Feel sleepy for several hours. Feel clumsy and have poor balance for several hours. Feel forgetful about what happened after the procedure. Have poor judgment for several hours. Feel nauseous or vomit. Have a sore throat if you had a breathing tube during the procedure. Follow these instructions at home: For at least 24 hours after the procedure: Have a responsible adult stay with you. It is important to have someone help care for you until you are awake and alert. Rest as needed. Do not: ?Participate in activities in which you could fall or become injured. ?Drive. ?Use heavy machinery. ?Drink alcohol. ?Take sleeping pills or medicines that cause drowsiness. ?Make important decisions or sign legal documents. ?Take care of children on your own. Eating and drinking Follow the diet that is recommended by your health care provider. If you vomit, drink water, juice, or soup when you can drink without vomiting. Make sure you have little or no nausea before eating solid foods. General instructions Take lmen-ead-nwshxlz and prescription medicines only as told by your health care provider. If you have sleep apnea, surgery and certain medicines can increase your risk for breathing problems. Follow instructions from your health care provider about wearing your sleep device: ?Anytime you are sleeping, including during daytime naps. ?While taking prescription pain medicines, sleeping medicines, or medicines that make you drowsy. If you smoke, do not smoke without supervision. Keep all follow-up visits as told by your health care provider. This is important. Contact a health care provider if: You keep feeling nauseous or you keep vomiting. You feel light-headed. You develop a rash. You have a fever. Get help right away if: You have trouble breathing. Summary For several hours after your procedure, you may feel sleepy and have poor judgment. Have a responsible adult stay with you for at least 24 hours or until you are awake and alert. This information is not intended to replace advice given to you by your health care provider. Make sure you discuss any questions you have with your health care provider. Document Released: 06/25/2016 Document Revised: 06/03/2018 Document Reviewed: 06/25/2016 [employer] Patient Education 2020 [employer]. 12/27/2021 11:15:06 Spinal Anesthesia and Epidural Anesthesia, Care After, Zdqo-lq-Eqrw Spinal Anesthesia and Epidural Anesthesia, Care After This sheet gives you information about how to care for yourself after your procedure. Your doctor may also give you more specific instructions. If you have problems or questions, call your doctor. Follow these instructions at home: For at least 24 hours after the procedure: Have a responsible adult stay with you. It is important to have someone help care for you until you are awake and alert. Rest as needed. Do not do activities where you could fall or get hurt (injured). Do not drive. Do not use heavy machinery. Do not drink alcohol. Do not take sleeping pills or medicines that make you sleepy (drowsy). Do not make important decisions. Do not sign legal documents. Do not take care of children on your own. Eating and drinking If you throw up (vomit), drink water, juice, or soup when nausea and vomiting stop. Drink enough fluid to keep your pee (urine) pale yellow. Make sure you do not feel like throwing up (nauseous) before you eat solid foods. Follow the diet that your doctor recommends. General instructions Return to your normal activities as told by your doctor. Ask your doctor what activities are safe for you. Take dncw-wbp-iyottcn and prescription medicines only as told by your doctor. If you have sleep apnea, surgery and certain medicines can raise your risk for breathing problems. Follow instructions from your doctor about when to wear your sleep device. Your doctor may tell you to wear your sleep device: ?Anytime you are sleeping, including during daytime naps. ?While taking prescription pain medicines, sleeping pills, or medicines that make you sleepy. Do not use any products that contain nicotine or tobacco. This includes cigarettes and e-cigarettes. ?If you need help quitting, ask your doctor. ?If you smoke, do not smoke by yourself. Make sure someone is nearby in case you need help. Keep all follow-up visits as told by your doctor. This is important. Contact a doctor if: It has been more than one day since your procedure and you feel like throwing up. It has been more than one day since your procedure and you throw up. You have a rash. Get help right away if: You have a fever. You have a headache that lasts a long time. You have a very bad headache. Your vision is blurry. You see two of a single object (double vision). You are dizzy or light-headed. You faint. Your arms or legs tingle, feel weak, or get numb. You have trouble breathing. You cannot pee (urinate). Summary After the procedure, have a responsible adult stay with you at home until you are fully awake and alert. Do not do activities that might get you injured. Do not drive, use heavy machinery, drink alcohol, or make important decisions for 24 hours after the procedure. Take medicines as told by your doctor. Do not use products that contain nicotine or tobacco. Get help right away if you have a fever, blurry vision, difficulty breathing or passing urine, or weakness or numbness in arms or legs. This information is not intended to replace advice given to you by your health care provider. Make sure you discuss any questions you have with your health care provider. Document Released: 06/26/2016 Document Revised: 02/15/2018 Document Reviewed: 06/26/2016 [employer] Patient Education 2020 [employer]. 12/27/2021 11:15:06 Regional Anesthesia Regional Anesthesia Regional anesthesia is a method used to temporarily block feeling in one area of the body. You may have regional anesthesia before a medical procedure or surgery. A health care provider who specializes in giving anesthesia (anesthesiologist) injects a type of medicine near a nerve or a group of nerves. This medicine makes that area of the body numb. Regional anesthesia allows you to be awake during the procedure or surgery but keeps you from feeling pain in the affected area. There are three types of regional anesthesia: Spinal anesthesia. This is a one-time injection of medicine into the fluid that surrounds your spinal cord. This numbs the area below and slightly above the injection site. Epidural anesthesia. This is another medicine that may be placed into your back, but just outside of the protective tissue that covers your spinal cord. Instead of a one-time injection, the medicine is often given gradually over time through a small tube (catheter)that remains in your back for as long as pain control is needed. Peripheral nerve block. This is an injection that is given in an area of the body other than the spine to block all feeling below the injection site. Peripheral nerve blocks may be given as a single injection before your procedure or may be given through a catheter for as long as you need pain control. Regional anesthesia can be used alone or in combination with other types of anesthesia. Compared to using medicine that makes you fall asleep (general anesthetic), regional anesthesia has many benefits, such as: Improved pain control after your surgery. Less nausea, vomiting, or drowsiness after surgery. A faster recovery. Tell a health care provider about: Any allergies you have. All medicines you are taking, including vitamins, herbs, eye drops, creams, and cpsm-pxk-fehtzmg medicines. Any use of drugs, alcohol, or tobacco. Any problems you or family members have had with anesthetic medicines. Any blood disorders you have. Any surgeries you have had. Any medical conditions you have or have had, especially heart failure, chronic obstructive pulmonary disease (COPD), or sleep apnea. Whether you are or may be . What are the risks? Generally, this is a safe procedure. However, problems may occur, including: Pain. Nausea. Vomiting. Itching. Low blood pressure. Headache. Nerve damage. Infection. Bleeding around the injection site. Trouble urinating. Allergic reactions to medicine. What happens before the procedure? Staying hydrated Follow instructions from your health care provider about hydration, which may include: Up to 2 hours before the procedure you may continue to drink clear liquids, such as water, clear fruit juice, black coffee, and plain tea. Eating and drinking restrictions Follow instructions from your health care provider about eating and drinking, which may include: 8 hours before the procedure stop eating heavy meals or foods, such as meat, fried foods, or fatty foods. 6 hours before the procedure stop eating light meals or foods, such as toast or cereal. 6 hours before the procedure stop drinking milk or drinks that contain milk. 2 hours before the procedure stop drinking clear liquids. Medicines Ask your health care provider about: Changing or stopping your regular medicines. This is especially important if you are taking diabetes medicines or blood thinners. Taking medicines such as aspirin and ibuprofen. These medicines can thin your blood. Do not take these medicines unless your health care provider tells you to take them. Taking qaoc-xai-gkxpktz medicines, vitamins, herbs, and supplements. General instructions Plan to have someone take you home from the hospital or clinic. If you will be going home right after the procedure, plan to have someone with you for 24 hours. You may need to have blood or imaging tests. Ask your health care provider what steps will be taken to help prevent infection. These may include washing skin with a germ-killing soap. If you use a sleep apnea device, ask your health care provider whether you should bring it with you on the day of your surgery. What happens during the procedure? Depending on the medical procedure you are having done, an IV may be inserted into one of your veins. The anesthesiologist will do a physical exam to find the best location to give the regional anesthesia. To locate the nerve, he or she may also use: ?A device that activates the nerve and causes your muscles to twitch (nerve stimulator). ?An imaging tool that uses sound waves to create images of the area (ultrasound). You may be given a medicine to help you relax (sedative). A medicine called a local anesthetic may be injected to numb the area where the regional anesthetic will be injected. You will get regional anesthesia by injection or through a catheter. The anesthesiologist will check to make sure the medicine is working before the rest of your medical procedure begins. Depending on the type of regional anesthesia you received, you may have a small bandage (dressing) placed over the injection site. The procedure may vary among health care providers and hospitals. What can I expect after the procedure? After your procedure, it is common to have: Sleepiness. Nausea. Itching. Numbness. Shivering or feeling cold. Your blood pressure, heart rate, breathing rate, and blood oxygen level will be monitored until you leave the hospital or clinic. Follow these instructions at home: Do not drive for 24 hours if you were given a sedative during your procedure. Take aokm-hzk-jzfjfji and prescription medicines only as told by your health care provider. Do not drive, exercise, or do any other activities that require coordination for 24 hours or as told by your health care provider. Ask your health care provider when you can return to your usual activities. Drink enough fluid to keep your urine pale yellow. If you had a dressing placed over the injection site, only remove it when told to do so by your health care provider. Keep all follow-up visits as told by your health care provider. This is important. Contact a health care provider if you: Continue to have nausea and vomiting for more than 1 day. Develop a rash. Have trouble urinating. Get help right away if you: Have bleeding from the injection site or bleeding under the skin at the injection site. Have redness, swelling, or pain around your injection site. Have a fever. Develop a headache. Develop new numbness or weakness. Summary Regional anesthesia is a method used to temporarily block feeling in one area of the body. It may be done to block pain during a medical procedure or surgery. Follow instructions from your health care provider about taking medicines and about eating and drinking before the procedure. Ask your health care provider when you can return to your usual activities after the procedure. This information is not intended to replace advice given to you by your health care provider. Make sure you discuss any questions you have with your health care provider. Document Released: 06/26/2016 Document Revised: 04/21/2019 Document Reviewed: 04/21/2019 [employer] Patient Education 2020 [employer]. 12/27/2021 11:15:06 Total Knee Replacement, Care After, Nkwx-ga-Zsfm Total Knee Replacement, Care After This sheet gives you information about how to care for yourself after your procedure. Your doctor may also give you more specific instructions. If you have problems or questions, contact your doctor. What can I expect after the procedure? After the procedure, it is common to have: Pain. Swelling. A small amount of blood coming from your cut from surgery (incision). Clear fluid coming from your cut from surgery. Limited movement of your knee. Follow these instructions at home: Medicines Take ridl-xgm-ndgsdnr and prescription medicines only as told by your doctor. If you were prescribed a blood thinner (anticoagulant), take it as told by your doctor. Ask your doctor if the medicine prescribed to you: ?Requires you to avoid driving or using heavy machinery. ?Can cause trouble pooping (constipation). You may need to take steps to prevent or treat trouble pooping: ?Drink enough fluid to keep your pee (urine) pale yellow. ?Take fpsr-nzu-maobsuy or prescription medicines. ?Eat foods that are high in fiber. These include beans, whole grains, and fresh fruits and vegetables. ?Limit foods that are high in fat and sugar. These include fried or sweet foods. Bathing Do not take baths, swim, or use a hot tub until your doctor approves. Ask your doctor if you may take showers. You may only be allowed to take sponge baths. Keep your bandage (dressing) dry until your doctor says it can be taken off. Incision care and drain care Follow instructions from your doctor about how to take care of your cut from surgery. Make sure you: ?Wash your hands with soap and water before and after you change your bandage. If you cannot use soap and water, use hand commercial lending vice president. ?Change your bandage as told by your doctor. ?Leave stitches (sutures), skin glue, or skin tape (adhesive) strips in place. They may need to stay in place for 2 weeks or longer. If tape strips get loose and curl up, you may trim the loose edges. Do not remove tape strips completely unless your doctor says it is okay. Check your cut from surgery and your drain site every day for signs of infection. Check for: ?More redness, swelling, or pain. ?More fluid or blood. ?Warmth. ?Pus or a bad smell. If you have a drain, follow instructions from your doctor about caring for it. Managing pain, stiffness, and swelling If told, put ice on your knee. ?Put ice in a plastic bag or use the icing device (cold flow pad or cryocuff) that you were given. Follow your doctor's directions about how to use the icing device. ?Place a towel between your skin and the bag or between your skin and the icing device. ?Leave the ice on for 20 minutes, 2 3 times per day. If told, put heat on your knee before you exercise. Use the heat source that your doctor recommends, such as a moist heat pack or a heating pad. ?Place a towel between your skin and the heat source. ?Leave the heat on for 20 30 minutes. ?Remove the heat if your skin turns bright red. This is very important if you are unable to feel pain, heat, or cold. You may have a greater risk of getting burned. Move your toes often. Raise (elevate) your knee above the level of your heart while you are sitting or lying down. ?Use several pillows to keep your leg straight. ?Do not put a pillow just under the knee. If the knee is bent for a long time, this may make the knee stiff. Wear elastic knee support as told by your doctor. Activity Rest as told by your doctor. Do not sit for a long time without moving. Get up to take short walks every 1 2 hours. This is important. Ask for help if you feel weak or unsteady. Ask your doctor what activities are safe for you. Avoid activities that put stress on your knees. These include running, jumping rope, and jumping jacks. Do not play contact sports until your doctor says it is okay. Do exercises as told by your physical therapist. If you have been sent home with a knee joint motion machine (continuous passive motion machine), use it as told by your doctor. Safety Do not use your leg to support your body weight until your doctor says that you can. Use crutches or a walker as told by your doctor. Do not drive until your doctor says it is okay. Ask your doctor when it is safe to drive. General instructions Do not use any products that contain nicotine or tobacco, such as cigarettes, e-cigarettes, and chewing tobacco. These can delay healing. If you need help quitting, ask your doctor. Wear special socks (compression stockings) as told by your doctor. Tell your doctor if you plan to have dental work. Also: ?Tell your dentist about your joint replacement. ?Ask your doctor if there are instructions you need to follow before dental care and routine cleanings. Keep all follow-up visits as told by your doctor. This is important. Contact a doctor if: You have more redness, swelling, or pain around your cut from surgery or your drain. You have more fluid or blood coming from your cut from surgery or your drain. You have pus or a bad smell coming from your cut from surgery or your drain. Your cut from surgery or your drain area feels warm to the touch. You have a fever. Your cut breaks open. You have knee pain that does not go away. The movement of your knee is getting worse. Your new joint feels loose. Get help right away if you have: Pain in your calf or thigh. Swelling in your calf or thigh. Shortness of breath. Trouble breathing. Chest pain. Summary After the procedure, it is common to have pain and swelling, blood or fluid coming from your cut from surgery, and trouble moving your knee. Follow instructions from your doctor about how to take care of your cut from surgery. Use crutches or a walker as told by your doctor. If you were prescribed a blood thinner, take it as told by your doctor. Keep all follow-up visits as told by your doctor. This is important. This information is not intended to replace advice given to you by your health care provider. Make sure you discuss any questions you have with your health care provider. Document Released: 05/27/2012 Document Revised: 07/14/2019 Document Reviewed: 10/17/2018 [employer] Patient Education 2020 [employer]. Follow Up Care 11/10/2021 10:41:18 With:ADELAIDA RON MD Address: [address] [place] [address] [address] [facility] [address] [place] [address] [phone] When: Unknown Comments:follow up appointment with Kory in [place] on 01/09/22 at 3:15physical therapy 12/29/21 at 11 with Jose at [facility] 12-27-2021 Summary of episod e note Discharge Instructions Thank you for allowing [facility] to assist you with your healthcare needs. The following is important discharge information regarding your hospital visit. Your Care Team ADDI TRIVEDI DO What to do next Follow Up Appointments Follow Up with ADELAIDA RON MD When Why: follow up appointment with Kory in [place] on 01/09/22 at 3:15 physical therapy 12/29/21 at 11 with Jose at [facility] Where: [id number] [facility] [address] [place] [address] [phone] The Following Activity and Diet Have Been Ordered for You No qualifying data available. No qualifying data available. The Following Equipment Has Been Ordered for You No qualifying data available. The Following Treatments Have Been Ordered for You Discharge Labs No qualifying data available. Discharge Radiology No qualifying data available. Other Therapies No qualifying data available. Post Acute Orders No qualifying data available. Someone Will Contact You Regarding These Home Health Referrals No home referrals have been ordered for you. No one will call you. Allergies Aleve (Hives) Medications Please ask your primary doctor or pharmacist before taking any other medication not listed, including over the counter drugs, herbal medications, vitamins and or supplements as they may interact with your home medications. What How Much When Instructions Last Dose Unchanged amitriptyline (amitriptyline 25 mg oral tablet) 1 tab(s) by mouth Daily at bedtime Unchanged celecoxib (celecoxib 200 mg oral capsule) 1 cap by mouth Two (2) times a day Unchanged cholecalciferol (Vitamin D3) 1,000 unit(s) by mouth Every day Unchanged DULoxetine (DULoxetine 60 mg oral delayed release capsule) 1 cap by mouth Once a day Unchanged famotidine (famotidine 20 mg oral tablet) 1 tab(s) by mouth Once a day Unchanged fluticasone nasal (fluticasone proprionate NASAL 50 mcg/ spray) 2 spray(s) each nostril Once a day (in the morning) Unchanged gabapentin (gabapentin 300 mg oral capsule) 1 cap by mouth Once a day Unchanged herbal/ nutritional product (Magnesium complex 400 mg) 1 tab by mouth Every day Unchanged LORazepam (LORazepam 0.5 mg oral tablet) 1 tab(s) by mouth Three (3) times a day as needed for as needed for anxiety Unchanged losartan (losartan 100 mg oral tablet) 1 tab(s) by mouth Once a day Unchanged metoprolol (Metoprolol Succinate ER 50 mg oral TABLET extended release) 1 tab(s) by mouth Once a day Unchanged montelukast (montelukast 10 mg oral tablet) 1 tab(s) by mouth Once a day Unchanged multivitamin (B-Complex with B-12 oral tablet) 1 tab(s) by mouth Every day Unchanged multivitamin (Specialized [employer] Women's Daily Multivitamin) 1 tab by mouth Once a day Unchanged multivitamin with minerals (Macular Health Formula oral capsule) 1 cap by mouth Once a day Unchanged ondansetron (ondansetron 4 mg oral tablet) 1 tab(s) by mouth Every 8 hours as needed for Nausea/Vomiting Unchanged oxyCODONE (oxyCODONE 5 mg oral tablet ( IMMEDIATE release )) 1 tab(s) by mouth Every 4 hours as needed for for pain Unchanged zinc gluconate (zinc (as gluconate) 50 mg oral tablet) 1 tab(s) by mouth Every day Please take this list to your next doctor s visit. Bring all medications you take, including over the counter medications, herbals and other supplements with you to your doctor s visit. Patients and families are reminded to discard old lists and to update any records with all medication providers or retail pharmacies. Education Materials Venous Thromboembolism Prevention Venous thromboembolism (VTE) is a condition in which a blood clot (thrombus) develops in the body. A deep vein thrombosis (DVT) is a blood clot that usually occurs in a deep vein in the leg or the pelvis, but it can also occur in the arm. Sometimes, pieces of a thrombus can break off and travel through the bloodstream to other parts of the body. When that happens, the thrombus is called an embolus. An embolus that travels to the lungs is called a pulmonary embolism. An embolism can block the blood flow in the blood vessels of other organs as well. How can this condition affect me? VTE is a serious health condition that can cause disability or . It is very important to get help right away. Do not ignore your symptoms. What can increase my risk? You are more likely to develop this condition if you: Have had recent major surgery or trauma. Have certain health conditions, such as cancer. Are in the hospital for a sudden illness. Have not moved for a long period of time, such as if you are on bed rest or traveling a long distance. Take certain medicines, such as control pills or hormone replacement therapy. Are or recently gave . Have a personal or family history of VTE. Are overweight. Are 60 years of age or older. Use products that contain nicotine and tobacco. What actions can I take to prevent this? In the hospital A VTE may be prevented by taking medicines that are prescribed to prevent blood clots (anticoagulants). You can also help to prevent VTE while in the hospital by taking these actions: Get out of bed and walk. Ask your health care provider if this is safe for you to do. Ask your health care provider if you should use a sequential compression device (SCD). This is a machine that pumps air into compression sleeves that are wrapped around your legs. Ask your health care provider if you should wear tight, elastic stockings that apply pressure to the lower legs (compression stockings). Compression stockings are sometimes used with SCDs. At home after surgery Understand that you have an increased risk for VTE for the first 4 6 weeks after surgery. During this time: Avoid traveling for more than 4 hours. If you must travel after surgery, ask your health care provider about additional preventive actions that you can take. Avoid sitting or lying still for too long. If possible, get up and walk around one time every hour. Ask your health care provider when this is safe for you to do. While traveling Travel that takes more than 4 hours can increase the risk of a VTE. To prevent VTE when traveling: Exercise your arms and legs every hour. You can do this by standing, stretching, and bending and straightening your arms and legs. If you are traveling by airplane, train, or bus, walk up and down the aisle as often as possible to get your blood moving. If you are traveling by car, stop and get out of the car every hour to exercise your arms and legs and stretch. Other types of exercise might include: ? Keeping your feet flat on the ground and raising your toes. ? Switching from tightening the muscles in your calves and thighs to relaxing those same muscles while you are sitting. ? Pointing and flexing your feet at the ankle joints while you are sitting. Drink enough water to keep your urine pale yellow. Avoid drinking alcohol during long travel. Generally, it is not recommended that you take medicines to prevent DVT during routine travel. Activity Stay active. Avoid sitting or lying in bed for long periods of time without moving your arms and legs. Exercise by moving your arms and legs for 30 minutes or more every day. Try not to bump or injure your legs. Avoid crossing your legs when you are sitting. Lifestyle Do not use any products that contain nicotine or tobacco, such as cigarettes, e-cigarettes, and chewing tobacco. If you need help quitting, ask your health care provider. This is especially important if you take estrogen medicines. Avoid wearing tight clothing around your legs or waist. General information Wear compression stockings as told by your health care provider. These stockings help to prevent blood clots and reduce swelling in your legs. Do not let them bunch up when you are wearing them. Avoid using medicines that contain estrogen if you do not need them. These include control pills and hormone replacement therapy. Do not use pillows under your knees while lying down unless told by your health care provider. Maintain a healthy weight. Where to find more information Centers for Disease Control and Prevention: www.cdc.gov [employer] [employer]: www.heart.org Get help right away if: You have chest pain or shortness of breath. You cough up blood. You have a rapid or irregular heartbeat. You feel light-headed or dizzy. You have new or increased pain, swelling, or redness in an arm or leg. You have numbness or tingling in an arm or leg. You have blood in your vomit, stool, or urine. These symptoms may represent a serious problem that is an emergency. Do not wait to see if the symptoms will go away. Get medical help right away. Call your local emergency services (911 in the [place] Do not drive yourself to the hospital. Summary Venous thromboembolism (VTE) is a condition in which a blood clot (thrombus)develops in the body. A deep vein thrombosis (DVT) is a blood clot that usually occurs in a deep vein in the leg or the pelvis, but it can also occur in the arm. VTE is a serious health condition that can cause disability or . It is very important to get help right away. Do not ignore your symptoms. If you are traveling, exercise your arms and legs every hour. Stay active to help prevent blood clots. Avoid sitting or lying in bed for long periods of time without moving your arms and legs. This information is not intended to replace advice given to you by your health care provider. Make sure you discuss any questions you have with your health care provider. Document Released: 02/21/2010 Document Revised: 06/24/2019 Document Reviewed: 05/13/2019 [employer] Patient Education 2020 [employer] Monitored Anesthesia Care, Care After These instructions provide you with information about caring for yourself after your procedure. Your health care provider may also give you more specific instructions. Your treatment has been planned according to current medical practices, but problems sometimes occur. Call your health care provider if you have any problems or questions after your procedure. What can I expect after the procedure? After your procedure, you may: Feel sleepy for several hours. Feel clumsy and have poor balance for several hours. Feel forgetful about what happened after the procedure. Have poor judgment for several hours. Feel nauseous or vomit. Have a sore throat if you had a breathing tube during the procedure. Follow these instructions at home: For at least 24 hours after the procedure: Have a responsible adult stay with you. It is important to have someone help care for you until you are awake and alert. Rest as needed. Do not: ? Participate in activities in which you could fall or become injured. ? Drive. ? Use heavy machinery. ? Drink alcohol. ? Take sleeping pills or medicines that cause drowsiness. ? Make important decisions or sign legal documents. ? Take care of children on your own. Eating and drinking Follow the diet that is recommended by your health care provider. If you vomit, drink water, juice, or soup when you can drink without vomiting. Make sure you have little or no nausea before eating solid foods. General instructions Take igcg-rii-yocpubf and prescription medicines only as told by your health care provider. If you have sleep apnea, surgery and certain medicines can increase your risk for breathing problems. Follow instructions from your health care provider about wearing your sleep device: ? Anytime you are sleeping, including during daytime naps. ? While taking prescription pain medicines, sleeping medicines, or medicines that make you drowsy. If you smoke, do not smoke without supervision. Keep all follow-up visits as told by your health care provider. This is important. Contact a health care provider if: You keep feeling nauseous or you keep vomiting. You feel light-headed. You develop a rash. You have a fever. Get help right away if: You have trouble breathing. Summary For several hours after your procedure, you may feel sleepy and have poor judgment. Have a responsible adult stay with you for at least 24 hours or until you are awake and alert. This information is not intended to replace advice given to you by your health care provider. Make sure you discuss any questions you have with your health care provider. Document Released: 06/25/2016 Document Revised: 06/03/2018 Document Reviewed: 06/25/2016 [employer] Patient Education 2020 [employer] Spinal Anesthesia and Epidural Anesthesia, Care After This sheet gives you information about how to care for yourself after your procedure. Your doctor may also give you more specific instructions. If you have problems or questions, call your doctor. Follow these instructions at home: For at least 24 hours after the procedure: Have a responsible adult stay with you. It is important to have someone help care for you until you are awake and alert. Rest as needed. Do not do activities where you could fall or get hurt (injured). Do not drive. Do not use heavy machinery. Do not drink alcohol. Do not take sleeping pills or medicines that make you sleepy (drowsy). Do not make important decisions. Do not sign legal documents. Do not take care of children on your own. Eating and drinking If you throw up (vomit), drink water, juice, or soup when nausea and vomiting stop. Drink enough fluid to keep your pee (urine) pale yellow. Make sure you do not feel like throwing up (nauseous) before you eat solid foods. Follow the diet that your doctor recommends. General instructions Return to your normal activities as told by your doctor. Ask your doctor what activities are safe for you. Take auxc-msn-dirhbor and prescription medicines only as told by your doctor. If you have sleep apnea, surgery and certain medicines can raise your risk for breathing problems. Follow instructions from your doctor about when to wear your sleep device. Your doctor may tell you to wear your sleep device: ? Anytime you are sleeping, including during daytime naps. ? While taking prescription pain medicines, sleeping pills, or medicines that make you sleepy. Do not use any products that contain nicotine or tobacco. This includes cigarettes and e-cigarettes. ? If you need help quitting, ask your doctor. ? If you smoke, do not smoke by yourself. Make sure someone is nearby in case you need help. Keep all follow-up visits as told by your doctor. This is important. Contact a doctor if: It has been more than one day since your procedure and you feel like throwing up. It has been more than one day since your procedure and you throw up. You have a rash. Get help right away if: You have a fever. You have a headache that lasts a long time. You have a very bad headache. Your vision is blurry. You see two of a single object (double vision). You are dizzy or light-headed. You faint. Your arms or legs tingle, feel weak, or get numb. You have trouble breathing. You cannot pee (urinate). Summary After the procedure, have a responsible adult stay with you at home until you are fully awake and alert. Do not do activities that might get you injured. Do not drive, use heavy machinery, drink alcohol, or make important decisions for 24 hours after the procedure. Take medicines as told by your doctor. Do not use products that contain nicotine or tobacco. Get help right away if you have a fever, blurry vision, difficulty breathing or passing urine, or weakness or numbness in arms or legs. This information is not intended to replace advice given to you by your health care provider. Make sure you discuss any questions you have with your health care provider. Document Released: 06/26/2016 Document Revised: 02/15/2018 Document Reviewed: 06/26/2016 [employer] Patient Education 2020 [employer]. Regional Anesthesia Regional anesthesia is a method used to temporarily block feeling in one area of the body. You may have regional anesthesia before a medical procedure or surgery. A health care provider who specializes in giving anesthesia (anesthesiologist) injects a type of medicine near a nerve or a group of nerves. This medicine makes that area of the body numb. Regional anesthesia allows you to be awake during the procedure or surgery but keeps you from feeling pain in the affected area. There are three types of regional anesthesia: Spinal anesthesia. This is a one-time injection of medicine into the fluid that surrounds your spinal cord. This numbs the area below and slightly above the injection site. Epidural anesthesia. This is another medicine that may be placed into your back, but just outside of the protective tissue that covers your spinal cord. Instead of a one-time injection, the medicine is often given gradually over time through a small tube (catheter)that remains in your back for as long as pain control is needed. Peripheral nerve block. This is an injection that is given in an area of the body other than the spine to block all feeling below the injection site. Peripheral nerve blocks may be given as a single injection before your procedure or may be given through a catheter for as long as you need pain control. Regional anesthesia can be used alone or in combination with other types of anesthesia. Compared to using medicine that makes you fall asleep (general anesthetic), regional anesthesia has many benefits, such as: Improved pain control after your surgery. Less nausea, vomiting, or drowsiness after surgery. A faster recovery. Tell a health care provider about: Any allergies you have. All medicines you are taking, including vitamins, herbs, eye drops, creams, and bvbs-qrg-gvcjjpv medicines. Any use of drugs, alcohol, or tobacco. Any problems you or family members have had with anesthetic medicines. Any blood disorders you have. Any surgeries you have had. Any medical conditions you have or have had, especially heart failure, chronic obstructive pulmonary disease (COPD), or sleep apnea. Whether you are or may be . What are the risks? Generally, this is a safe procedure. However, problems may occur, including: Pain. Nausea. Vomiting. Itching. Low blood pressure. Headache. Nerve damage. Infection. Bleeding around the injection site. Trouble urinating. Allergic reactions to medicine. What happens before the procedure? Staying hydrated Follow instructions from your health care provider about hydration, which may include: Up to 2 hours before the procedure you may continue to drink clear liquids, such as water, clear fruit juice, black coffee, and plain tea. Eating and drinking restrictions Follow instructions from your health care provider about eating and drinking, which may include: 8 hours before the procedure stop eating heavy meals or foods, such as meat, fried foods, or fatty foods. 6 hours before the procedure stop eating light meals or foods, such as toast or cereal. 6 hours before the procedure stop drinking milk or drinks that contain milk. 2 hours before the procedure stop drinking clear liquids. Medicines Ask your health care provider about: Changing or stopping your regular medicines. This is especially important if you are taking diabetes medicines or blood thinners. Taking medicines such as aspirin and ibuprofen. These medicines can thin your blood. Do not take these medicines unless your health care provider tells you to take them. Taking msei-sxm-plsonmw medicines, vitamins, herbs, and supplements. General instructions Plan to have someone take you home from the hospital or clinic. If you will be going home right after the procedure, plan to have someone with you for 24 hours. You may need to have blood or imaging tests. Ask your health care provider what steps will be taken to help prevent infection. These may include washing skin with a germ-killing soap. If you use a sleep apnea device, ask your health care provider whether you should bring it with you on the day of your surgery. What happens during the procedure? Depending on the medical procedure you are having done, an IV may be inserted into one of your veins. The anesthesiologist will do a physical exam to find the best location to give the regional anesthesia. To locate the nerve, he or she may also use: ? A device that activates the nerve and causes your muscles to twitch (nerve stimulator). ? An imaging tool that uses sound waves to create images of the area (ultrasound). You may be given a medicine to help you relax (sedative). A medicine called a local anesthetic may be injected to numb the area where the regional anesthetic will be injected. You will get regional anesthesia by injection or through a catheter. The anesthesiologist will check to make sure the medicine is working before the rest of your medical procedure begins. Depending on the type of regional anesthesia you received, you may have a small bandage (dressing) placed over the injection site. The procedure may vary among health care providers and hospitals. What can I expect after the procedure? After your procedure, it is common to have: Sleepiness. Nausea. Itching. Numbness. Shivering or feeling cold. Your blood pressure, heart rate, breathing rate, and blood oxygen level will be monitored until you leave the hospital or clinic. Follow these instructions at home: Do not drive for 24 hours if you were given a sedative during your procedure. Take ezrc-tmg-wirxstj and prescription medicines only as told by your health care provider. Do not drive, exercise, or do any other activities that require coordination for 24 hours or as told by your health care provider. Ask your health care provider when you can return to your usual activities. Drink enough fluid to keep your urine pale yellow. If you had a dressing placed over the injection site, only remove it when told to do so by your health care provider. Keep all follow-up visits as told by your health care provider. This is important. Contact a health care provider if you: Continue to have nausea and vomiting for more than 1 day. Develop a rash. Have trouble urinating. Get help right away if you: Have bleeding from the injection site or bleeding under the skin at the injection site. Have redness, swelling, or pain around your injection site. Have a fever. Develop a headache. Develop new numbness or weakness. Summary Regional anesthesia is a method used to temporarily block feeling in one area of the body. It may be done to block pain during a medical procedure or surgery. Follow instructions from your health care provider about taking medicines and about eating and drinking before the procedure. Ask your health care provider when you can return to your usual activities after the procedure. This information is not intended to replace advice given to you by your health care provider. Make sure you discuss any questions you have with your health care provider. Document Released: 06/26/2016 Document Revised: 04/21/2019 Document Reviewed: 04/21/2019 [employer] Patient Education 2020 [employer] Total Knee Replacement, Care After This sheet gives you information about how to care for yourself after your procedure. Your doctor may also give you more specific instructions. If you have problems or questions, contact your doctor. What can I expect after the procedure? After the procedure, it is common to have: Pain. Swelling. A small amount of blood coming from your cut from surgery (incision). Clear fluid coming from your cut from surgery. Limited movement of your knee. Follow these instructions at home: Medicines Take dtst-fbb-zloawpk and prescription medicines only as told by your doctor. If you were prescribed a blood thinner (anticoagulant), take it as told by your doctor. Ask your doctor if the medicine prescribed to you: ? Requires you to avoid driving or using heavy machinery. ? Can cause trouble pooping (constipation). You may need to take steps to prevent or treat trouble pooping: ? Drink enough fluid to keep your pee (urine) pale yellow. ? Take dbzr-ipw-qctkctj or prescription medicines. ? Eat foods that are high in fiber. These include beans, whole grains, and fresh fruits and vegetables. ? Limit foods that are high in fat and sugar. These include fried or sweet foods. Bathing Do not take baths, swim, or use a hot tub until your doctor approves. Ask your doctor if you may take showers. You may only be allowed to take sponge baths. Keep your bandage (dressing) dry until your doctor says it can be taken off. Incision care and drain care Follow instructions from your doctor about how to take care of your cut from surgery. Make sure you: ? Wash your hands with soap and water before and after you change your bandage. If you cannot use soap and water, use hand commercial lending vice president. ? Change your bandage as told by your doctor. ? Leave stitches (sutures), skin glue, or skin tape (adhesive) strips in place. They may need to stay in place for 2 weeks or longer. If tape strips get loose and curl up, you may trim the loose edges. Do not remove tape strips completely unless your doctor says it is okay. Check your cut from surgery and your drain site every day for signs of infection. Check for: ? More redness, swelling, or pain. ? More fluid or blood. ? Warmth. ? Pus or a bad smell. If you have a drain, follow instructions from your doctor about caring for it. Managing pain, stiffness, and swelling If told, put ice on your knee. ? Put ice in a plastic bag or use the icing device (cold flow pad or cryocuff) that you were given. Follow your doctor's directions about how to use the icing device. ? Place a towel between your skin and the bag or between your skin and the icing device. ? Leave the ice on for 20 minutes, 2 3 times per day. If told, put heat on your knee before you exercise. Use the heat source that your doctor recommends, such as a moist heat pack or a heating pad. ? Place a towel between your skin and the heat source. ? Leave the heat on for 20 30 minutes. ? Remove the heat if your skin turns bright red. This is very important if you are unable to feel pain, heat, or cold. You may have a greater risk of getting burned. Move your toes often. Raise (elevate) your knee above the level of your heart while you are sitting or lying down. ? Use several pillows to keep your leg straight. ? Do not put a pillow just under the knee. If the knee is bent for a long time, this may make the knee stiff. Wear elastic knee support as told by your doctor. Activity Rest as told by your doctor. Do not sit for a long time without moving. Get up to take short walks every 1 2 hours. This is important. Ask for help if you feel weak or unsteady. Ask your doctor what activities are safe for you. Avoid activities that put stress on your knees. These include running, jumping rope, and jumping jacks. Do not play contact sports until your doctor says it is okay. Do exercises as told by your physical therapist. If you have been sent home with a knee joint motion machine (continuous passive motion machine), use it as told by your doctor. Safety Do not use your leg to support your body weight until your doctor says that you can. Use crutches or a walker as told by your doctor. Do not drive until your doctor says it is okay. Ask your doctor when it is safe to drive. General instructions Do not use any products that contain nicotine or tobacco, such as cigarettes, e-cigarettes, and chewing tobacco. These can delay healing. If you need help quitting, ask your doctor. Wear special socks (compression stockings) as told by your doctor. Tell your doctor if you plan to have dental work. Also: ? Tell your dentist about your joint replacement. ? Ask your doctor if there are instructions you need to follow before dental care and routine cleanings. Keep all follow-up visits as told by your doctor. This is important. Contact a doctor if: You have more redness, swelling, or pain around your cut from surgery or your drain. You have more fluid or blood coming from your cut from surgery or your drain. You have pus or a bad smell coming from your cut from surgery or your drain. Your cut from surgery or your drain area feels warm to the touch. You have a fever. Your cut breaks open. You have knee pain that does not go away. The movement of your knee is getting worse. Your new joint feels loose. Get help right away if you have: Pain in your calf or thigh. Swelling in your calf or thigh. Shortness of breath. Trouble breathing. Chest pain. Summary After the procedure, it is common to have pain and swelling, blood or fluid coming from your cut from surgery, and trouble moving your knee. Follow instructions from your doctor about how to take care of your cut from surgery. Use crutches or a walker as told by your doctor. If you were prescribed a blood thinner, take it as told by your doctor. Keep all follow-up visits as told by your doctor. This is important. This information is not intended to replace advice given to you by your health care provider. Make sure you discuss any questions you have with your health care provider. Document Released: 05/27/2012 Document Revised: 07/14/2019 Document Reviewed: 10/17/2018 [employer] Patient Education 2020 [employer]. Additional Information VACCINATE! IT SAVES LIVES! Members of the community who have not yet received the COVID-19 vaccine and would like to receive it can visit one of [facility] vaccine clinics. There are many vaccine clinic locations within the [facility]. For locations and available times, please visit https://gettheshot.coronavirus.o hio.gov/. It is important to note that some COVID mobile vaccine clinics are held outdoors and may be canceled in rainy or stormy conditions. To learn more about pediatric vaccinations (ages 5-11), we invite you to visit the [facility] webpage. https://www.Stitch.ess.org/p ages/9991-Oiqfi-Ywsratediwp-Freq bloxfu-Ochkp-Ouuelzzfa.html To learn more about the COVID-19 vaccine, we invite you to visit the [facility] website for a list of frequently asked questions. [email or web address] [email or web address] Networks/assets/Patie qew-xub-Mwzlmduz/qacfj-Hbvxrba-H requently_Asked-Questions.pdf [facility] Patient Portal Access Instructions: Stay connected with your healthcare team and access your personal medical information anytime with the [facility] Patient Portal.If you would like a full copy of your medical records, please contact the [facility] Medical Records Department, Sunday through Sunday between 8a.m. and 4:30p.m. Please follow the directions below to access the portal: 1.Access the email account you provided upon registration to the [facility].2.Look for an invitation email from [facility].3.Open the email and access the invitation link: Accept Invitation to [facility].Fill in the required zamorano to create your account. Sign into [email or web address] with your username and password that you created in the above steps to stay up to date. You can then view a summary of results, a summary of your visits, and the ability to download your summaries to your computer or send the information securely to a physician. Remember that your healthcare information is confidential, so carefully consider who you will allow to register on the [facility] Patient Portal for access to your information. You can also access the [facility] Patient Portal on the [employer] teodora. Simply click on Health Records under Health Data and then click on the [facility] logo. HOW TO SAFELY DISPOSE OF PRESCRIPTION MEDICATIONS Please use one of the following methods to safely dispose of your unused medications. 1.Use a drug disposal kit: the drug disposal pouch allows you to safely discard your old and unused drugs. Ask your nurse to give you one when you are discharged.2.Visit a local take-back location: Many local pharmacies and police departments have programs that collect old and unwanted prescription drugs. Call your local pharmacy or go to http://bit.ly/6X9Kw2g to find one close to you.3.Make use of household items: Use cat litter or old coffee grounds to dispose medications if other options are not available. Mix your drugs with these household products, seal them in an airtight container and throw it into the garbage. Call [facility]: [phone] to be sure your drugs can be disposed of in this way. Some medicines may require a different approach.4.Never flush your medications down the toilet. IF YOU HAVE BEEN PRESCRIBED AN OPIOID FOR PAIN If you have been prescribed an opioid (such as hydrocodone, oxycodone or morphine), it is critical to understand the possible side effects and risks of opioid pain medications. Even when taken as directed, opioids can have several side effects including: Tolerance, meaning you might need to take more of a medication for the same pain relief. Nausea, vomiting and/or constipation. Sleepiness, dizziness, dry mouth, confusion, depression or itching. Physical dependence, meaning you have withdrawal symptoms when a medication is stopped, can develop within a few days. KNOW YOUR RESPONSIBILITIES It is important to know exactly how much and how often to take the opioid pain medications you are prescribed. Never take opioids in higher amounts or more often than prescribed. Do not combine opioids with alcohol or other drugs that cause drowsiness, such as benzodiazepines, also known as benzos, including diazepam and alprazolam, muscle relaxants or sleep aids. Never sell or share prescription opioids. This is illegal. Store opioids in a secure place and out of reach of others (including children, family, friends and visitors). The last page of this document has been signed and retained as a CHART COPY. Signatures Patient Education Materials Venous Thromboembolism Prevention Monitored Anesthesia Care, Care After Spinal Anesthesia and Epidural Anesthesia, Care After, Adiz-fj-Qnor Regional Anesthesia Total Knee Replacement, Care After, Ilqm-os-Nrix Medication Leaflets My discharge plan and instructions have been reviewed and explained to me and IVITA VICKI L understand my current condition and have read and understand these discharge instructions. I have received a written copy of the plan/instructions. If I have questions, I am aware that I should contact my doctor. 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 There is an arthroplasty. No loosening or failure is seen on the single view. There is gas in the soft tissues and skin ed IMPRESSION: Arthroplasty with immediate postoperative changes. Interpreted by: Wilfredo Owen MD Preliminary Report By: Wilfredo Owen MD Electronically signed By Wilfredo Owen MD Dictated Date: 12/27/2021 11:22:27 AM Prelim Date: 12/27/2021 11:23:19 AM Sign Date: 12/27/2021 11:23:19 AM Ordering Provider: ADELAIDA RON [facility] 12-27-2021 Summary of episod e note Discharge Instructions Thank you for allowing [facility] to assist you with your healthcare needs. The following is important discharge information regarding your hospital visit. Your Care Team ADDI TRIVEDI DO Your Diagnosis total knee arthroplasty What to do next Follow Up Appointments Follow Up with ADELAIDA RON MD When Why: follow up appointment with Kory in [place] on 01/09/22 at 3:15 physical therapy 12/29/21 at 11 with Jose at [facility] Where: [address] [facility] [place] [address]- [phone] Allergies Aleve (Hives) Medications Please ask your primary doctor or pharmacist before taking any other medication not listed, including over the counter drugs, herbal medications, vitamins and or supplements as they may interact with your home medications. What How Much When Instructions Last Dose Unchanged amitriptyline (amitriptyline 25 mg oral tablet) 1 tab(s) by mouth Daily at bedtime Unchanged celecoxib (celecoxib 200 mg oral capsule) 1 cap by mouth Two (2) times a day Unchanged cholecalciferol (Vitamin D3) 1,000 unit(s) by mouth Every day Unchanged DULoxetine (DULoxetine 60 mg oral delayed release capsule) 1 cap by mouth Once a day Unchanged famotidine (famotidine 20 mg oral tablet) 1 tab(s) by mouth Once a day Unchanged fluticasone nasal (fluticasone proprionate NASAL 50 mcg/ spray) 2 spray(s) each nostril Once a day (in the morning) Unchanged gabapentin (gabapentin 300 mg oral capsule) 1 cap by mouth Once a day Unchanged herbal/ nutritional product (Magnesium complex 400 mg) 1 tab by mouth Every day Unchanged LORazepam (LORazepam 0.5 mg oral tablet) 1 tab(s) by mouth Three (3) times a day as needed for as needed for anxiety Unchanged losartan (losartan 100 mg oral tablet) 1 tab(s) by mouth Once a day Unchanged metoprolol (Metoprolol Succinate ER 50 mg oral TABLET extended release) 1 tab(s) by mouth Once a day Unchanged montelukast (montelukast 10 mg oral tablet) 1 tab(s) by mouth Once a day Unchanged multivitamin (B-Complex with B-12 oral tablet) 1 tab(s) by mouth Every day Unchanged multivitamin (Naroomis Vicampo Women's Daily Multivitamin) 1 tab by mouth Once a day Unchanged multivitamin with minerals (Macular Health Formula oral capsule) 1 cap by mouth Once a day Unchanged ondansetron (ondansetron 4 mg oral tablet) 1 tab(s) by mouth Every 8 hours as needed for Nausea/Vomiting Unchanged oxyCODONE (oxyCODONE 5 mg oral tablet ( IMMEDIATE release )) 1 tab(s) by mouth Every 4 hours as needed for for pain Unchanged zinc gluconate (zinc (as gluconate) 50 mg oral tablet) 1 tab(s) by mouth Every day Please take this list to your next doctor s visit. Bring all medications you take, including over the counter medications, herbals and other supplements with you to your doctor s visit. Patients and families are reminded to discard old lists and to update any records with all medication providers or retail pharmacies. Education Materials Venous Thromboembolism Prevention Venous thromboembolism (VTE) is a condition in which a blood clot (thrombus) develops in the body. A deep vein thrombosis (DVT) is a blood clot that usually occurs in a deep vein in the leg or the pelvis, but it can also occur in the arm. Sometimes, pieces of a thrombus can break off and travel through the bloodstream to other parts of the body. When that happens, the thrombus is called an embolus. An embolus that travels to the lungs is called a pulmonary embolism. An embolism can block the blood flow in the blood vessels of other organs as well. How can this condition affect me? VTE is a serious health condition that can cause disability or . It is very important to get help right away. Do not ignore your symptoms. What can increase my risk? You are more likely to develop this condition if you: Have had recent major surgery or trauma. Have certain health conditions, such as cancer. Are in the hospital for a sudden illness. Have not moved for a long period of time, such as if you are on bed rest or traveling a long distance. Take certain medicines, such as control pills or hormone replacement therapy. Are or recently gave . Have a personal or family history of VTE. Are overweight. Are 60 years of age or older. Use products that contain nicotine and tobacco. What actions can I take to prevent this? In the hospital A VTE may be prevented by taking medicines that are prescribed to prevent blood clots (anticoagulants). You can also help to prevent VTE while in the hospital by taking these actions: Get out of bed and walk. Ask your health care provider if this is safe for you to do. Ask your health care provider if you should use a sequential compression device (SCD). This is a machine that pumps air into compression sleeves that are wrapped around your legs. Ask your health care provider if you should wear tight, elastic stockings that apply pressure to the lower legs (compression stockings). Compression stockings are sometimes used with SCDs. At home after surgery Understand that you have an increased risk for VTE for the first 4 6 weeks after surgery. During this time: Avoid traveling for more than 4 hours. If you must travel after surgery, ask your health care provider about additional preventive actions that you can take. Avoid sitting or lying still for too long. If possible, get up and walk around one time every hour. Ask your health care provider when this is safe for you to do. While traveling Travel that takes more than 4 hours can increase the risk of a VTE. To prevent VTE when traveling: Exercise your arms and legs every hour. You can do this by standing, stretching, and bending and straightening your arms and legs. If you are traveling by airplane, train, or bus, walk up and down the aisle as often as possible to get your blood moving. If you are traveling by car, stop and get out of the car every hour to exercise your arms and legs and stretch. Other types of exercise might include: ? Keeping your feet flat on the ground and raising your toes. ? Switching from tightening the muscles in your calves and thighs to relaxing those same muscles while you are sitting. ? Pointing and flexing your feet at the ankle joints while you are sitting. Drink enough water to keep your urine pale yellow. Avoid drinking alcohol during long travel. Generally, it is not recommended that you take medicines to prevent DVT during routine travel. Activity Stay active. Avoid sitting or lying in bed for long periods of time without moving your arms and legs. Exercise by moving your arms and legs for 30 minutes or more every day. Try not to bump or injure your legs. Avoid crossing your legs when you are sitting. Lifestyle Do not use any products that contain nicotine or tobacco, such as cigarettes, e-cigarettes, and chewing tobacco. If you need help quitting, ask your health care provider. This is especially important if you take estrogen medicines. Avoid wearing tight clothing around your legs or waist. General information Wear compression stockings as told by your health care provider. These stockings help to prevent blood clots and reduce swelling in your legs. Do not let them bunch up when you are wearing them. Avoid using medicines that contain estrogen if you do not need them. These include control pills and hormone replacement therapy. Do not use pillows under your knees while lying down unless told by your health care provider. Maintain a healthy weight. Where to find more information Centers for Disease Control and Prevention: www.cdc.gov [employer] [employer]: www.heart.org Get help right away if: You have chest pain or shortness of breath. You cough up blood. You have a rapid or irregular heartbeat. You feel light-headed or dizzy. You have new or increased pain, swelling, or redness in an arm or leg. You have numbness or tingling in an arm or leg. You have blood in your vomit, stool, or urine. These symptoms may represent a serious problem that is an emergency. Do not wait to see if the symptoms will go away. Get medical help right away. Call your local emergency services (911 in the [place] Do not drive yourself to the hospital. Summary Venous thromboembolism (VTE) is a condition in which a blood clot (thrombus)develops in the body. A deep vein thrombosis (DVT) is a blood clot that usually occurs in a deep vein in the leg or the pelvis, but it can also occur in the arm. VTE is a serious health condition that can cause disability or . It is very important to get help right away. Do not ignore your symptoms. If you are traveling, exercise your arms and legs every hour. Stay active to help prevent blood clots. Avoid sitting or lying in bed for long periods of time without moving your arms and legs. This information is not intended to replace advice given to you by your health care provider. Make sure you discuss any questions you have with your health care provider. Document Released: 02/21/2010 Document Revised: 06/24/2019 Document Reviewed: 05/13/2019 [employer] Patient Education 2019 [employer]. Monitored Anesthesia Care, Care After These instructions provide you with information about caring for yourself after your procedure. Your health care provider may also give you more specific instructions. Your treatment has been planned according to current medical practices, but problems sometimes occur. Call your health care provider if you have any problems or questions after your procedure. What can I expect after the procedure? After your procedure, you may: Feel sleepy for several hours. Feel clumsy and have poor balance for several hours. Feel forgetful about what happened after the procedure. Have poor judgment for several hours. Feel nauseous or vomit. Have a sore throat if you had a breathing tube during the procedure. Follow these instructions at home: For at least 24 hours after the procedure: Have a responsible adult stay with you. It is important to have someone help care for you until you are awake and alert. Rest as needed. Do not: ? Participate in activities in which you could fall or become injured. ? Drive. ? Use heavy machinery. ? Drink alcohol. ? Take sleeping pills or medicines that cause drowsiness. ? Make important decisions or sign legal documents. ? Take care of children on your own. Eating and drinking Follow the diet that is recommended by your health care provider. If you vomit, drink water, juice, or soup when you can drink without vomiting. Make sure you have little or no nausea before eating solid foods. General instructions Take piou-wct-uctfljz and prescription medicines only as told by your health care provider. If you have sleep apnea, surgery and certain medicines can increase your risk for breathing problems. Follow instructions from your health care provider about wearing your sleep device: ? Anytime you are sleeping, including during daytime naps. ? While taking prescription pain medicines, sleeping medicines, or medicines that make you drowsy. If you smoke, do not smoke without supervision. Keep all follow-up visits as told by your health care provider. This is important. Contact a health care provider if: You keep feeling nauseous or you keep vomiting. You feel light-headed. You develop a rash. You have a fever. Get help right away if: You have trouble breathing. Summary For several hours after your procedure, you may feel sleepy and have poor judgment. Have a responsible adult stay with you for at least 24 hours or until you are awake and alert. This information is not intended to replace advice given to you by your health care provider. Make sure you discuss any questions you have with your health care provider. Document Released: 06/25/2016 Document Revised: 06/03/2018 Document Reviewed: 06/25/2016 [employer] Patient Education 2020 [employer]. Spinal Anesthesia and Epidural Anesthesia, Care After This sheet gives you information about how to care for yourself after your procedure. Your doctor may also give you more specific instructions. If you have problems or questions, call your doctor. Follow these instructions at home: For at least 24 hours after the procedure: Have a responsible adult stay with you. It is important to have someone help care for you until you are awake and alert. Rest as needed. Do not do activities where you could fall or get hurt (injured). Do not drive. Do not use heavy machinery. Do not drink alcohol. Do not take sleeping pills or medicines that make you sleepy (drowsy). Do not make important decisions. Do not sign legal documents. Do not take care of children on your own. Eating and drinking If you throw up (vomit), drink water, juice, or soup when nausea and vomiting stop. Drink enough fluid to keep your pee (urine) pale yellow. Make sure you do not feel like throwing up (nauseous) before you eat solid foods. Follow the diet that your doctor recommends. General instructions Return to your normal activities as told by your doctor. Ask your doctor what activities are safe for you. Take xkfb-gnl-ndgyljb and prescription medicines only as told by your doctor. If you have sleep apnea, surgery and certain medicines can raise your risk for breathing problems. Follow instructions from your doctor about when to wear your sleep device. Your doctor may tell you to wear your sleep device: ? Anytime you are sleeping, including during daytime naps. ? While taking prescription pain medicines, sleeping pills, or medicines that make you sleepy. Do not use any products that contain nicotine or tobacco. This includes cigarettes and e-cigarettes. ? If you need help quitting, ask your doctor. ? If you smoke, do not smoke by yourself. Make sure someone is nearby in case you need help. Keep all follow-up visits as told by your doctor. This is important. Contact a doctor if: It has been more than one day since your procedure and you feel like throwing up. It has been more than one day since your procedure and you throw up. You have a rash. Get help right away if: You have a fever. You have a headache that lasts a long time. You have a very bad headache. Your vision is blurry. You see two of a single object (double vision). You are dizzy or light-headed. You faint. Your arms or legs tingle, feel weak, or get numb. You have trouble breathing. You cannot pee (urinate). Summary After the procedure, have a responsible adult stay with you at home until you are fully awake and alert. Do not do activities that might get you injured. Do not drive, use heavy machinery, drink alcohol, or make important decisions for 24 hours after the procedure. Take medicines as told by your doctor. Do not use products that contain nicotine or tobacco. Get help right away if you have a fever, blurry vision, difficulty breathing or passing urine, or weakness or numbness in arms or legs. This information is not intended to replace advice given to you by your health care provider. Make sure you discuss any questions you have with your health care provider. Document Released: 06/26/2016 Document Revised: 02/15/2018 Document Reviewed: 06/26/2016 [employer] Patient Education 2020 [employer] Regional Anesthesia Regional anesthesia is a method used to temporarily block feeling in one area of the body. You may have regional anesthesia before a medical procedure or surgery. A health care provider who specializes in giving anesthesia (anesthesiologist) injects a type of medicine near a nerve or a group of nerves. This medicine makes that area of the body numb. Regional anesthesia allows you to be awake during the procedure or surgery but keeps you from feeling pain in the affected area. There are three types of regional anesthesia: Spinal anesthesia. This is a one-time injection of medicine into the fluid that surrounds your spinal cord. This numbs the area below and slightly above the injection site. Epidural anesthesia. This is another medicine that may be placed into your back, but just outside of the protective tissue that covers your spinal cord. Instead of a one-time injection, the medicine is often given gradually over time through a small tube (catheter)that remains in your back for as long as pain control is needed. Peripheral nerve block. This is an injection that is given in an area of the body other than the spine to block all feeling below the injection site. Peripheral nerve blocks may be given as a single injection before your procedure or may be given through a catheter for as long as you need pain control. Regional anesthesia can be used alone or in combination with other types of anesthesia. Compared to using medicine that makes you fall asleep (general anesthetic), regional anesthesia has many benefits, such as: Improved pain control after your surgery. Less nausea, vomiting, or drowsiness after surgery. A faster recovery. Tell a health care provider about: Any allergies you have. All medicines you are taking, including vitamins, herbs, eye drops, creams, and kmwn-tsl-ldlwjdl medicines. Any use of drugs, alcohol, or tobacco. Any problems you or family members have had with anesthetic medicines. Any blood disorders you have. Any surgeries you have had. Any medical conditions you have or have had, especially heart failure, chronic obstructive pulmonary disease (COPD), or sleep apnea. Whether you are or may be . What are the risks? Generally, this is a safe procedure. However, problems may occur, including: Pain. Nausea. Vomiting. Itching. Low blood pressure. Headache. Nerve damage. Infection. Bleeding around the injection site. Trouble urinating. Allergic reactions to medicine. What happens before the procedure? Staying hydrated Follow instructions from your health care provider about hydration, which may include: Up to 2 hours before the procedure you may continue to drink clear liquids, such as water, clear fruit juice, black coffee, and plain tea. Eating and drinking restrictions Follow instructions from your health care provider about eating and drinking, which may include: 8 hours before the procedure stop eating heavy meals or foods, such as meat, fried foods, or fatty foods. 6 hours before the procedure stop eating light meals or foods, such as toast or cereal. 6 hours before the procedure stop drinking milk or drinks that contain milk. 2 hours before the procedure stop drinking clear liquids. Medicines Ask your health care provider about: Changing or stopping your regular medicines. This is especially important if you are taking diabetes medicines or blood thinners. Taking medicines such as aspirin and ibuprofen. These medicines can thin your blood. Do not take these medicines unless your health care provider tells you to take them. Taking msnk-hld-nkejntl medicines, vitamins, herbs, and supplements. General instructions Plan to have someone take you home from the hospital or clinic. If you will be going home right after the procedure, plan to have someone with you for 24 hours. You may need to have blood or imaging tests. Ask your health care provider what steps will be taken to help prevent infection. These may include washing skin with a germ-killing soap. If you use a sleep apnea device, ask your health care provider whether you should bring it with you on the day of your surgery. What happens during the procedure? Depending on the medical procedure you are having done, an IV may be inserted into one of your veins. The anesthesiologist will do a physical exam to find the best location to give the regional anesthesia. To locate the nerve, he or she may also use: ? A device that activates the nerve and causes your muscles to twitch (nerve stimulator). ? An imaging tool that uses sound waves to create images of the area (ultrasound). You may be given a medicine to help you relax (sedative). A medicine called a local anesthetic may be injected to numb the area where the regional anesthetic will be injected. You will get regional anesthesia by injection or through a catheter. The anesthesiologist will check to make sure the medicine is working before the rest of your medical procedure begins. Depending on the type of regional anesthesia you received, you may have a small bandage (dressing) placed over the injection site. The procedure may vary among health care providers and hospitals. What can I expect after the procedure? After your procedure, it is common to have: Sleepiness. Nausea. Itching. Numbness. Shivering or feeling cold. Your blood pressure, heart rate, breathing rate, and blood oxygen level will be monitored until you leave the hospital or clinic. Follow these instructions at home: Do not drive for 24 hours if you were given a sedative during your procedure. Take mntn-rav-qvnxiat and prescription medicines only as told by your health care provider. Do not drive, exercise, or do any other activities that require coordination for 24 hours or as told by your health care provider. Ask your health care provider when you can return to your usual activities. Drink enough fluid to keep your urine pale yellow. If you had a dressing placed over the injection site, only remove it when told to do so by your health care provider. Keep all follow-up visits as told by your health care provider. This is important. Contact a health care provider if you: Continue to have nausea and vomiting for more than 1 day. Develop a rash. Have trouble urinating. Get help right away if you: Have bleeding from the injection site or bleeding under the skin at the injection site. Have redness, swelling, or pain around your injection site. Have a fever. Develop a headache. Develop new numbness or weakness. Summary Regional anesthesia is a method used to temporarily block feeling in one area of the body. It may be done to block pain during a medical procedure or surgery. Follow instructions from your health care provider about taking medicines and about eating and drinking before the procedure. Ask your health care provider when you can return to your usual activities after the procedure. This information is not intended to replace advice given to you by your health care provider. Make sure you discuss any questions you have with your health care provider. Document Released: 06/26/2016 Document Revised: 04/21/2019 Document Reviewed: 04/21/2019 [employer] Patient Education 2020 [employer] Total Knee Replacement, Care After This sheet gives you information about how to care for yourself after your procedure. Your doctor may also give you more specific instructions. If you have problems or questions, contact your doctor. What can I expect after the procedure? After the procedure, it is common to have: Pain. Swelling. A small amount of blood coming from your cut from surgery (incision). Clear fluid coming from your cut from surgery. Limited movement of your knee. Follow these instructions at home: Medicines Take tooo-gxj-gpodytn and prescription medicines only as told by your doctor. If you were prescribed a blood thinner (anticoagulant), take it as told by your doctor. Ask your doctor if the medicine prescribed to you: ? Requires you to avoid driving or using heavy machinery. ? Can cause trouble pooping (constipation). You may need to take steps to prevent or treat trouble pooping: ? Drink enough fluid to keep your pee (urine) pale yellow. ? Take txtl-ppp-yvsggjn or prescription medicines. ? Eat foods that are high in fiber. These include beans, whole grains, and fresh fruits and vegetables. ? Limit foods that are high in fat and sugar. These include fried or sweet foods. Bathing Do not take baths, swim, or use a hot tub until your doctor approves. Ask your doctor if you may take showers. You may only be allowed to take sponge baths. Keep your bandage (dressing) dry until your doctor says it can be taken off. Incision care and drain care Follow instructions from your doctor about how to take care of your cut from surgery. Make sure you: ? Wash your hands with soap and water before and after you change your bandage. If you cannot use soap and water, use hand commercial lending vice president. ? Change your bandage as told by your doctor. ? Leave stitches (sutures), skin glue, or skin tape (adhesive) strips in place. They may need to stay in place for 2 weeks or longer. If tape strips get loose and curl up, you may trim the loose edges. Do not remove tape strips completely unless your doctor says it is okay. Check your cut from surgery and your drain site every day for signs of infection. Check for: ? More redness, swelling, or pain. ? More fluid or blood. ? Warmth. ? Pus or a bad smell. If you have a drain, follow instructions from your doctor about caring for it. Managing pain, stiffness, and swelling If told, put ice on your knee. ? Put ice in a plastic bag or use the icing device (cold flow pad or cryocuff) that you were given. Follow your doctor's directions about how to use the icing device. ? Place a towel between your skin and the bag or between your skin and the icing device. ? Leave the ice on for 20 minutes, 2 3 times per day. If told, put heat on your knee before you exercise. Use the heat source that your doctor recommends, such as a moist heat pack or a heating pad. ? Place a towel between your skin and the heat source. ? Leave the heat on for 20 30 minutes. ? Remove the heat if your skin turns bright red. This is very important if you are unable to feel pain, heat, or cold. You may have a greater risk of getting burned. Move your toes often. Raise (elevate) your knee above the level of your heart while you are sitting or lying down. ? Use several pillows to keep your leg straight. ? Do not put a pillow just under the knee. If the knee is bent for a long time, this may make the knee stiff. Wear elastic knee support as told by your doctor. Activity Rest as told by your doctor. Do not sit for a long time without moving. Get up to take short walks every 1 2 hours. This is important. Ask for help if you feel weak or unsteady. Ask your doctor what activities are safe for you. Avoid activities that put stress on your knees. These include running, jumping rope, and jumping jacks. Do not play contact sports until your doctor says it is okay. Do exercises as told by your physical therapist. If you have been sent home with a knee joint motion machine (continuous passive motion machine), use it as told by your doctor. Safety Do not use your leg to support your body weight until your doctor says that you can. Use crutches or a walker as told by your doctor. Do not drive until your doctor says it is okay. Ask your doctor when it is safe to drive. General instructions Do not use any products that contain nicotine or tobacco, such as cigarettes, e-cigarettes, and chewing tobacco. These can delay healing. If you need help quitting, ask your doctor. Wear special socks (compression stockings) as told by your doctor. Tell your doctor if you plan to have dental work. Also: ? Tell your dentist about your joint replacement. ? Ask your doctor if there are instructions you need to follow before dental care and routine cleanings. Keep all follow-up visits as told by your doctor. This is important. Contact a doctor if: You have more redness, swelling, or pain around your cut from surgery or your drain. You have more fluid or blood coming from your cut from surgery or your drain. You have pus or a bad smell coming from your cut from surgery or your drain. Your cut from surgery or your drain area feels warm to the touch. You have a fever. Your cut breaks open. You have knee pain that does not go away. The movement of your knee is getting worse. Your new joint feels loose. Get help right away if you have: Pain in your calf or thigh. Swelling in your calf or thigh. Shortness of breath. Trouble breathing. Chest pain. Summary After the procedure, it is common to have pain and swelling, blood or fluid coming from your cut from surgery, and trouble moving your knee. Follow instructions from your doctor about how to take care of your cut from surgery. Use crutches or a walker as told by your doctor. If you were prescribed a blood thinner, take it as told by your doctor. Keep all follow-up visits as told by your doctor. This is important. This information is not intended to replace advice given to you by your health care provider. Make sure you discuss any questions you have with your health care provider. Document Released: 05/27/2012 Document Revised: 07/14/2019 Document Reviewed: 10/17/2018 [employer] Patient Education 2020 [employer]. Additional Information VACCINATE! IT SAVES LIVES! Members of the community who have not yet received the COVID-19 vaccine and would like to receive it can visit one of [facility] vaccine clinics. There are many vaccine clinic locations within the [facility]. For locations and available times, please visit [email or web address].o hio.gov/. It is important to note that some COVID mobile vaccine clinics are held outdoors and may be canceled in rainy or stormy conditions. To learn more about pediatric vaccinations (ages 5-11), we invite you to visit the [facility] webpage. [email or web address] [email or web address]-Rafdiazuduy-Freq mfqebk-[email or web address]-Vhlrtievw.[email or web address] To learn more about the COVID-19 vaccine, we invite you to visit the [facility] website for a list of frequently asked questions. [email or web address] [email or web address] [facility] Patient Portal Access Instructions: Stay connected with your healthcare team and access your personal medical information anytime with the [facility] Patient Portal.If you would like a full copy of your medical records, please contact the [facility] Medical Records Department, Sunday through Sunday between 8a.m. and 4:30p.m. Please follow the directions below to access the portal: 1.Access the email account you provided upon registration to the hospital.2.Look for an invitation email from [facility].3.Open the email and access the invitation link: Accept Invitation to [facility].Fill in the required zamorano to create your account. Sign into [email or web address] with your username and password that you created in the above steps to stay up to date. You can then view a summary of results, a summary of your visits, and the ability to download your summaries to your computer or send the information securely to a physician. Remember that your healthcare information is confidential, so carefully consider who you will allow to register on the [facility] Patient Portal for access to your information. You can also access the [facility] Patient Portal on the [employer]. Simply click on Health Records under Health Data and then click on the [facility] logo. HOW TO SAFELY DISPOSE OF PRESCRIPTION MEDICATIONS Please use one of the following methods to safely dispose of your unused medications. 1.Use a drug disposal kit: the drug disposal pouch allows you to safely discard your old and unused drugs. Ask your nurse to give you one when you are discharged.2.Visit a local take-back location: Many local pharmacies and police departments have programs that collect old and unwanted prescription drugs. Call your local pharmacy or go to http://GoHealth.Maven/8Y5Qq5t to find one close to you.3.Make use of household items: Use cat litter or old coffee grounds to dispose medications if other options are not available. Mix your drugs with these household products, seal them in an airtight container and throw it into the garbage. Call [facility]: [phone] to be sure your drugs can be disposed of in this way. Some medicines may require a different approach.4.Never flush your medications down the toilet. IF YOU HAVE BEEN PRESCRIBED AN OPIOID FOR PAIN If you have been prescribed an opioid (such as hydrocodone, oxycodone or morphine), it is critical to understand the possible side effects and risks of opioid pain medications. Even when taken as directed, opioids can have several side effects including: Tolerance, meaning you might need to take more of a medication for the same pain relief. Nausea, vomiting and/or constipation. Sleepiness, dizziness, dry mouth, confusion, depression or itching. Physical dependence, meaning you have withdrawal symptoms when a medication is stopped, can develop within a few days. KNOW YOUR RESPONSIBILITIES It is important to know exactly how much and how often to take the opioid pain medications you are prescribed. Never take opioids in higher amounts or more often than prescribed. Do not combine opioids with alcohol or other drugs that cause drowsiness, such as benzodiazepines, also known as benzos, including diazepam and alprazolam, muscle relaxants or sleep aids. Never sell or share prescription opioids. This is illegal. Store opioids in a secure place and out of reach of others (including children, family, friends and visitors). The last page of this document has been signed and retained as a CHART COPY. Signatures Patient Education Materials Venous Thromboembolism Prevention Monitored Anesthesia Care, Care After Spinal Anesthesia and Epidural Anesthesia, Care After, Wyvf-fh-Wfjf Regional Anesthesia Total Knee Replacement, Care After, Hfog-rs-Ppjm Medication Leaflets My discharge plan and instructions have been reviewed and explained to me and I,MIKAYLA GORMAN understand my current condition and have read and understand these discharge instructions. I have received a written copy of the plan/instructions. If I have questions, I am aware that I should contact my doctor. 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 There is an arthroplasty. No loosening or failure is seen on the single view. There is gas in the soft tissues and skin ed IMPRESSION: Arthroplasty with immediate postoperative changes. Interpreted by: Wilfredo Owen MD Preliminary Report By: Wilfredo Owen MD Electronically signed By Wilfredo Owen MD Dictated Date: 12/27/2021 11:22:27 AM Prelim Date: 12/27/2021 11:23:19 AM Sign Date: 12/27/2021 11:23:19 AM Ordering Provider: ADELA[facility] 12-27-2021 Anesthesiology Consult note Patient: MIKAYLA GORMAN Age: 76 years Sex: Female : 1945 Associated Diagnoses: None Author: DORA HUTCHINS Preoperative Information Time of last food or liquid consumption: 12/27/2021 00:00:00 Anesthesia history Patient's history: negative. Family's history: negative. Health Status Allergies: Allergic Reactions (Selected) Severity Not Documented Aleve- Hives., Allergies (1) ActiveReaction AleveHives Current medications: (Selected) Inpatient Medications Ordered Betadine 10% topical solution: 17.5 mL, mL/hr, Topical (INT), PREOP pharm Bicitra: 30 mL, Oral, PREOP pharm Bolus LR 1000 mL: 1,000 mL, IV Bolus, PREOP pharm CeleBREX: 400 mg, 2 cap(s), Oral, PREOP pharm Decadron: 10 mg, 1 mL, IV Push, AsDirected Kefzol: 2 gram(s), 200 mL/hr, IV Piggyback, PREOP pharm LR 1000 mL: 20 mL/hr, Intravenous, Stop: 12/28/21 17:59:00 EDT Naropin 25 mg + Toradol 15 mg + EPINEPHrine 1 mg/mL injectable solution 0.3 mg + morphine 2.5 mg...: 25 mg, 5 mL, mL/hr, Other, PREOP pharm Naropin 25 mg + Toradol 15 mg + EPINEPHrine 1 mg/mL injectable solution 0.3 mg + morphine 2.5 mg...: 25 mg, 5 mL, mL/hr, Other, PREOP pharm OxyCONTIN: 10 mg, 1 tab(s), Oral, PREOP pharm Pepcid IV: 20 mg, 2 mL, IV Push, PREOP pharm tranexamic acid 1 g / 100 mL 0.7% NaCl PMX: 1 gram(s), 100 mL, 300 mL/hr, IV Piggyback, AsDirected tranexamic acid 1 g / 100 mL 0.7% NaCl PMX: 1 gram(s), 100 mL, 300 mL/hr, IV Piggyback, AsDirected Documented Medications Documented B-Complex with B-12 oral tablet: 1 tab(s), Oral, Daily, 0 Refill(s) DULoxetine 60 mg oral delayed release capsule: 60 mg, 1 cap(s), Oral, qDay, 0 Refill(s) LORazepam 0.5 mg oral tablet: 0.5 mg, 1 tab(s), Oral, TID, PRN: as needed for anxiety, 0 Refill(s) Macular Health Formula oral capsule: 1 cap, Oral, qDay Magnesium complex 400 m tab, Oral, Daily, 0 Refill(s) Metoprolol Succinate ER 50 mg oral TABLET extended release: 50 mg, 1 tab(s), Oral, qDay, 30 tab(s), 0 Refill(s) [facility] Women's Daily Multivitamin: 1 tab, Oral, qDay, 0 Refill(s) Vitamin D3: 1,000 unit(s), Oral, Daily, 0 Refill(s) amitriptyline 25 mg oral tablet: 25 mg, 1 tab(s), Oral, qHS, 0 Refill(s) celecoxib 200 mg oral capsule: 200 mg, 1 cap(s), Oral, BID, 0 Refill(s) famotidine 20 mg oral tablet: 20 mg, 1 tab(s), Oral, qDay, 30 tab(s), 0 Refill(s) fluticasone proprionate NASAL 50 mcg/ spray: 2 spray(s), Nostril, each, qAM, 0 Refill(s) gabapentin 300 mg oral capsule: 300 mg, 1 cap(s), Oral, qDay, 60 cap(s), 0 Refill(s) losartan 100 mg oral tablet: 100 mg, 1 tab(s), Oral, qDay, 30 tab(s), 0 Refill(s) montelukast 10 mg oral tablet: 10 mg, 1 tab(s), Oral, qDay, 0 Refill(s) ondansetron 4 mg oral tablet: 4 mg, 1 tab(s), Oral, q8h, PRN: Nausea/Vomiting, 15 tab(s), 0 Refill(s) oxyCODONE 5 mg oral tablet ( IMMEDIATE release ): 5 mg, 1 tab(s), Oral, q4h, PRN: for pain, 0 Refill(s) zinc (as gluconate) 50 mg oral tablet: 50 mg, 1 tab(s), Oral, Daily, 0 Refill(s), Medications (13) Active Scheduled: (12) ceFAZolin 2 gram(s), IV Piggyback, PREOP pharm celecoxib 200 mg capsule 400 mg 2 cap(s), Oral, PREOP pharm citric acid-sodium citrate 334 mg-500 mg/5 mL (30 mL) Belia UD 30 mL, Oral, PREOP pharm dexamethasone 10 mg/mL (1mL) SDV 10 mg 1 mL, IV Push, AsDirected famotidine 20 mg/2 mL vial 20 mg 2 mL, IV Push, PREOP pharm Lactated Ringers Injection 1000 mL * Bolus * 1,000 mL, IV Bolus, PREOP pharm oxyCODONE 10 mg ER tablet 10 mg 1 tab(s), Oral, PREOP pharm povidone iodine topical 17.5 mL, Topical (INT), PREOP pharm ropivacaine 25 mg + ketorolac 15 mg + epinephrine 0.3 mg + morphine 2.5 mg 25 mg 5 mL, Other, PREOP pharm ropivacaine 25 mg + ketorolac 15 mg + epinephrine 0.3 mg + morphine 2.5 mg 25 mg 5 mL, Other, PREOP pharm tranexamic acid PMX 1 gram(s) 100 mL, IV Piggyback, AsDirected tranexamic acid PMX 1 gram(s) 100 mL, IV Piggyback, AsDirected Continuous: (1) Lactated Ringers 1000 mL 1,000 mL, Intravenous, 20 mL/hr PRN: (0) Problem list: Active Problems (7) Depression Endometrial cancer HTN (hypertension) 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 Family History: No family history items have been selected or recorded. Procedure history: CTR - carpal tunnel release ([id number]). Comments: 01/07/2021 13:21 EDT - Emily Morton RN Right Hysterectomy ([id number]). Breast reduction, bilateral ([id number]). Cholecystectomy ([id number]). Tonsillectomy ([id number]). Colonoscopy ([id number]). Prosthetic unicompartmental arthroplasty of left knee ([id number]). 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 Physical Examination No qualifying data available General: Alert and oriented. Airway: Normal temporomandibular joint mobility. Mallampati classification: II (soft palate, fauces, uvula visible). Head: Normocephalic. Dentition Evaluation: Intact. Neck: Supple. Respiratory: Lungs are clear to auscultation. Cardiovascular: Normal rate. Heart Sounds: Normal. Gastrointestinal: Soft. Musculoskeletal Normal range of motion. Integumentary: Intact. Neurologic: Alert. Review / Management Results review: No qualifying data available , Lab results 12/27/2021 6:48 EDT Infectious Disease Symptoms Patient states no symptoms Safety Brochure Information Reviewed Yes Renee Searcy Video Viewed No Teaching Evaluation Verbalizes/Nonverbally indicates understanding Admission Note-Nursing Same Day Patient History (Modified) 12/27/2021 6:43 EDT SN - Preop - CTm Pt in SDS Room 12/27/2021 6:42 . Assessment and Plan [place] [employer] (ASA) physical status classification: Class III. Anesthetic Preoperative Plan Premedication: intravenous. Anesthetic technique: Spinal. Regional: Spinal, Adductor Canal Block. Postoperative pain management: Per surgeon. Risks discussed: nausea, vomiting, headache, sore throat, dental injury, hypotension, allergic reaction, serious complications. Informed consent: signed by patient. Digitally Signed by DORA HUTCHINS on 12/27/2021 07:18 AM [facility] 12-16-2021 Note ORIGINAL EXAMINATION: CT OF THE RIGHT KNEE WITHOUT CONTRAST 12/16/2021 9:14 am TECHNIQUE: CT of the right knee was performed without the administration of intravenous contrast. Multiplanar reformatted images are provided for review. Automated exposure control, iterative reconstruction, and/or weight based adjustment of the mA/kV was utilized to reduce the radiation dose to as low as reasonably achievable. COMPARISON: None HISTORY ORDERING SYSTEM PROVIDED HISTORY: Reason for Exam: UNILATERAL PRIMARY OSTEOARTHRITIS, RIGHT KNEE pain FINDINGS: Bones/Joints: No evidence of acute fracture or dislocation. No aggressive appearing osseous abnormality or periostitis. There is moderate joint space narrowing of the medial tibiofemoral compartment and to a lesser degree of the lateral tibiofemoral compartment. Small marginal osteophytes and subchondral sclerosis is noted. Mild degenerative changes of the patellofemoral joint with mild joint space loss and small marginal osteophytes. Trace suprapatellar joint effusion. No osseous lesions seen in the limited views of the right pelvis and right lower extremity. Mild to moderate degenerative changes of the pubic symphysis. The tendons and ligaments are not well evaluated on this exam. Soft Tissue: No significant soft tissue edema or fluid collections. Mild atrophy of the gastrocnemius muscle. Minimal nonspecific infiltration of the prepatellar soft tissues. Visualized intrapelvic organs are within normal limits. No free fluid in the pelvis. No right pelvic lymphadenopathy. IMPRESSION: No acute findings. No osseous lesions. Moderate degenerative changes of the right knee, most prominent in the medial tibiofemoral compartment. I have personally reviewed the images of this examination and agree with the resident's findings and interpretation. Interpreted by: Thiago Lopez DO Preliminary Report By: Ken Regalado Electronically signed By Thiago Lopez DO Dictated Date: 12/16/2021 9:41:29 AM Prelim Date: 12/16/2021 4:03:26 PM Sign Date: 12/16/2021 4:03:26 PM Ordering Provider: ADELAIDA RON [facility] 12-16-2021 Note ORIGINAL EXAMINATION: CT OF THE RIGHT KNEE WITHOUT CONTRAST 12/16/2021 9:14 am TECHNIQUE: CT of the right knee was performed without the administration of intravenous contrast. Multiplanar reformatted images are provided for review. Automated exposure control, iterative reconstruction, and/or weight based adjustment of the mA/kV was utilized to reduce the radiation dose to as low as reasonably achievable. COMPARISON: None HISTORY ORDERING SYSTEM PROVIDED HISTORY: Reason for Exam: UNILATERAL PRIMARY OSTEOARTHRITIS, RIGHT KNEE pain FINDINGS: Bones/Joints: No evidence of acute fracture or dislocation. No aggressive appearing osseous abnormality or periostitis. There is moderate joint space narrowing of the medial tibiofemoral compartment and to a lesser degree of the lateral tibiofemoral compartment. Small marginal osteophytes and subchondral sclerosis is noted. Mild degenerative changes of the patellofemoral joint with mild joint space loss and small marginal osteophytes. Trace suprapatellar joint effusion. No osseous lesions seen in the limited views of the right pelvis and right lower extremity. Mild to moderate degenerative changes of the pubic symphysis. The tendons and ligaments are not well evaluated on this exam. Soft Tissue: No significant soft tissue edema or fluid collections. Mild atrophy of the gastrocnemius muscle. Minimal nonspecific infiltration of the prepatellar soft tissues. Visualized intrapelvic organs are within normal limits. No free fluid in the pelvis. No right pelvic lymphadenopathy. IMPRESSION: No acute findings. No osseous lesions. Moderate degenerative changes of the right knee, most prominent in the medial tibiofemoral compartment. I have personally reviewed the images of this examination and agree with the resident's findings and interpretation. Interpreted by: Thiago Lopez DO Preliminary Report By: Ken Regalado Electronically signed By Thiago Lopez DO Dictated Date: 12/16/2021 9:41:29 AM Prelim Date: 12/16/2021 4:03:26 PM Sign Date: 12/16/2021 4:03:26 PM Ordering Provider: ADELAIDA [facility] 10-26-2021 History of Presen t illness Narrative CC: Mikayla Gorman is a 76 year old female who presents to the office for follow up HPI: Overall feels like she is managing symptoms and recent health issues well. History of endometrial cancer, she has follow up with Dr. Villalba Oncologist and Dr. Moreira Radiation oncologist in the next 2-3 months. No new changes of symptoms. Right knee pain, chronic, has had symptoms long standing for years. History of left total knee replacement by Dr. Ron [facility]oped[facility] and did well with surgical correction. Interested in having right total knee replacement done next. Has upcoming appt with Dr. Ron on 11/03 and appointment with Cardiology team Dr. Bustos office on 12/21. She is hoping to have clearance today and then cardiac clearance soon so can pursue right knee replacement by late December. Anxiety, mood, stable, taking cymbalta and prn ativan as prescribed. Tolerating well. Bladder incontinence. Worse after her endometrial cancer, was sent to pelvic floor PHYSICAL THERAPY which she completed. Taylor it did help but knows needs to be more consistent with exercises. Didn't tolerate the oxybutynin well. Caused too dry of mouth. PAST MEDICAL HISTORY Diagnosis Date Abnormal glandular Papanicolaou smear of cervix Abn. Pap smear (cervix) Allergic rhinitis Arthritis Bilateral primary osteoarthritis of knee by Kory Espinoza on 10/04, 10/11, 10/18/2020 Chronic pain nerve related, neck, chronic Delayed emergence from general anesthesia Endometrial ca (HCC) 10/2017 Hypertension Mild concentric left ventricular hypertrophy (LVH) 10/2018 Mild left ventricular hypertrophy 10/2018 Rosacea PAST SURGICAL HISTORY Procedure Laterality Date ABDOMINAL SURGERY HX BIOPSY BREAST OPEN INCISIONAL Bx of breast, incisional, right, benign BREAST SURGERY HX COLONOSCOPY FLX DX W/COLLJ SPEC WHEN PFRMD 09/21/2020 COLPOSCOPY CERVIX UPPER/ADJACENT VAGINA Colposcopy DILATION & CURETTAGE DX&/THER NONOBSTETRIC 12/24/2017 Dilation & curettage EYE SURGERY HX HYSTERECTOMY HX 2018 w/ bilateral BSO LAPS SURG CHOLECYSTECTOMY W/CHOLANGIOGRAPHY 06/03/2009 Normal IOC NEUROPLASTY &/TRANSPOS MEDIAN NRV CARPAL TUNNE Carpal tunnel decomp, right REDUCTION OF LARGE BREAST Breast reduction TONSILLECTOMY HX VAGINAL HYSTERECTOMY Current Outpatient Medications Medication Sig LORazepam (ATIVAN) 0.5 mg Take 1 tablet by mouth three times daily as needed for up to 30 days. fluticasone (FLONASE) 50 mcg/actuation nasal spray Use 2 Sprays in each nostril once daily. Rinse mouth after use. DULoxetine (CYMBALTA) 60 mg capsule Take 1 capsule by mouth once daily. TAKE ONE CAPSULE BY MOUTH EVERY DAY FOR pinched nerve losartan (COZAAR) 100 mg tablet Take 1 tablet by mouth once daily. amitriptyline (ELAVIL) 25 mg tablet Take 1 tablet by mouth daily at bedtime. montelukast (SINGULAIR) 10 mg tablet Take 1 tablet by mouth once daily. gabapentin (NEURONTIN) 300 mg capsule Take 1-2 capsules by mouth daily at bedtime for 115 days. For pinched nerve celecoxib (CELEBREX) 200 mg capsule Take 1 capsule by mouth twice daily. metoprolol tartrate, short acting, (LOPRESSOR) 50 mg tablet Take 50 mg by mouth twice daily. multivit-minerals/folic/ginkgo (ONE DAILY WOMEN 50 PLUS ORAL) Take by mouth. vitamin B complex (B COMPLEX 1 ORAL) Take by mouth. vit A/vit C/vit E/zinc/copper (OCUVITE PRESERVISION ORAL) Take by mouth twice daily. Zinc 50 mg tab Take by mouth. glycopyrrolate (ROBINUL) 1 mg tablet Take 1 tablet by mouth twice daily. As needed for sweating Magnesium 30 mg tablet Take 30 mg by mouth twice daily. cholecalciferol (VITAMIN D3) 2,000 unit tablet Take 1 tablet by mouth once daily. No current facility-administered medications for this visit. ALLERGIES Allergen Reactions Aleve [Naproxen Sod* Hives Grass Pollen Seasonal [Other] Social History Tobacco Use Smoking status: Never Smokeless tobacco: Never Substance Use Topics Alcohol use: No Drug use: No ROS: See HPI PE: BP 130/84 Pulse 76 Temp (Src) 97.8 (Left Tympanic) Resp 16 Wt 199 lb (90.3kg) Gen: A&OX3, NAD, non-toxic appearing HEENT: PERRLA, EOMs intact b/l, nares without drainage, pharynx without erythema, exudate, lesions, or drainage. Uvula midline. Neck: No LAD, no thyromegaly, no meningismus. CV: RRR, no murmur Lungs: CTA b/l, no wheezing Skin: No rashes, lesions, or wounds on exposed skin. No edema, normal pulses Arthritis changes right knee with joint line TTP b/l with mild effusion without signs of instability of joint Gait slightly slowed due to pain ASSESSMENT/PLAN: 1. Essential hypertension, benign - ICD9: 401.1, ICD10: I10 (primary diagnosis) - good control - Continue current medication(s) - Encouraged dietary sodium restriction/DASH diet - Recommended regular aerobic exercise. - Recommend home blood pressure monitoring, to bring results in on next visit - Discussed need and benefit for weight loss. - Reviewed risks of HTN and principles of treatment - Goal of BP <130/80 - Recommend home or pharmacy blood pressure monitoring - Recommended no refined sugar, low refined starch, healthy oil intake (olive oil), healthy protein (fish) along the lines of the Mediterranean diet. - TSH BLD 2. IFG (impaired fasting glucose) - ICD9: 790.21, ICD10: R73.01 - recheck labs as ordered, need for diet changes and weight loss - HGB A1C - TSH BLD 3. Hyperlipidemia, mixed - ICD9: 272.2, ICD10: E78.2 - to be determined upon return of lab results - Encouraged following a low fat, low cholesterol diet. - Discussed the benefits of regular aerobic exercise and weight loss. - Check fasting lipid panel - COMP METABOLIC PANEL - CBC + DIFF - TSH BLD 4. Status post left partial knee replacement - ICD9: V43.65, ICD10: Z96.652 5. Vitamin D deficiency - ICD9: 268.9, ICD10: E55.9 Recheck labs, continue supplement - VITAMIN D 25 HYDROXY 6. Primary osteoarthritis of right knee - ICD9: 715.16, ICD10: M17.11 - okay for medical clearance for knee surgery if labs are stable and she has cardiac clearance at Dr. Bustos office, she is aware 7. Chronic pain of right knee - ICD9: 719.46, 338.29, ICD10: M25.561, G89.29 - okay for medical clearance for knee surgery if labs are stable and she has cardiac clearance at Dr. Bustos office, she is aware 8. Vitamin B12 deficiency - ICD9: 266.2, ICD10: E53.8 Recheck labs, continue supplement - VITAMIN B12 BLOOD 9. Mixed stress and urge urinary incontinence - ICD9: 788.33, ICD10: N39.46 - doesn't tolerate the oxybutynin well, ok to d/c medication 10. Anxiety - ICD9: 300.00, ICD10: F41.9 Continue same medication. 11. Obesity, Class II, BMI 35-39.9 - ICD9: 278.00, ICD10: E66.9 Stable - Behavioral intervention Addi Trivedi DO Return if no improvement. Follow up with Addi Trivedi DO. To ER if develops chest pain, shortness of breath Discussed risks, benefits, alternatives, and potential side effects of medications. Patient/Guardian expressed understanding and agreed with the plan. See patient instructions. Addi Trivedi DO [address] [place] [address] documented in this encounter [facility] 10-20-2021 Miscellaneous Notes PDMP website checked and validated. All prescriptions have been APPROPRIATELY filled. No suspicious activity was identified. 10/20/2021 by Jennifer Mejia APRN.CNP The following approved medication requests have been transmitted electronically. Signed Prescriptions Disp Refills LORazepam (ATIVAN) 0.5 mg 60 tablet 1 Sig: Take 1 tablet by mouth three times daily as needed for up to 30 days. DAVIS Class: C-IV KANDY: No Jennifer Mejia APRN.CNP Patient last visit with PCP 07/26/21 Follow up appointment scheduled 10/26/21 Trudy Chakraborty Ma documented in this encounter [facility] 09-26-2021 Miscellaneous Notes Patient phones requesting refills as follows: Pending Prescriptions Disp Refills FLUTICASONE PROPIONATE 50 MCG/ACTUATION NASAL SPRAY,SUSPENSION Sig: Use 2 Sprays in each nostril once daily. Rinse mouth after use. KANDY: No POLINA 07/26/21 NOV 10/26/21 Please review and advise. Jacob Tim LPN documented in this encounter [facility] 09-26-2021 Miscellaneous Notes Patient phones requesting refills as follows: Pending Prescriptions Disp Refills OXYBUTYNIN CHLORIDE ER 5 MG TABLET,EXTENDED RELEASE 24 HR 90 tablet 3 Sig: Take 1 tablet by mouth once daily. For bladder incontinence KANDY: No DULOXETINE 60 MG CAPSULE,DELAYED RELEASE 90 capsule 1 Sig: Take 1 capsule by mouth once daily. TAKE ONE CAPSULE BY MOUTH EVERY DAY FOR pinched nerve KANDY: No LOSARTAN 100 MG TABLET 90 tablet 1 Sig: Take 1 tablet by mouth once daily. KANDY: No AMITRIPTYLINE 25 MG TABLET 90 tablet 1 Sig: Take 1 tablet by mouth daily at bedtime. KANDY: No POLINA 07/26/21 NOV 10/26/21 Please review and advise. Jacob Tim LPN documented in this encounter [facility] 08-30-2021 Miscellaneous Notes Please inform patient that since she is having urinary symptoms, and urine culture is normal, can use Ciprofloxacin antibiotic twice a day with meals x 3 days to see if symptoms improve. No need for 7-10 day treatment since culture is normal Addi Trivedi DO The following approved medication requests have been transmitted electronically. Signed Prescriptions Disp Refills ciprofloxacin HCl (CIPRO) 250 mg tablet 6 tablet 0 Sig: Take 1 tablet by mouth twice daily for 3 days. Addi Trivedi DO See updated message from pt. Samantha Nava Ma Asked pt additional message as requested by PCP. Once responds forward to PCP. Samantha Nava Ma documented in this encounter [facility] 07-27-2021 Miscellaneous Notes Request for lab results sent to [facility]. Will place results on PCP desk when received. Bettina Stephens Ma Nurse's can you assist Dr. Trivedi with this? Thank you Please obtain copy of recent labs at [facility] Addi Trivedi DO documented in this encounter [facility] 07-26-2021 History of Presen t illness Narrative CC: Mikayla Gorman is a 75 year old female who presents to the office for follow up HPI: Previously Left low back pain, radiating into left lateral thigh and lower leg, started in June, no known /obvious cause, has had low back pain before but not to this degree. No bowel or bladder changes. Has been taking her gabapentin 300 mg at bedtime and amitriptyline 25 mg at bedtime as well as cymbalta 60 mg at bedtime. Has tried chiropractor without benefit Left >right knee pain, chronic OA changes primary, has seen Kory Espinoza at [facility] and just recently had 3 weeks of Euflexa injection. 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 Never on medication for this. Also with some rectal / fecal incontinence, hasn't had pelvic therapy yet. Interested in trying medication HTN, well controlled, no concerns, denies CP or dyspnea or dizziness/LH or ROY or edema legs. At follow up visit on 01/21/21 HTN, well controlled, no concerns, denies CP or dyspnea or dizziness/LH or ROY or edema legs. Recently had partial left knee replacement with Dr. Ron at [facility] on Sunday. Overall did well with surgery. Taking pain medication and doing her stretches and icing at home. Will start outpatient PHYSICAL THERAPY today. Feels her pain is well controlled, edema is minimal. Bladder incontinence, taking oxybutynin with benefit Anxiety, ativan as needed and taking her cymbalta, symptoms are stable, no concerns At last OFFICE VISIT on 04/25/21 She was able to have a lumbar spine injection in Feb. By Dr. Macedo. She feels that this was beneficial to help with lower leg tingling/numbness and her low back pain. She is taking her gabapentin and amitriptyline with benefit of control of pain Left total knee replacement, 3 months post operative, she is done with PHYSICAL THERAPY and she is doing her stretches/exercises at home. No pain, except for mild left inner thigh discomfort that comes and goes. She isn't otherwise exercising yet. Has had routing follow up with [facility] and radiation therapy specialist. No new concerns. She has also seen Physician Scribe Dr. Bustos in the Fall in Dec prior to her left knee replacement surgery. No new chest pressure or pain or dyspnea. Anxiety, stable, taking medications as prescribed, no concerns. Currently She feels her low back pain and neck pain is stable, has been seen by Dr. Macedo in pain management and has had success with injections. Right knee osteoarthritis, need for partial joint / total joint replacement surgery, not able to pursue surgery at this time due to daughter that has had a life threatening aortic dissection and will need her help over the next few months. Asking for corticosteroid joint injection today in right knee since has had benefit from this in the past- no benefit from artificial joint fluid injections in the past. History of endometrial cancer, s/p JODIE and BSO as well as radiation therapy 3 years ago. She is starting pelvic floor PHYSICAL THERAPY for her symptoms of urinary incontinence and pelvic support concerns. Has been recently seen by Dr. Villalba oncologist but hasn't had recent CT scan pelvis stating that insurnace is not approving it. Will be seeing her [facility] specialist upcoming next week to discuss further. Is concerned per patient since She is worried about risk of reoccurrence since not at 5 year abraham after diagnosis. PAST MEDICAL HISTORY Diagnosis Date Abnormal glandular Papanicolaou smear of cervix Abn. Pap smear (cervix) Allergic rhinitis Arthritis Bilateral primary osteoarthritis of knee by Kory Espinoza on 10/04, 10/11, 10/18/2020 Chronic pain nerve related, neck, chronic Delayed emergence from general anesthesia Endometrial ca (HCC) 10/2017 Hypertension Mild concentric left ventricular hypertrophy (LVH) 10/2018 Mild left ventricular hypertrophy 10/2018 Rosacea PAST SURGICAL HISTORY Procedure Laterality Date ABDOMINAL SURGERY HX BIOPSY BREAST OPEN INCISIONAL Bx of breast, incisional, right, benign BREAST SURGERY HX COLONOSCOPY FLX DX W/COLLJ SPEC WHEN PFRMD 09/21/2020 COLPOSCOPY CERVIX UPPER/ADJACENT VAGINA Colposcopy DILATION & CURETTAGE DX&/THER NONOBSTETRIC 12/24/2017 Dilation & curettage EYE SURGERY HX HYSTERECTOMY HX 2018 w/ bilateral BSO LAPS SURG CHOLECYSTECTOMY W/CHOLANGIOGRAPHY 06/03/2009 Normal IOC NEUROPLASTY &/TRANSPOS MEDIAN NRV CARPAL TUNNE Carpal tunnel decomp, right REDUCTION OF LARGE BREAST Breast reduction TONSILLECTOMY HX VAGINAL HYSTERECTOMY Current Outpatient Medications Medication Sig montelukast (SINGULAIR) 10 mg tablet Take 1 tablet by mouth once daily. gabapentin (NEURONTIN) 300 mg capsule Take 1-2 capsules by mouth daily at bedtime for 115 days. For pinched nerve amitriptyline (ELAVIL) 25 mg tablet Take 1 tablet by mouth daily at bedtime. DULoxetine (CYMBALTA) 60 mg capsule Take 1 capsule by mouth once daily. TAKE ONE CAPSULE BY MOUTH EVERY DAY FOR pinched nerve losartan (COZAAR) 100 mg tablet Take 1 tablet by mouth once daily. celecoxib (CELEBREX) 200 mg capsule Take 1 capsule by mouth twice daily. metoprolol tartrate, short acting, (LOPRESSOR) 50 mg tablet Take 50 mg by mouth twice daily. oxybutynin XL (DITROPAN XL) 5 mg 24 hr tablet Take 1 tablet by mouth once daily. For bladder incontinence fluticasone (FLONASE) 50 mcg/actuation nasal spray Use 2 Sprays in each nostril once daily. Rinse mouth after use. multivit-minerals/folic/ginkgo (ONE DAILY WOMEN 50 PLUS ORAL) Take by mouth. vitamin B complex (B COMPLEX 1 ORAL) Take by mouth. vit A/vit C/vit E/zinc/copper (OCUVITE PRESERVISION ORAL) Take by mouth twice daily. Zinc 50 mg tab Take by mouth. glycopyrrolate (ROBINUL) 1 mg tablet Take 1 tablet by mouth twice daily. As needed for sweating Magnesium 30 mg tablet Take 30 mg by mouth twice daily. cholecalciferol (VITAMIN D3) 2,000 unit tablet Take 1 tablet by mouth once daily. hydroCHLOROthiazide 12.5 mg capsule Take 1 capsule by mouth once daily. Current Facility-Administered Medications Medication Dose Route Frequency betamethasone acetate-betamethasone sodium phosphate 6 mg injection (CELESTONE) 6 mg OTHER ONCE ALLERGIES Allergen Reactions Aleve [Naproxen Sod* Hives Grass Pollen Seasonal [Other] Social History Tobacco Use Smoking status: Never Smoker Smokeless tobacco: Never Used Substance Use Topics Alcohol use: No Drug use: No ROS: See HPI PE: BP 150/90 Pulse 68 Temp (Src) 96.8 (Temporal) Resp 20 Wt 199 lb (90.3kg) Gen: A&OX3, NAD, non-toxic appearing HEENT: PERRLA, EOMs intact b/l, nares without drainage, pharynx without erythema, exudate, lesions, or drainage. Uvula midline. Neck: No LAD, no thyromegaly, no meningismus. CV: RRR, no murmur Lungs: CTA b/l, no wheezing Skin: No rashes, lesions, or wounds on exposed skin. Right knee medial >lateral joint line TTP with mild effusion present in joint without erythema Left knee with healed stable incision without signs of infection Trace peripheral edema, normal pulses INFORMED CONSENT Mikayla Navarroernan Medical Record: [id number] Date: 07/26/2021 Procedure:right knee joint corticosteroid injection The risks, benefits and anticipated outcomes of the procedure, the risks and benefits of the alternatives to the procedure and the roles and tasks of the personnel to be involved were discussed with the patient and the patient consents to the procedure and agrees to proceed. I verify that I personally obtained Mikayla Gorman's consent. Addi Trivedi DO [facility] Procedure: After discussing the risks, complications, and benefits of corticosteroid injection, as well as alternative treatments, the patient agreed to proceed. Under sterile prep, the Right: 1 knee was injected with 3 cc of 2% Lidocaine, and 1cc of 6 mg of Betamethasone. There were no complications, and good pain relief was achieved. ASSESSMENT/PLAN: 1. Primary osteoarthritis of right knee - ICD9: 715.16, ICD10: M17.11 (primary diagnosis) Corticosteroid joint injection given today, tolerated well, no complications, aware of post injection care - BETAMETHASONE ACETATE AND SODIUM PHOS 6 MG/ML SUSPENSION FOR INJECTION 2. Chronic pain of right knee - ICD9: 719.46, 338.29, ICD10: M25.561, G89.29 See above, f/u with orthopedics when ready to pursue surgery she is aware - BETAMETHASONE ACETATE AND SODIUM PHOS 6 MG/ML SUSPENSION FOR INJECTION 3. Essential hypertension, benign - ICD9: 401.1, ICD10: I10 - good control - Continue current medication(s) - Encouraged dietary sodium restriction/DASH diet - Recommended regular aerobic exercise. - Recommend home blood pressure monitoring, to bring results in on next visit - Goal of BP <130/80 4. Cervical radiculopathy - ICD9: 723.4, ICD10: M54.12 - f/u with carlos Messina 5. IFG (impaired fasting glucose) - ICD9: 790.21, ICD10: R73.01 - stable, recheck labs 6. Hyperlipidemia, mixed - ICD9: 272.2, ICD10: E78.2 - to be determined upon return of lab results - Encouraged following a low fat, low cholesterol diet. - Discussed the benefits of regular aerobic exercise and weight loss. - Check fasting lipid panel 7. Status post left partial knee replacement - ICD9: V43.65, ICD10: Z96.652 - stable 8. History of endometrial cancer - ICD9: V10.42, ICD10: Z85.42 - needs to have routine follow up with NO EXPERIENCE ONC and Oncologist, concerned that she should be continuing routine CT pelvis for monitoring at this time per specialist Addi Trivedi DO Return if no improvement. Follow up with Addi Trivedi DO. To ER if develops chest pain, shortness of breath Discussed risks, benefits, alternatives, and potential side effects of medications. Patient/Guardian expressed understanding and agreed with the plan. See patient instructions. Addi Trivedi DO [address] [place] [address] documented in this encounter [facility] 06-28-2021 Miscellaneous Notes The following approved medication requests have been transmitted electronically. Signed Prescriptions Disp Refills montelukast (SINGULAIR) 10 mg tablet 90 tablet 1 Sig: Take 1 tablet by mouth once daily. KANDY: No Yaz Trammell APRN.[employer] SALES MANAGER documented in this encounter [facility] 01-18-2021 Hospital Discharg e instructions Patient Education 01/18/2021 17:31:35 6- FAQ about SSI (05/28 IC)(CUSTOM) FAQs about Surgical SiteInfections (frequently asked questions) What is a Surgical Site Infection (SSI)? A surgical site infection is an infection that occurs after surgery in the part of the body where the surgery took place. Most patients who have surgery do not develop an infection. However, infections develop in about 1 to 3 out of every 100 patients who have surgery. Some of the common symptoms of a surgical site infection are: Redness and pain around the area where you had surgery Drainage of cloudy fluid from your surgical wound Fever Can SSIs be treated? Yes. Most surgical site infections can be treated with antibiotics. The antibiotic given to you depends on the bacteria (germs) causing the infection. Sometimes patients with SSIs also need another surgery to treat the infection. What are some of the things that hospitals are doing to prevent SSIs? To prevent SSIs, doctors, nurses, and other healthcare providers: Clean their hands and arms up to their elbows with an antiseptic agent just before the surgery. Clean their hands with soap and water or an alcohol-based hand rub before and after caring for each patient. May remove some of your hair immediately before your surgery using electric clippers if the hair is in the same area where the pro cedure will occur. They should not shave you with a razor. Wear special hair covers, masks, gowns, and gloves during surgery to keep the surgery area clean. Give you antibiotics before your surgery starts. In most cases, you should get antibiotics within 60 minutes before the surgery starts and the antibiotics should be stopped within 24 hours after surgery. Clean the skin at the site of your surgery with a special soap that kills germs. What can I do to help prevent SSIs? Before your surgery: Tell your doctor about other medical problems you may have. Health problems such as allergies, diabetes, and obesity could af fect your surgery and your treatment. Quit smoking. Patients who smoke get more infections. Talk to your doctor about how you can quit before your surgery. Do not shave near where you will have surgery. Shaving with a razor can irritate your skin and make it easier to develop an infection. At the time of your surgery: Speak up if someone tries to shave you with a razor before surgery. Ask why you need to be shaved and talk with your surgeon if you have any concerns. Ask if you will get antibiotics before surgery. After your surgery: * Make sure that your healthcare providers clean their hands before examining you, either with soap and water or an alcohol-based hand rub. Family and friends who visit you should not touch the surgical wound or dressings. Family and friends should clean their hands with soap and water or an alcohol-based hand rub before and after visiting you. If you do not see them clean their hands, ask them to clean their hands. If you do not see your providers clean their hands, please ask them to do so. What do I need to do when I go home from the hospital? Before you go home, your doctor or nurse should explain everything you need to know about taking care of your wound. Make sure you understand how to care for your wound before you leave the hospital. Always clean your hands before and after caring for your wound. Before you go home, make sure you know who to contact if you have questions or problems after you get home. If you have any symptoms of an infection, such as redness and pain at the surgery site, drainage, or fever, call your doctor immediately. If you have questions, please ask your doctor or nurse. Co-sponsered by: PEÑA, IDSA, AHA, APIC, CDC, The Joint Commission 01/18/2021 17:31:21 Monitored Anesthesia Care, Care After Monitored Anesthesia Care, Care After These instructions provide you with information about caring for yourself after your procedure. Your health care provider may also give you more specific instructions. Your treatment has been planned according to current medical practices, but problems sometimes occur. Call your health care provider if you have any problems or questions after your procedure. What can I expect after the procedure? After your procedure, you may: Feel sleepy for several hours. Feel clumsy and have poor balance for several hours. Feel forgetful about what happened after the procedure. Have poor judgment for several hours. Feel nauseous or vomit. Have a sore throat if you had a breathing tube during the procedure. Follow these instructions at home: For at least 24 hours after the procedure: Have a responsible adult stay with you. It is important to have someone help care for you until you are awake and alert. Rest as needed. Do not: ?Participate in activities in which you could fall or become injured. ?Drive. ?Use heavy machinery. ?Drink alcohol. ?Take sleeping pills or medicines that cause drowsiness. ?Make important decisions or sign legal documents. ?Take care of children on your own. Eating and drinking Follow the diet that is recommended by your health care provider. If you vomit, drink water, juice, or soup when you can drink without vomiting. Make sure you have little or no nausea before eating solid foods. General instructions Take zagn-ooh-aagydvg and prescription medicines only as told by your health care provider. If you have sleep apnea, surgery and certain medicines can increase your risk for breathing problems. Follow instructions from your health care provider about wearing your sleep device: ?Anytime you are sleeping, including during daytime naps. ?While taking prescription pain medicines, sleeping medicines, or medicines that make you drowsy. If you smoke, do not smoke without supervision. Keep all follow-up visits as told by your health care provider. This is important. Contact a health care provider if: You keep feeling nauseous or you keep vomiting. You feel light-headed. You develop a rash. You have a fever. Get help right away if: You have trouble breathing. Summary For several hours after your procedure, you may feel sleepy and have poor judgment. Have a responsible adult stay with you for at least 24 hours or until you are awake and alert. This information is not intended to replace advice given to you by your health care provider. Make sure you discuss any questions you have with your health care provider. Document Released: 06/25/2016 Document Revised: 06/03/2018 Document Reviewed: 06/25/2016 [employer] Patient Education 2020 [employer]. 01/18/2021 17:31:11 Total Knee Replacement, Care After, Yvyj-gr-Zrzu Total Knee Replacement, Care After This sheet gives you information about how to care for yourself after your procedure. Your doctor may also give you more specific instructions. If you have problems or questions, contact your doctor. What can I expect after the procedure? After the procedure, it is common to have: Pain. Swelling. A small amount of blood coming from your cut from surgery (incision). Clear fluid coming from your cut from surgery. Limited movement of your knee. Follow these instructions at home: Medicines Take svjs-akr-gyhyawn and prescription medicines only as told by your doctor. If you were prescribed a blood thinner (anticoagulant), take it as told by your doctor. Ask your doctor if the medicine prescribed to you: ?Requires you to avoid driving or using heavy machinery. ?Can cause trouble pooping (constipation). You may need to take steps to prevent or treat trouble pooping: ?Drink enough fluid to keep your pee (urine) pale yellow. ?Take hyrv-fqq-ojqpncr or prescription medicines. ?Eat foods that are high in fiber. These include beans, whole grains, and fresh fruits and vegetables. ?Limit foods that are high in fat and sugar. These include fried or sweet foods. Bathing Do not take baths, swim, or use a hot tub until your doctor approves. Ask your doctor if you may take showers. You may only be allowed to take sponge baths. Keep your bandage (dressing) dry until your doctor says it can be taken off. Incision care and drain care Follow instructions from your doctor about how to take care of your cut from surgery. Make sure you: ?Wash your hands with soap and water before and after you change your bandage. If you cannot use soap and water, use hand commercial lending vice president. ?Change your bandage as told by your doctor. ?Leave stitches (sutures), skin glue, or skin tape (adhesive) strips in place. They may need to stay in place for 2 weeks or longer. If tape strips get loose and curl up, you may trim the loose edges. Do not remove tape strips completely unless your doctor says it is okay. Check your cut from surgery and your drain site every day for signs of infection. Check for: ?More redness, swelling, or pain. ?More fluid or blood. ?Warmth. ?Pus or a bad smell. If you have a drain, follow instructions from your doctor about caring for it. Managing pain, stiffness, and swelling If told, put ice on your knee. ?Put ice in a plastic bag or use the icing device (cold flow pad or cryocuff) that you were given. Follow your doctor's directions about how to use the icing device. ?Place a towel between your skin and the bag or between your skin and the icing device. ?Leave the ice on for 20 minutes, 2 3 times per day. If told, put heat on your knee before you exercise. Use the heat source that your doctor recommends, such as a moist heat pack or a heating pad. ?Place a towel between your skin and the heat source. ?Leave the heat on for 20 30 minutes. ?Remove the heat if your skin turns bright red. This is very important if you are unable to feel pain, heat, or cold. You may have a greater risk of getting burned. Move your toes often. Raise (elevate) your knee above the level of your heart while you are sitting or lying down. ?Use several pillows to keep your leg straight. ?Do not put a pillow just under the knee. If the knee is bent for a long time, this may make the knee stiff. Wear elastic knee support as told by your doctor. Activity Rest as told by your doctor. Do not sit for a long time without moving. Get up to take short walks every 1 2 hours. This is important. Ask for help if you feel weak or unsteady. Ask your doctor what activities are safe for you. Avoid activities that put stress on your knees. These include running, jumping rope, and jumping jacks. Do not play contact sports until your doctor says it is okay. Do exercises as told by your physical therapist. If you have been sent home with a knee joint motion machine (continuous passive motion machine), use it as told by your doctor. Safety Do not use your leg to support your body weight until your doctor says that you can. Use crutches or a walker as told by your doctor. Do not drive until your doctor says it is okay. Ask your doctor when it is safe to drive. General instructions Do not use any products that contain nicotine or tobacco, such as cigarettes, e-cigarettes, and chewing tobacco. These can delay healing. If you need help quitting, ask your doctor. Wear special socks (compression stockings) as told by your doctor. Tell your doctor if you plan to have dental work. Also: ?Tell your dentist about your joint replacement. ?Ask your doctor if there are instructions you need to follow before dental care and routine cleanings. Keep all follow-up visits as told by your doctor. This is important. Contact a doctor if: You have more redness, swelling, or pain around your cut from surgery or your drain. You have more fluid or blood coming from your cut from surgery or your drain. You have pus or a bad smell coming from your cut from surgery or your drain. Your cut from surgery or your drain area feels warm to the touch. You have a fever. Your cut breaks open. You have knee pain that does not go away. The movement of your knee is getting worse. Your new joint feels loose. Get help right away if you have: Pain in your calf or thigh. Swelling in your calf or thigh. Shortness of breath. Trouble breathing. Chest pain. Summary After the procedure, it is common to have pain and swelling, blood or fluid coming from your cut from surgery, and trouble moving your knee. Follow instructions from your doctor about how to take care of your cut from surgery. Use crutches or a walker as told by your doctor. If you were prescribed a blood thinner, take it as told by your doctor. Keep all follow-up visits as told by your doctor. This is important. This information is not intended to replace advice given to you by your health care provider. Make sure you discuss any questions you have with your health care provider. Document Released: 05/27/2012 Document Revised: 07/14/2019 Document Reviewed: 10/17/2018 [employer] Patient Education 2020 [employer] 01/18/2021 17:30:59 Spinal Anesthesia and Epidural Anesthesia, Care After, Slig-bq-Evok Spinal Anesthesia and Epidural Anesthesia, Care After This sheet gives you information about how to care for yourself after your procedure. Your doctor may also give you more specific instructions. If you have problems or questions, call your doctor. Follow these instructions at home: For at least 24 hours after the procedure: Have a responsible adult stay with you. It is important to have someone help care for you until you are awake and alert. Rest as needed. Do not do activities where you could fall or get hurt (injured). Do not drive. Do not use heavy machinery. Do not drink alcohol. Do not take sleeping pills or medicines that make you sleepy (drowsy). Do not make important decisions. Do not sign legal documents. Do not take care of children on your own. Eating and drinking If you throw up (vomit), drink water, juice, or soup when nausea and vomiting stop. Drink enough fluid to keep your pee (urine) pale yellow. Make sure you do not feel like throwing up (nauseous) before you eat solid foods. Follow the diet that your doctor recommends. General instructions Return to your normal activities as told by your doctor. Ask your doctor what activities are safe for you. Take hayy-lxi-uflomae and prescription medicines only as told by your doctor. If you have sleep apnea, surgery and certain medicines can raise your risk for breathing problems. Follow instructions from your doctor about when to wear your sleep device. Your doctor may tell you to wear your sleep device: ?Anytime you are sleeping, including during daytime naps. ?While taking prescription pain medicines, sleeping pills, or medicines that make you sleepy. Do not use any products that contain nicotine or tobacco. This includes cigarettes and e-cigarettes. ?If you need help quitting, ask your doctor. ?If you smoke, do not smoke by yourself. Make sure someone is nearby in case you need help. Keep all follow-up visits as told by your doctor. This is important. Contact a doctor if: It has been more than one day since your procedure and you feel like throwing up. It has been more than one day since your procedure and you throw up. You have a rash. Get help right away if: You have a fever. You have a headache that lasts a long time. You have a very bad headache. Your vision is blurry. You see two of a single object (double vision). You are dizzy or light-headed. You faint. Your arms or legs tingle, feel weak, or get numb. You have trouble breathing. You cannot pee (urinate). Summary After the procedure, have a responsible adult stay with you at home until you are fully awake and alert. Do not do activities that might get you injured. Do not drive, use heavy machinery, drink alcohol, or make important decisions for 24 hours after the procedure. Take medicines as told by your doctor. Do not use products that contain nicotine or tobacco. Get help right away if you have a fever, blurry vision, difficulty breathing or passing urine, or weakness or numbness in arms or legs. This information is not intended to replace advice given to you by your health care provider. Make sure you discuss any questions you have with your health care provider. Document Released: 06/26/2016 Document Revised: 02/15/2018 Document Reviewed: 06/26/2016 [employer] Patient Education 2020 [employer]. Follow Up Care 01/06/2021 08:31:19 With:KORY ESPINOZA Address: [facility] [address] [place] [phone] ([phone] When:01/19/2021 09:30:00 Comments:CALL OFFICE ON 01/19 IN THE AM TO SCHEDULE FOLLOW UP APPT [facility] documented as of this encounter (statuses as of 02/28/2022) [facility] History of Past illness Narrative* Problem Noted Date Resolved Date Acute midline low back pain with left-sided scia addy 10/20/2020 02/23/2022 Endometrial carcinoma 06/17/2018 02/23/2022 Pain in joint, shoulder region 10/09/2014 1 04/26/2021 documented as of this encounter (statuses as of 06/30/2022) [facility] History of Past illness Narrative* Problem Noted Date Resolved Date Acute midline low back pain with left-sided scia addy 10/20/2020 02/23/2022 Endometrial carcinoma 06/17/2018 02/23/2022 Pain in joint, shoulder region 10/09/2014 1 04/26/2021 documented as of this encounter (statuses as of 07/11/2022) [facility] History of Past illness Narrative* Problem Noted Date Resolved Date Acute midline low back pain with left-sided scia addy 10/20/2020 02/23/2022 Endometrial carcinoma 06/17/2018 02/23/2022 Pain in joint, shoulder region 10/09/2014 1 04/26/2021 documented as of this encounter (statuses as of 07/14/2022) [facility] History of Past illness Narrative* Problem Noted Date Resolved Date Acute midline low back pain with left-sided scia addy 10/20/2020 02/23/2022 Endometrial carcinoma 06/17/2018 02/23/2022 Pain in joint, shoulder region 10/09/2014 1 04/26/2021 documented as of this encounter (statuses as of 08/14/2022) [facility] History of Past illness Narrative* Problem Noted Date Diagnosed Date Resolved Date Acute midline low back pain with left-sided sciatica 10/20/2020 02/23/2022 Endometrial carcinoma 06/17/20182021 Pain in joint, shoulder region 10/09/2014 02/23/2022 documented as of this encounter (statuses as of 11/10/2022) [facility] History of Past illness Narrative* Problem Noted Date Diagnosed Date Resolved Date Acute midline low back pain with left-sided sciatica 10/20/2020 02/23/2022 Endometrial carcinoma 06/17/20182021 Pain in joint, shoulder region 10/09/2014 02/23/2022 documented as of this encounter (statuses as of 01/21/2023) [facility] History of Past illness Narrative* Problem Noted Date Diagnosed Date Resolved Date Acute midline low back pain with left-sided sciatica 10/20/2020 02/23/2022 Endometrial carcinoma 06/17/20182021 Pain in joint, shoulder region 10/09/2014 02/23/2022 documented as of this encounter (statuses as of 01/23/2023) [facility]-04[facility]21 History of Past illness Narrative* Problem Noted Date Diagnosed Date Resolved Date Acute midline low back pain with left-sided sciatica 10/20/2020 02/23/2022 Endometrial carcinoma 06/17/20182021 Pain in joint, shoulder region 10/09/2014 02/23/2022 documented as of this encounter (statuses as of 01/24/2023) [facility] Evaluation note* Diagnosis Primary osteoarthritis of right knee- Primary Primary localized osteoarthrosis, lower leg Chronic pain of right knee Essential hypertension, benign Cervical radiculopathy Brachial neuritis or radiculitis nos IFG (impaired fasting glucose) Impaired fasting glucose Hyperlipidemia, mixed Mixed hyperlipidemia Status post left partial knee replacement Knee joint replacement by other means History of endometrial cancer Personal history of malignant neoplasm of other parts of uterus [facility] Diagnosis Radiculopathy, lumbar region- Primary Thoracic or lumbosacral neuritis or radiculitis, unspecified Spinal stenosis of lumbar region, unspecified whether neurogenic claudication present Acute midline low back pain with left-sided sciatica Radiculopathy, lumbar region Thoracic or lumbosacral neuritis or radiculitis, unspecified Spinal stenosis of lumbar region, unspecified whether neurogenic claudication present Acute midline low back pain with left-sided sciatica [facility]* Diagnosis Mixed stress and urge urinary incontinence Mixed incontinence urge and stress (male)(female) Anxiety Anxiety state, unspecified Essential hypertension, benign Radiculopathy, lumbar region Thoracic or lumbosacral neuritis or radiculitis, unspecified Spinal stenosis of lumbar region, unspecified whether neurogenic claudication present Acute midline low back pain with left-sided sciatica [facility] Diagnosis Anxiety Anxiety state, unspecified [facility] Diagnosis Essential hypertension, benign- Primary IFG (impaired fasting glucose) Impaired fasting glucose Hyperlipidemia, mixed Mixed hyperlipidemia Status post left partial knee replacement Knee joint replacement by other means Vitamin D deficiency Unspecified vitamin D deficiency Primary osteoarthritis of right knee Primary localized osteoarthrosis, lower leg Chronic pain of right knee Vitamin B12 deficiency Other B-complex deficiencies Mixed stress and urge urinary incontinence Mixed incontinence urge and stress (male)(female) Anxiety Anxiety state, unspecified Obesity, Class II, BMI 35-39.9 Obesity, unspecified [facility] Diagnosis Bronchitis- Primary Bronchitis, not specified as acute or chronic Rhonchi Abnormal chest sounds Lower resp. tract infection Other diseases of respiratory system, not elsewhere classified [facility] Diagnosis Essential hypertension, benign- Primary Need for influenza vaccination Need for prophylactic vaccination and inoculation against influenza Anxiety Anxiety state, unspecified Cervical radiculopathy Brachial neuritis or radiculitis nos Encounter for screening mammogram for malignant neoplasm of breast Other screening mammogram Vitamin B12 deficiency Other B-complex deficiencies Vitamin D deficiency Unspecified vitamin D deficiency IFG (impaired fasting glucose) Impaired fasting glucose Hyperlipidemia, mixed Mixed hyperlipidemia Status post right partial knee replacement Knee joint replacement by other means documented in this encounter [facility] note* Diagnosis Osteopenia, senile Disorder of bone and cartilage, unspecified Screening for osteoporosis Special screening for osteoporosis documented in this encounter [facility] note* Diagnosis Encounter for screening mammogram for malignant neoplasm of breast- Primary Other screening mammogram documented in this encounter [facility] note* Diagnosis Endometrial cancer (CMS/HCC) (HCC)- Primary Malignant neoplasm of corpus uteri, except isthmus Vaginal dryness, menopausal [facility] Narrative No data available for this section [facility] Discharge instructions No data available for this section [facility] Progress note No data available for this section [facility] Reason for referral (narrative)* Diagnostic Procedure Only (Routine) - Pending Review Specialty Diagnoses / Procedures Referred By Matthew pizano Referred To Contact [facility] Diagnoses Encounter for screening mammogram for malignant neoplasm of breast Procedures TIANA SCREENING SCREENING MAMMOGRAPHY BI 2-VIEW BREAST INC Addi Pryor DO [address] [place] [address] [facility] [address] [place] [address] Referral ID Status Reason Start Date Expiration Date Visits Requested Visits Authorized [id number] Pending Review Auto-Generat ed Referral 2 03/29/2023 1 1 AN [facility] Diagnostic Procedure Only (Routine) - Pending Review Specialty Diagnoses / Procedures Referred By Matthew pizano Referred To Contact [facility] Diagnoses Encounter for screening mammogram for malignant neoplasm of breast Procedures TIANA SCREENING SCREENING MAMMOGRAPHY BI 2-VIEW BREAST INC CAD Jennifer Venegas APRN.NENITA [address] [place] [address] [facility] [address] [place] [address] Referral ID Status Reason Start Date Expiration Date Visits Requested Visits Authorized [id number] Pending Review Auto-Generat ed Referral 01/22/2023 02/21/2024 1 1 [facility] Summary Purpose Family History No Family History Records FoundNo Family History Records FoundNo Family History Records FoundNo Family History Records FoundNo Family History Records Found Advance Directives No Advanced Directives Records FoundDocuments on File Type Date Recorded 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 Advance Directive(s) 02/22/2021 9:21 AM Advance Directive(s) 02/11/2021 11:43 AM [facility] Advance Directive(s) 09/21/2020 9:06 AM Advance Directive(s) 09/02/2020 1:52 PM Documents on File Type Date Recorded 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 Advance Directive(s) 09/23/2021 11:35 AM Advance Directive(s) 02/22/2021 9:21 AM Advance Directive(s) 02/11/2021 11:43 AM [facility] Advance Directive(s) 09/21/2020 9:06 AM Advance Directive(s) 09/02/2020 1:52 PM Documents on File Type Date Recorded 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 Given 07/26/2021 1:40 PM EDT 6 mg Knee, Right Additional Source Comments INFORMATION SOURCE (unrecogn ized section and content) DATE CREATED AUTHOR AUTHOR'S ORGANIZ ATION 10/08/2021 [facility] DATE CREATED AUTHOR AUTHOR'S ORGANIZ ATION 12/28/2021 [facility] ([place]) DATE CREATED AUTHOR AUTHOR'S ORGANIZ ATION 02/22/2023 [facility] DATE CREATED AUTHOR AUTHOR'S ORGANIZ ATION 04/06/2023 [facility] Source Comments (unrecognize d section and content) In the event this informatio n is protected by the Federal Confidentiality of Alcohol and Drug Abuse Patient Records regulations: The Federal rules restrict any use of the information to criminally investigate or prosecute any alcohol or drug abuse patient.[facility] the event this information is protected by the Federal Confidentiality of Alcohol and Drug Abuse Patient Records regulations: The Federal rules restrict any use of the information to criminally investigate or prosecute any alcohol or drug abuse patient.[facility] the event this information is protected by the Federal Confidentiality of Alcohol and Drug Abuse Patient Records regulations: The Federal rules restrict any use of the information to criminally investigate or prosecute any alcohol or drug abuse patient.[facility] the event this information is protected by the Federal Confidentiality of Alcohol and Drug Abuse Patient Records regulations: The Federal rules restrict any use of the information to criminally investigate or prosecute any alcohol or drug abuse patient.[facility] the event this information is protected by the Federal Confidentiality of Alcohol and Drug Abuse Patient Records regulations: The Federal rules restrict any use of the information to criminally investigate or prosecute any alcohol or drug abuse patient.[facility] the event this information is protected by the Federal Confidentiality of Alcohol and Drug Abuse Patient Records regulations: The Federal rules restrict any use of the information to criminally investigate or prosecute any alcohol or drug abuse patient.[facility] the event this information is protected by the Federal Confidentiality of Alcohol and Drug Abuse Patient Records regulations: The Federal rules restrict any use of the information to criminally investigate or prosecute any alcohol or drug abuse patient.[facility] the event this information is protected by the Federal Confidentiality of Alcohol and Drug Abuse Patient Records regulations: The Federal rules restrict any use of the information to criminally investigate or prosecute any alcohol or drug abuse patient.[facility] the event this information is protected by the Federal Confidentiality of Alcohol and Drug Abuse Patient Records regulations: The Federal rules restrict any use of the information to criminally investigate or prosecute any alcohol or drug abuse patient.[facility] the event this information is protected by the Federal Confidentiality of Alcohol and Drug Abuse Patient Records regulations: The Federal rules restrict any use of the information to criminally investigate or prosecute any alcohol or drug abuse patient.[facility] the event this information is protected by the Federal Confidentiality of Alcohol and Drug Abuse Patient Records regulations: The Federal rules restrict any use of the information to criminally investigate or prosecute any alcohol or drug abuse patient.[facility] the event this information is protected by the Federal Confidentiality of Alcohol and Drug Abuse Patient Records regulations: The Federal rules restrict any use of the information to criminally investigate or prosecute any alcohol or drug abuse patient.[facility] the event this information is protected by the Federal Confidentiality of Alcohol and Drug Abuse Patient Records regulations: The Federal rules restrict any use of the information to criminally investigate or prosecute any alcohol or drug abuse patient.[facility] the event this information is protected by the Federal Confidentiality of Alcohol and Drug Abuse Patient Records regulations: The Federal rules restrict any use of the information to criminally investigate or prosecute any alcohol or drug abuse patient.[facility] the event this information is protected by the Federal Confidentiality of Alcohol and Drug Abuse Patient Records regulations: The Federal rules restrict any use of the information to criminally investigate or prosecute any alcohol or drug abuse patient.[facility] the event this information is protected by the Federal Confidentiality of Alcohol and Drug Abuse Patient Records regulations: The Federal rules restrict any use of the information to criminally investigate or prosecute any alcohol or drug abuse patient.[facility] the event this information is protected by the Federal Confidentiality of Alcohol and Drug Abuse Patient Records regulations: The Federal rules restrict any use of the information to criminally investigate or prosecute any alcohol or drug abuse patient.[facility] the event this information is protected by the Federal Confidentiality of Alcohol and Drug Abuse Patient Records regulations: The Federal rules restrict any use of the information to criminally investigate or prosecute any alcohol or drug abuse patient.[facility] the event this information is protected by the Federal Confidentiality of Alcohol and Drug Abuse Patient Records regulations: The Federal rules restrict any use of the information to criminally investigate or prosecute any alcohol or drug abuse patient.[facility] the event this information is protected by the Federal Confidentiality of Alcohol and Drug Abuse Patient Records regulations: The Federal rules restrict any use of the information to criminally investigate or prosecute any alcohol or drug abuse patient.[facility] Care Teams (unrecognized sec tion and content) Marble Setter Helper Relationship Specialty Start Date End Date Addi Trivedi, DO [address] [place] [address] PCP - General Family Practice 07/14/14 Marble Setter Helper Relationship Specialty Start Date End Date Addi Trivedi, DO [address] [facility] [place] [address] PCP - General Family Practice 07/14/14 Marble Setter Helper Relationship Specialty Start Date End Date Addi Trivedi, DO [address] [facility] [place] [address] PCP - General Family Practice 07/14/14 Marble Setter Helper Relationship Specialty Start Date End Date Addi rTivedi, DO [address] [facility] [place] [address] PCP - General Family Practice 07/14/14 Marble Setter Helper Relationship Specialty Start Date End Date Addi Trivedi, DO [address] [place] [address] PCP - General Family Practice 07/14/14 Marble Setter Helper Relationship Specialty Start Date End Date Addi Trivedi, DO [address] [place] [address] PCP - General Family Practice 07/14/14 Marble Setter Helper Relationship Specialty Start Date End Date Addi Trivedi, DO [address] [place] [address] PCP - General Family Practice 07/14/14 Marble Setter Helper Relationship Specialty Start Date End Date Addi Trivedi, DO [address] [place] [address] PCP - General Family Practice 07/14/14 Marble Setter Helper Relationship Specialty Start Date End Date Addi Trivedi, DO [address] [place] [address] PCP - General Family Medicine 07/14/14 Marble Setter Helper Relationship Specialty Start Date End Date Addi Trivedi, DO [address] [place] [address] PCP - General Family Medicine 07/14/14 Marble Setter Helper Relationship Specialty Start Date End Date Addi Trivedi, DO [address] [place] [address] PCP - General Family Medicine 07/14/14 Marble Setter Helper Relationship Specialty Start Date End Date Addi Trivedi, DO [address] [place] [address] PCP - General Family Medicine 07/14/14 Marble Setter Helper Relationship Specialty Start Date End Date Addi Trivedi, DO [address] [place] [address] PCP - General Family Medicine 07/14/14 Marble Setter Helper Relationship Specialty Start Date End Date Addi Trivedi, DO [address] [place], [place] [address] PCP - General Family Medicine 07/14/14 Marble Setter Helper Relationship Specialty Start Date End Date Addi Trivedi DO [address] [place], [place] [address] PCP - General Family Medicine 07/14/14 Marble Setter Helper Relationship Specialty Start Date End Date Addi Trivedi DO [address] [place] [address] PCP - General Family Medicine 07/14/14 Marble Setter Helper Relationship Specialty Start Date End Date Addi Trivedi DO [address] [place], [place] [address] PCP - General Family Medicine 07/14/14 Marble Setter Helper Relationship Specialty Start Date End Date Addi Trivedi [address] [place], [place] [address] PCP - General 01/02/18 Thiago Shah MD [address] [facility] [address] [place], [place] [id number] Consulting Physician Gynecologic Oncology 01/30/22 Magi Villa APRN - REAL ESTATE SALES MANAGER [address] [facility] [address] [place], [place] [id number] Nurse Practitioner Nurse Practitioner 08/01/22 Reason for Visit (unrecogniz ed section and content) Reason Comments Follow Up 3 months Reason Comments Results Reason Onset Date Comments Refill Request 09/26/2021 Reason Comments Cough x 2 weeks Reason Onset Date Comments Follow Up 4 months Immunizations 02/27/2022 Flu vaccination Reason Comments Question Reason Comments Endometrial Cancer 6 month follow up Care Team (unrecognized sect ion and content) Care Team Personnel Name: ADDI TRIVEDI DO Member Role: Primary Care Physician Address: Address: [address] [place] [address]- Care Team Related Persons Name: RIKKI GORMAN Address: Home [address] [place] [address] Care Team Personnel Name: TRIVEDIADDI GALLEGOS Member Role: Primary Care Physician Address: Address: [address] [place] [id number]- Care Team Related Persons Name: RIKKI GORMAN Address: Home [address] [place] [address] Care Team Personnel Name: ADDI TRIVEDI DO Member Role: Primary Care Physician Address: Address: [address] [place] [id number]- Care Team Related Persons Name: RIKKI GORMAN Address: Home [address] [place] [id number] FOR RECORDS PERTAINING TO PATIENTS WHO ARE OR HAVE BEEN ENROLLED IN A CHEMICAL DEPENDENCY/SUBSTANCEABUSE PROGRAM, SOME INFORMATION MAY BE OMITTED. This clinical summary was aggregated from multiple sources. Caution should be exercised in using it in the provision of clinical care. This summary normalizes information from multiple sources, and as a consequence, information in this document may materially change the coding, format and clinical context of patient data. In addition, data may be omitted in some cases. CLINICAL DECISIONS SHOULD BE BASED ON THE PRIMARY CLINICAL RECORDS. [employer] provides no warranty or guarantee of the accuracy or completeness of information in this document.
== END | disposition home or self-care (01) ==
LOC: OPBI 09:07
PROVIDERS: PCP Student in an Organized Health Care Education/Training Program; Referring Provider Nurse Practitioner Family; Visit Provider Nurse Practitioner Family
DX: Z12.31 Encounter for screening mammogram for malignant neoplasm of breast (principal)
CPT/HCPCS: 77063; 77067

== ENCOUNTER → 2024-04-25 | Outpatient (CLI) | payer MEDICARE, SELFPAY ==
[2023-03-01 07:28] VITALS: BMI 35.6
--- NOTE | 2024-04-25 10:44 | BI_ITS ---
PROCEDURE: SCRN MAMM (CAD)W/ROBERT BILAT REASON FOR EXAM: F, Age 78 y/o, mother with breast cancer. History of endometrial cancer. Annual follow-up. TECHNIQUE: Bilateral screening digital breast tomosynthesis with 2D and 3D images. Computer aided detection. COMPARISON: Prior exam(s) dating back to April 24, 2023.. FINDINGS: There are scattered areas of fibroglandular density. Stable asymmetry of breast tissue were more breast tissue is seen in the left breast as compared to the right side. Stable bilateral fat containing axillary lymph nodes. No suspicious masses, areas of developing architectural distortion, or suspicious calcifications. BI/SCRN MAMM (CAD)W/ROBERT BILAT IMPRESSION: BI-RADS 2: BENIGN. RECOMMEND ANNUAL MAMMOGRAPHIC SCREENING. Follow-up code: Routine Follow-up The patient will be notified of the results by letter. Reading Location: [place] [address]
== END | disposition home or self-care (01) ==
LOC: OPBI 10:41
PROVIDERS: PCP Student in an Organized Health Care Education/Training Program; Referring Provider Emergency Medicine; Visit Provider Emergency Medicine
DX: Z12.31 Encounter for screening mammogram for malignant neoplasm of breast (principal)
CPT/HCPCS: 77063; 77067

== ENCOUNTER → 2024-09-05 | Outpatient (CLI) | payer MEDICARE, SELFPAY ==
[2023-03-01 07:28] VITALS: BMI 35.6
--- NOTE | 2024-09-05 13:49 | ECHOD_ITS ---
Reason For Study Reason For Study: HOCM Procedure This was a 2D Doppler, Color Flow transthoracic echocardiogram. Exam performed in department. Left Ventricle Normal LV size. Left ventricular systolic function is normal. The left ventricular ejection fraction is 70 %. Stage 1 diastolic dysfunction. No regional wall motion abnormalities noted. Right Ventricle Normal RV size. Normal systolic function. Atria Normal left atrium. Normal right atrium. Mitral Valve Normal mitral valve. Tricuspid Valve Normal tricuspid valve. Aortic Valve Normal aortic valve. Pulmonic Valve Normal pulmonic valve. Great Vessels Normal aortic root. The pulmonary artery is normal size. Inferior vena cava collapse with respiration. Pericardium/Pleural No pericardial effusion. MMode/2D Measurements & Calculations LVIDd: 4.2 cm IVSd: 0.98 cm Ao root diam: 3.2 cm LVIDs: 1.6 cm LVPWd: 0.81 cm RVDd: 2.8 cm FS: 61.9 % LAV(MOD-bp): 26.2 ml LVAd ap4: 21.8 cm2 LVAd ap2: 17.6 cm2 LAV(MOD-bp) Indexed: 14.0 ml/m2 LVLd ap4: 7.0 cm LVLd ap2: 6.5 cm LAV(MOD-sp2): 23.4 ml EDV(MOD-sp4): 59.1 ml EDV(MOD-sp2): 42.5 ml LAV(MOD-sp4): 30.3 ml EDV(sp4-el): 57.8 ml EDV(sp2-el): 40.2 ml LVAs ap4: 11.2 cm2 LVAs ap2: 9.9 cm2 LVLs ap4: 6.3 cm LVLs ap2: 6.0 cm ESV(MOD-sp4): 17.6 ml ESV(MOD-sp2): 13.8 ml ESV(sp4-el): 17.0 ml ESV(sp2-el): 13.9 ml EF(MOD-sp4): 70.2 % EF(MOD-sp2): 67.4 % EF(sp4-el): 70.6 % SV(MOD-sp4): 41.5 ml SV(MOD-sp2): 28.6 ml SV(sp4-el): 40.8 ml SI(MOD-sp4): 22.2 ml/m2 SI(MOD-sp2): 15.3 ml/m2 LA A4 area: 13.5 cm2 LA dimension(2D): 3.4 cm RA A4 area: 11.1 cm2 Time Measurements MV dec time: 0.28 sec Doppler Measurements & Calculations MV E max joseph: 67.0 cm/sec Lat Peak E' Joseph: 5.3 cm/sec Med Peak E' Joseph: 8.1 cm/sec MV A max joseph: 115.0 cm/sec E/E' lat: 12.6 E/E' med: 8.2 MV E/A: 0.58 Ao V2 max: 159.1 cm/sec LV V1 max: 99.7 cm/sec MV dec slope: 241.9 cm/sec2 Ao max P.2 mmHg LV V1 max P.0 mmHg PA V2 max: 98.8 cm/sec ECHO/Echo Complete Interpretation Summary Normal LV size. Left ventricular systolic function is normal. The left ventricular ejection fraction is 70 %. Stage 1 diastolic dysfunction. Ordering Physician: David Bustos Referring Physician: David Bustos Performed By: Ashwini Uriostegui RDCS
== END | disposition home or self-care (01) ==
PROVIDERS: PCP Student in an Organized Health Care Education/Training Program; Referring Provider Internal Medicine Cardiovascular Disease; Visit Provider Internal Medicine Cardiovascular Disease
DX: I42.1 Obstructive hypertrophic cardiomyopathy (principal)
CPT/HCPCS: 93306

== ENCOUNTER 2024-10-27 11:30 | Outpatient (RCR) | payer MEDICARE, SELFPAY ==
[2023-03-01 07:28] VITALS: BMI 35.6
--- NOTE | 2024-09-25 09:02 | HP.OTEVAL_ITS ---
Patient's Visit Information Visit Information Visit Information: JDA GORMAN is a 79 year old F, referred to Occupational Therapy by RASHAD MasseyC, with a diagnosis of left LE lymhedema. Date of Evaluation: 09/24/24 Occupational Therapist: Kezia Galeas, CRUZITO/Nanci, CHT Subjective Subjective: This 79 year old female was seen for OT eval with dx of LE lymphedema. pt states for years she has had Lymphedema since her cancer treatment. But feels swelling in her foot started in August of this year. pt states she has used compressions socks but does not know the compression class. pt states she has not been able to wear a shoe on her left for at least 2 weeks or more. Pt states her shoe size is typically 7-7.5. pt states she does not exercise on a regular basis. pt states during the day she is up and moving around more. pt states she sleeps in a regular bed but edema in her foot does not go anywhere. pt would like to know what she can do to decrease her foot size to fit in her shoes. Lymphedema (Circumferential Measure) Mid-foot: right 20cm left 22cm Ankle: right 24cm left 27.5cm Lower calf: right 27cm left 35cm Largest calf: right 41cm left 46cm Below knee: right 39.5cm left 44cm Above knee: right 6cm left 60cm Lower Limb Functional Index Lower Extremity Functional Score: 70 Rehabilitation General Assessment: pt arrives with demo LLE edema above knee- pt is more concerned with foot swelling- pts skin is firm to touch and due to her neuropathy she has discomforting sensations to touch on bilateral LE. Pt has not been able to mtg. the swelling. pt would benefit from skilled OT services 4-6 visits to ed.pt in life long lymphedema mtg. Today therapist ed. pt in short stretch wrap to left LE, compression socks 20-30mmHg and use of Velcro altern atives. Pt demo understanding and was receptive. Therapist ed. pt on lymph stim exercise and gave handout. pt to return to be ed. on self manual lymph massage. Pt demo understanding and agree to POC. Rehabilitation Potential: Questionable Anticipated Interventions Anticipated Interventions: Education re Life-long lymphedema Management, Education re Self-Bandaging Techniques, Education re Skin Care and Precautions, Education re Self Massage Techniques and Education re Correct Donning Tech,Care&Wearing Sched Comp Garments Visit Plan Frequency: 1x/Week Duration: 6 Weeks TEXT: Thank you for the opportunity to evaluate your patient. For Medicare and Medicare HMO plans, please review the plan of care and approve it. It will need to be FAXED BACK to us at [phone] for Medicare purposes. Please let me know if there are questions or concerns regarding this plan of care. Physician Signature: Date:
--- NOTE | 2024-10-27 12:03 | OTREVAL_ITS ---
Re-Evaluation Intro: Jazlyn Mckeon, HOISTING ENGINE[employer], It has been my pleasure to treat JAD GORMAN over the last 3 visits for left LE lymhedema. Please see the progress note below for an update on the occupational therapy plan of care! Subjective Subjective: pt arrives with her compassion sock on- pt states she has been up on her feet a lot unpacking boxes from a move about a year ago. Objective Objective/Function: left mid-foot 20.5cm initial 22cm left ankle 26cm initial 27.5cm left lower calf 34cm initial 35cm left larges calf 45cm initial 46cm left below knee 43cm initial 44cm pt has worked 4 weeks on her own with conservative treatment of elevation- use of compression socks- and exercise. pt's decrease in measurements are not significant. Pt is at risk of lymphedema concerns /complications and would b enefit from a home compression pump to assist pt in life long mtg. of her dx of Lymphedema. pt agrees with POC as therapist will reach out to for order for home compression pump. Plan Plan Frequency: 1x/Week Duration: 6 Weeks Plan: following 4 weeks of failed conservative treatment ( compression garment 20-30 mmHg, elevation and lymph stimulation massage and ex.) pt has not make improvements with her LE limb size. pt would benefit from compression devices to assist pt in mtg. of her LE lymphedema. pt agrees and would like pump for home. Goals Goals Patient Goals: Learn how to Manage Lymphedema and Learn how to Apply Compression Stockings Anticipated Interventions Anticipated Interventions Anticipated Interventions: Education re Life-long lymphedema Management, Education re Self-Bandaging Techniques, Education re Skin Care and Precautions, Education re Self Massage Techniques and Education re Correct Donning Tech,Care&Wearing Sched Comp Garments Re-Evaluation Ending Re-evaluation ending: Please do not hesitate to contact me at [phone] by phone or if you have questions or concerns regarding this new plan of care! Sincerely, Kezia Galeas, OTR/L, CHT
== END 2024-10-27 19:00 | disposition home or self-care (01) ==
LOC: OT 11:30
PROVIDERS: PCP Student in an Organized Health Care Education/Training Program; Referring Provider Nurse Practitioner Primary Care; Visit Provider Nurse Practitioner Primary Care
DX: I89.0 Lymphedema, not elsewhere classified (principal)
CPT/HCPCS: 97110; 97140; 97166; 97167; 97530